=== PATIENT | male | born 1935 | race Caucasian/White ===

== ENCOUNTER 2017-10-08 15:38 | Emergency (ER) | payer MEDICARE, SELFPAY ==
[2017-10-08 15:40] VITALS: BP 154/99; PULSE 109; RESP 18; TEMP 38.8; O2SAT 97; BMI 28.3
--- NOTE | 2017-10-08 16:43 | RAD_ITS ---
STUDY: X-RAY CHEST REASON FOR EXAM: Male, 82 years old. Bronchitis. Cough. TECHNIQUE: Frontal and lateral views of the chest. COMPARISON: None. FINDINGS: The lungs are hyperexpanded. There are linear opacities at both bases compatible with atelectasis. There are no focal consolidations. There is no demonstrated pleural abnormality. There is borderline cardiomegaly. Normal mediastinum and lisa. There are prominent central pulmonary arteries. Normal visualized aortic arch and descending thoracic aorta. There is a dextroscoliosis of the thoracic spine. Normal visualized ribs, clavicles, and shoulders. There is no demonstrated abnormality of the visualized soft tissue structures of the upper abdomen. RAD/Chest PA and Lateral IMPRESSION: Borderline cardiomegaly with hyperexpansion and atelectasis. No acute pathology. Electronically Signed: Ruben Ortiz MD at 16:57 EST , Service support ,
[2017-10-08 17:53] VITALS: BP 114/68; PULSE 103; RESP 20; O2SAT 96
[2017-10-08 17:53] LABS: Absolute Lymphocyte Count 0.86 X10^3/ul (0.83-4.51); Absolute Neutrophil Count 7.6 X10^3/uL (2.0-7.7); Basophil# 0.01 X10^3/uL; Basophil% 0.1 % (0-1); Hematocrit 43.4 % (40-54); Hemoglobin 14.7 g/dl (13.0-16.5); Lymphocyte # 0.86 X10^3/ul (4.0); Lymphocyte % 9.3 % (19-41); Mean Corp Hgb Conc 33.9 g/gl (32-36); Mean Corpuscular Hgb 30.6 pg (27.0-32.0); Mean Corpuscular Volume 90.2 fL (80-94); Mean Platelet Vol. 10.5 fl (6.2-12.0); Monocyte# 0.84 X10^3/uL; Monocyte% 9.1 % (0-10); Neutrophil # 7.55 X10^3/uL (2.7-7.7); Neutrophil % 81.4 % (47-70); Platelet Count 141 K/mm3 (150-450); RBC Distribution Width SD 42.8 fl (35.1-43.9); Red Blood Count 4.81 M/mm3 (4.6-6.2); White Blood Count 9.3 K/mm3 (4.4-11.0)
[2017-10-08 17:54] LABS: POSITIVE COUNT NO; POSITIVE DIFFERENTIAL NO; POSITIVE MORPHOLOGY NO
[2017-10-08] MEDS: 0.9% Normal Saline 1,000 ML 999 ML IV (17:58)
[2017-10-08] MEDS: Acetaminophen 500 MG Tablet 1000 MG PO (17:58)
[2017-10-08 18:14] LABS: Anion Gap 8 (5-15); BUN 22 mg/dL (7-18); BUN/Creat Ratio 16.5 RATIO (10-20); Calcium,Total 8.8 mg/dL (8.5-10.1); Chloride 97 mmol/L (98-107); Creatinine, Serum 1.33 mg/dL (0.70-1.30); EST Glomerular Filtration Rate 55 mL/min (>60); Est Glom Filt Rate - Afr Amer 66 mL/min (>60); Estimated Creatinine Clearance 44.98 ml/min; Glucose 117 mg/dL (74-106); Potassium 3.3 mmol/L (3.5-5.1); Sodium Level 134 mmol/L (136-145)
[2017-10-08 18:15] LABS: Lactic Acid 1.6 mmol/L (0.4-2.0)
--- NOTE | 2017-10-08 19:26 | ED.DCSUM_ITS ---
- ER Visit Summary Date of Service: 10/08/17 Chief Complaint: Cough History of Present Illness: The patient is a 82 M who his primary care physician is in [place]. He reports that he is a cough began 5 days ago. Is productive yellow sputum without blood. He has had a fever to 102?, chills, and sweats. He has a sore throat is 5 out of 10 severity. He denies any chest pain or shortness of breath. She has been nausea and vomited 3 times. No blood in his emesis. He denies any abdominal pain or diarrhea. Physical Examination: Vitals: 101.9, 154/99, 109, 18, 97% room air is not hypoxic. General: Well-nourished and well-developed. Head: Normocephalic atraumatic. Neck: Supple, no lymphadenopathy. No JVD. Nontender. Cardiovascular: Regular rate and rhythm. No murmurs. Respiratory: No respiratory distress. Clear to auscultation bilaterally. Abdominal: Soft, nontender, nondistended, normal bowel sounds. No guarding, rebound, or peritoneal signs. Back: Nontender. Extremities: Nontender, no edema. Skin: Normal color, no rash. Neurologic: Alert and oriented ?3. Cranial nerves II through XII are intact. Normal strength and sensation. Psych: Normal affect. Test Results: CBC is marked for platelets 141, segmented neutrophils 81, lymphocytes of 9. Chem-7 is more for sodium 134, potassium 3.3, chloride 97, BUN 22, creatinine 1.33, glucose 117. Lactic acid is 1.6. Influenza is negative. Chest x-ray shows chronic changes, borderline cardiomegaly, and no infiltrate. Emergency Department Course and Treatment: She was treated with Tylenol p.o. and Zithromax p.o. He is resting comfortably and would like to go home. Treatment Plan: He will be discharged on Zithromax. Instructed to follow-up with his primary care physician in 3-5 days for another exam. Return to the emergency department for any worsening symptoms. Disposition: To home in improved and stable condition. Impression: 1. URI. This note was generated with [employer] software. It may contain incorrect words, spelling, and punctuation that were not noted in review of the chart prior to signing ED Disposition - Plan for ED Patient: Disposition: Home or Assisted Living Chief Complaint: Fever Instructions: ED Upper Resp Infec Abx Tx Prescriptions: Azithromycin [Zithromax] 250 mg PO DAILY #6 tablet Referrals: Doctor,Your [STAFF PHYSICIAN] - 3-5 Days
[2017-10-08 19:36] VITALS: BP 125/64; PULSE 94; RESP 18; O2SAT 94
[2017-10-08] MEDS: Azithromycin 250 MG Tablet 500 MG PO (19:36)
== END 2017-10-08 19:42 | disposition home or self-care (01) ==
PROVIDERS: Emergency Provider Emergency Medicine
DX: J06.9 Acute upper respiratory infection, unspecified (principal)
CPT/HCPCS: 71046; 80048; 83605; 85025; 87040; 87804; 96360; 99285; J7030; A4216

== ENCOUNTER 2019-03-01 23:59 | Emergency (ER) | payer MEDICARE, SELFPAY ==
[2019-03-01 23:59] VITALS: BP 115/70; PULSE 70; RESP 15; TEMP 36.6; O2SAT 97; BMI 26.5
--- NOTE | 2019-03-02 00:14 | RAD_ITS ---
STUDY: X-RAY CHEST REASON FOR EXAM: Male, 84 years old. Cough TECHNIQUE: Single AP portable view of the chest. COMPARISON: None. FINDINGS: The lungs are underexpanded. There is no demonstrated pleural abnormality. Normal size heart. Normal mediastinum and lisa. Normal visualized pulmonary arteries. Normal visualized aortic arch and descending thoracic aorta. There are diffuse degenerative changes of the visualized thoracic spine. There is degenerative osteoarthritis of the bilateral shoulders. There is no demonstrated abnormality of the visualized soft tissue structures of the upper abdomen. RAD/Chest PA and Lateral IMPRESSION: Degenerative changes, as described above. No demonstrated acute cardiopulmonary process. Electronically Signed: Hue Enriquez, at 0:51 EDT Tel , Service support ,
--- NOTE | 2019-03-02 00:15 | ED.VIS.GEN ---
History of Present Illness Chief Complaint: Complaint Informant: Patient Onset: Today Narrative: Increased urinary urgency throughout the day, he states he did fully urinate upon awakening. Had a fever today reported to 101 around 4 PM. Tylenol was given. History of BPH, saw urologist this past Sunday in [place]. Is not on Flomax. Denies abdominal distention. Increasing cough today normally chronic dry cough. No dyspnea. No chest pains. No vomiting or diarrhea. Normal bowel movements. Prior similar symptoms: No Past Medical History - Allergies and Home Meds Allergies/Adverse Reactions: Allergies No Known Allergies Allergy (Verified 03/02/19 00:03) Primary Care Physician: Care Physician,No Primary [NON-STAFF] - Smoking Status: Never smoker Review of Systems All systems negative except as indicated General: Reports: Fever. Denies: Chills, Sweats Eyes: Denies: Visual changes - bilaterally, Diplopia ENT: Denies: Rhinorrhea, Sore throat Cardiovascular: Denies: Chest pain, Palpitations Respiratory: Reports: Cough. Denies: Dyspnea, Dyspnea on exertion Gastrointestinal: Denies: Abdominal pain, Nausea, Vomiting, Diarrhea, Melena, Hematochezia Genitourinary: Denies: Dysuria, Hematuria, Frequency Musculoskeletal: Denies: Back pain, Extremity Pain Skin: Denies: Rash, Wounds Neurological: Denies: Headache, Weakness, Numbness Physical Exam Vital Signs/Narrative: Vital Signs Temp Pulse Resp BP Pulse Ox 03/01/19 23:59 97.8 F 70 15 115/70 97 Inital Vital Signs reviewed: Yes General: Well nourished, Well developed, No Acute Distress Head: Normocephalic, Atraumatic Eyes: Perrl, EOMI ENT: Moist mucous membranes, No rhinorrhea Neck: Supple, Nontender Cardiovascular: Regular rate, Regular rhythm, No murmurs Respiratory: No distress, CTA bilaterally, Chest nontender Abdomen: Soft, Nontender, Nondistended, Normal bowel sounds Back: Nontender, Normal Inspection. Negative for: CVA tenderness Extremities: Nontender, No edema Skin: Normal color, No rash Neurological: Alert, Oriented x3, Cranial nerves II-XII grossly intact, Normal Strength, Normal Sensation Psychological: Normal affect, Normal Mood Diagnostic/Tx/Re-eval Abnormal Lab Results 07/28/19 07/28/19 07/28/19 00:25 00:25 01:10 WBC 14.8 H RBC 4.74 Hgb 14.7 Hct 43.0 MCV 90.7 MCH 31.0 MCHC 34.2 RDW Std Deviation 40.8 RDW Coeff of Cecille 12.4 Plt Count 148 L MPV 10.4 Immature Gran % (Auto) 0.700 Neut % (Auto) 83.6 H Lymph % (Auto) 7.3 L [place] % (Auto) 8.1 Eos % (Auto) 0.1 Baso % (Auto) 0.2 Absolute Neuts (auto) 12.4 H Absolute Lymphs (auto) 1.08 Absolute Nucleated RBC 0.00 Nucleated RBC % 0 Sodium 138 Potassium 3.7 Chloride 103 Carbon Dioxide 28.0 Anion Gap 7 BUN 22 H Creatinine 1.44 H Estim Creat Clear Calc 40.13 Est GFR (MDRD) Af Amer 60 Est GFR (MDRD) Non-Af 50 L BUN/Creatinine Ratio 15.3 Glucose 125 H Calcium 8.9 Urine Color Straw Urine Clarity Sl. Cloudy Urine pH 6.0 Ur Specific [place] 1.010 Urine Protein Negative Urine Glucose (UA) Normal Urine Ketones Negative Urine Occult Blood 25 H Urine Nitrite Positive H Urine Bilirubin Negative Urine Urobilinogen Normal Ur Leukocyte Esterase 500 H Urine RBC 0 SEEN Urine WBC >100 SEEN Ur Squamous Epith Cells 0 SEEN Urine Bacteria 2+ Urine Mucus 0 SEEN - Medical Decision Making Patient vitals stable, nontoxic. Afebrile in the ED. Reported unclear if he is able to urinate therefore check labs. Creatinine 1.4, previous labs noted his creatinine 1.3. Likely chronic stage. White count 14 urine positive for infection urine culture sent. He is nontoxic, given Rocephin IV in the ED. Discussed outpatient treatment with antibiotics. Cipro started. Signs and symptoms discussed return otherwise follow-up with his PCP. All questions were answered. ED Disposition - Plan for ED Patient: Disposition: Home or Assisted Living Diagnosis: Urinary tract infection, Chronic kidney disease Instructions: Bladder Infection, Male (Adult), Chronic Kidney Disease Prescriptions: Ciprofloxacin [Cipro] 500 mg PO BID #20 tablet Referrals: Care Physician,No Primary [NON-STAFF] - Additional Instructions: Take antibiotic as prescribed. Follow-up with your doctor next 5 to 7 days for reevaluation.
[2019-03-02 00:45] LABS: Absolute Lymphocyte Count 1.08 X10^3/uL (0.83-4.51); Absolute Neutrophil Count 12.4 X10^3/uL (2.0-7.7); Basophil# 0.03 X10^3/uL; Basophil% 0.2 % (0-1); Eosinophil# 0.01 X10^3/uL; Eosinophils% 0.1 % (0-5); Hemoglobin 14.7 g/dL (13.0-16.5); Lymphocyte # 1.08 X10^3/ul (4.0); Lymphocyte % 7.3 % (19-41); Mean Corp Hgb Conc 34.2 g/dL (32-36); Mean Corpuscular Volume 90.7 fL (80-94); Mean Platelet Vol. 10.4 fl (6.2-12.0); Monocyte% 8.1 % (0-10); NRBC Flagged by Analyzer 0 % (0-5); Neutrophil # 12.39 X10^3/uL (2.7-7.7); Neutrophil % 83.6 % (47-70); Platelet Count 148 K/mm3 (150-450); RBC Distribution Width CV 12.4 % (11.6-14.6); RBC Distribution Width SD 40.8 fl (35.1-43.9); Red Blood Count 4.74 M/mm3 (4.6-6.2); White Blood Count 14.8 K/mm3 (4.4-11.0)
[2019-03-02 00:55] LABS: Anion Gap 7 (5-15); BUN 22 mg/dL (7-18); BUN/Creat Ratio 15.3 RATIO (10-20); Calcium,Total 8.9 mg/dL (8.5-10.1); Chloride 103 mmol/L (98-107); Creatinine, Serum 1.44 mg/dL (0.70-1.30); EST Glomerular Filtration Rate 50 mL/min (>60); Est Glom Filt Rate - Afr Amer 60 mL/min (>60); Estimated Creatinine Clearance 40.13 ml/min; Glucose 125 mg/dL (74-106); Potassium 3.7 mmol/L (3.5-5.1); Sodium Level 138 mmol/L (136-145)
[2019-03-02 01:04] VITALS: BP 121/62; PULSE 81; RESP 16; O2SAT 97
[2019-03-02 01:21] LABS: Mucous, Urine 0 SEEN /hpf (<or=2+); Red Blood Cells-Urine 0 SEEN /hpf (0-5); Squamous Epithelial Cells - UA 0 SEEN /hpf (0-5)
[2019-03-02 01:24] LABS: Color, Urine Straw (Yellow); Glucose, Dipstick Normal (Normal); Ketone-Dipstick Negative (Negative); Leukocyte Esterase-Dipstick 500 /ul (Negative); Nitrite-Dipstick Positive (Negative); Occult Blood-Urine 25 /ul (Negative); Protein-Dipstick Negative (Negative); Urine Bilirubin Dipstick Negative (Negative); Urine Clarity Sl. Cloudy (Clear); Urine Urobilinogen Normal (Normal)
[2019-03-02 01:36] LABS: Bacteria 2+ /hpf (None Seen); White Blood Cells >100 SEEN /hpf (0-5)
[2019-03-02] MEDS: Ceftriaxone 1 GM/50 ML BAG IV (02:30)
[2019-03-02 03:12] VITALS: BP 120/67; PULSE 78; RESP 16
== END 2019-03-02 03:20 | disposition home or self-care (01) ==
PROVIDERS: Emergency Provider Emergency Medicine
DX: N39.0 Urinary tract infection, site not specified (principal); N18.9 Chronic kidney disease, unspecified; R05 Cough; N40.0 Benign prostatic hyperplasia without lower urinary tract symptoms
CPT/HCPCS: 71046; 80048; 81001; 85025; 87086; 87088; 87186; 96365; 99283; J7030

== ENCOUNTER 2021-03-13 03:07 | Emergency (ER) | payer MEDICARE, SELFPAY ==
[2021-03-13 03:08] VITALS: BP 123/69; PULSE 100; RESP 16; TEMP 37.2; O2SAT 95; BMI 28.3
--- NOTE | 2021-03-13 03:30 | RAD_ITS ---
STUDY: X-RAY CHEST REASON FOR EXAM: Male, 86 years old. cough TECHNIQUE: Single AP portable view of the chest. COMPARISON: None. FINDINGS: The lungs are clear and expanded. There is no demonstrated pleural abnormality. Normal size heart. Normal mediastinum and lisa. Normal visualized pulmonary arteries. Normal visualized aortic arch and descending thoracic aorta. Normal visualized thoracic spine. There is degenerative osteoarthritis of the bilateral shoulders. There is no demonstrated abnormality of the visualized soft tissue structures of the upper abdomen. RAD/Chest 1 View (Portable) IMPRESSION: Degenerative changes, as described above. No demonstrated acute cardiopulmonary process. Electronically Signed: Hue Enriquez MD at 4:55 EDT Tel , Service support ,
[2021-03-13 04:00] LABS: Absolute Lymphocyte Count 0.94 X10^3/uL (0.83-4.51); Absolute Neutrophil Count 12.2 X10^3/uL (2.0-7.7); Basophil# 0.02 X10^3/uL; Basophil% 0.1 % (0-1); Hematocrit 46.2 % (40-54); Hemoglobin 15.3 g/dL (13.0-16.5); Lymphocyte # 0.94 X10^3/ul (0.83-4.51); Lymphocyte % 6.7 % (19-41); Mean Corp Hgb Conc 33.1 g/dL (32-36); Mean Corpuscular Hgb 30.2 pg (27.0-32.0); Mean Corpuscular Volume 91.3 fL (80-94); Mean Platelet Vol. 10.6 fl (6.2-12.0); Monocyte# 0.75 X10^3/uL; Monocyte% 5.3 % (0-10); NRBC Flagged by Analyzer 0 % (0-5); Neutrophil # 12.23 X10^3/uL (2.7-7.7); Neutrophil % 87.3 % (47-70); Platelet Count 163 K/mm3 (150-450); RBC Distribution Width CV 12.3 % (11.6-14.6); Red Blood Count 5.06 M/mm3 (4.6-6.2)
[2021-03-13 04:21] LABS: Anion Gap 7 (5-15); BUN 23 mg/dL (7-18); BUN/Creat Ratio 17.7 RATIO (10-20); Calcium,Total 9.1 mg/dL (8.5-10.1); Chloride 101 mmol/L (98-107); EST Glomerular Filtration Rate 56 mL/min (>60); Est Glom Filt Rate - Afr Amer 68 mL/min (>60); Estimated Creatinine Clearance 41.54 ml/min; Glucose 117 mg/dL (74-106); Potassium 3.9 mmol/L (3.5-5.1); Sodium Level 139 mmol/L (136-145)
[2021-03-13 04:27] LABS: Bacteria 0 SEEN /hpf (None Seen); Mucous, Urine 0 SEEN /hpf (<or=2+); Red Blood Cells-Urine 0 SEEN /hpf (0-5); Squamous Epithelial Cells - UA 0 SEEN /hpf (0-5); White Blood Cells 0 SEEN /hpf (0-5)
--- NOTE | 2021-03-13 04:56 | EX.ED.DYSGE1 ---
HPI History of Present Illness Chief Complaint: Fever Informant: patient and spouse/S.O. Narrative Narrative: Patient had a fever this evening. He states he took Tylenol and it kept going up. It went as high as 100.4. He had some mild chills. He had some mild nausea. He vomited once. He states since then his fever went down and he feels good. He has a chronic cough that has not changed. He has chronic nasal drainage but is not different. He was treated with Cipro recently after seeing an urgent care center. He is no longer on this and it stopped about 3 days ago. They think this was for possible prostatitis. However, he has no trouble urinating. He has no pain with bowel movements. He has no pain in the abdomen or pelvic area. There is no rashes. No known exposure to Covid. [facility] Medical History GERD (gastroesophageal reflux disease) High cholesterol Hypertension Myocardial infarct Home Medications atorvastatin 80 mg PO QHS 10/08/17 [History Last Taken Unknown] lisinopril 10 mg PO DAILY 10/08/17 [History Last Taken Unknown] aspirin 81 mg PO DAILY@0800 03/02/19 [History Last Taken Unknown] cholecalciferol (vitamin D3) 2,000 unit PO DAILY 03/02/19 [History Last Taken Unknown] ezetimibe 10 mg PO DAILY 03/02/19 [History Last Taken Unknown] hydrochlorothiazide 50 mg PO DAILY 03/02/19 [History Last Taken Unknown] metoprolol succinate 25 mg PO DAILY 03/02/19 [History Last Taken Unknown] multivitamin with minerals 1 ea PO DAILY 03/02/19 [History Last Taken Unknown] omeprazole magnesium 20 mg PO QWEEK 03/02/19 [History Last Taken Unknown] potassium chloride 8 meq PO DAILY 03/02/19 [History Last Taken Unknown] finasteride 5 mg PO DAILY 03/13/21 [History Last Taken Unknown] Allergy/AdvReac Type Severity Reaction Status Date / Time No Known Allergies Allergy Verified 03/13/21 03:10 Surgical History History of coronary artery stent placement Social History Smoking Status: Never smoker ROS ROS ED Constitutional Constitutional ED: Reports chills and fever(s); Denies sweats Eyes Eyes: Denies change in vision ENT ENT ED: Denies ear pain, rhinorrhea or sore throat Cardiovascular Cardiovascular: Denies chest pain or palpitations Respiratory/Chest Respiratory/Chest: Denies cough or dyspnea Gastrointestinal Gastrointestinal: Reports vomiting and other Details: Patient vomited once but he actually is not nauseated at all. ; Denies abdominal pain, constipation, diarrhea, melena or nausea Genitourinary Genitourinary ED: Denies dysuria or hematuria Musculoskeletal Musculoskeletal: Denies arthralgias, back pain or myalgias Integumentary Denies abscess or rash Neurologic Neurologic: Denies headache(s), paresthesias or weakness Endocrine Endocrinology: Denies polydipsia or polyuria Allergic/Immunologic Allergic/Immunologic ED: Denies mouth swelling or urticaria EXAM Physical Exam Const Vital Signs: 03/13/21 03:08 03/13/21 05:08 Temperature 99 F 98.1 F Temperature Source Oral Oral Pulse Rate 100 87 Respiratory Rate 16 22 H Blood Pressure 123/69 H 118/57 L Blood Pressure Mean 87 77 Pulse Ox 95 96 Oxygen Delivery Method Room Air Room Air Positive well nourished and well developed General Appearance ED: well developed HEENT Negative for trauma Neck supple Chest Wall inspection of chest normal Resp normal respiratory effort and clear to auscultation bilaterally Cardio regular rate, regular rhythm and no murmurs GI normal to inspection, nondistended, normoactive bowel sounds, non-tender and non-distended Palpation: soft Back/Spine no CVA tenderness Extremity normal to inspection General Extremety ED: Negative for edema or tenderness General Extremity: Negative for edema Neuro oriented x3 Sensorium / Orientation: alert Psych mental status grossly normal Skin no rashes or lesions noted and no wounds MDM MDM MDM Narrative Medical decision making narrative: Patient does have a slight elevation of his white count at 14.0. This is a nonspecific finding but certainly can go along with infection. Electrolytes are showing no marked abnormalities. Urinalysis came back negative so chest x-ray shows no acute process. Patient's been checked 2 more times. He is still asymptomatic. We have rechecked his temperature and its not elevated. He has no symptoms of prostatitis such as urinary changes or pain or pressure with a bowel movement. He is already been treated with Cipro. At this point we have pending urine and blood cultures. I think it is okay to get him home pending these. If he develops specific symptoms other than a low-grade fever they certainly should return. Especially if he develops urinary symptoms, abdominal or pelvic pain, trouble breathing or other findings. The highest temperature that we have reported was 100.4. Lab Data Labs: Laboratory Results - last 24 hr 03/13/21 03/13/21 03/13/21 03:20 03:20 04:15 WBC 14.0 H RBC 5.06 Hgb 15.3 Hct 46.2 MCV 91.3 MCH 30.2 MCHC 33.1 RDW Std Deviation 41.0 RDW Coeff of Cecille 12.3 Plt Count 163 MPV 10.6 Immature Gran % (Auto) 0.600 Neut % (Auto) 87.3 H Lymph % (Auto) 6.7 L [place] % (Auto) 5.3 Eos % (Auto) 0.0 Baso % (Auto) 0.1 Absolute Neuts (auto) 12.2 H Absolute Lymphs (auto) 0.94 Nucleated RBC % 0 Sodium 139 Potassium 3.9 Chloride 101 Carbon Dioxide 31.0 Anion Gap 7 BUN 23 H Creatinine 1.30 Estim Creat Clear Calc 41.54 Est GFR (MDRD) Af Amer 68 Est GFR (MDRD) Non-Af 56 L BUN/Creatinine Ratio 17.7 Glucose 117 H Calcium 9.1 Urine Color Yellow Urine Clarity Clear Urine pH 8.0 Ur Specific [place] 1.010 Urine Protein Negative Urine Glucose (UA) Normal Urine Ketones 5 H Urine Occult Blood Negative Urine Nitrite Negative Urine Bilirubin Negative Urine Urobilinogen Normal Ur Leukocyte Esterase Negative Urine RBC 0 SEEN Urine WBC 0 SEEN Ur Squamous Epith Cells 0 SEEN Urine Bacteria 0 SEEN Urine Mucus 0 SEEN Radiography Diagnostic Testing: Radiology Impression Chest X-Ray 03/13/21 03:30 IMPRESSION: Degenerative changes, as described above. No demonstrated acute cardiopulmonary process. Electronically Signed: Hue Enriquez MD at 4:55 EDT Tel , Service support , Discharge Plan Triage Chief Complaint: Fever ED Provider: Carlos Rivera Dx/Rx/DC Orders Clinical Impression: History of fever, Leukocytosis Instructions: ED FUO Adult Prescriptions: No Action atorvastatin 80 MG tablet 80 mg PO QHS RF: 0 lisinopril 10 MG tablet 10 mg PO DAILY RF: 0 potassium chloride 8 MEQ capsule, extended release 8 meq PO DAILY RF: 0 aspirin 81 MG tablet,chewable 81 mg PO DAILY@0800 RF: 0 hydrochlorothiazide 25 MG tablet 50 mg PO DAILY RF: 0 metoprolol succinate 25 MG tablet extended release 24 hr 25 mg PO DAILY RF: 0 multivitamin with minerals 1 EACH tablet 1 ea PO DAILY RF: 0 ezetimibe 10 MG tablet 10 mg PO DAILY RF: 0 omeprazole magnesium 20 MG tablet,delayed release (DR/EC) 20 mg PO QWEEK RF: 0 cholecalciferol (vitamin D3) 2,000 UNIT capsule 2,000 unit PO DAILY RF: 0 finasteride 5 mg Tablet 5 mg PO DAILY RF: 0 Referrals: HUGO PEREZ [Other] - 1-2 Days if not improving Disposition Disposition: Home, Self Care
[2021-03-13 05:04] LABS: Color, Urine Yellow (Yellow); Glucose, Dipstick Normal (Normal); Ketone-Dipstick 5 mg/dl (Negative); Leukocyte Esterase-Dipstick Negative /ul (Negative); Nitrite-Dipstick Negative (Negative); Occult Blood-Urine Negative /ul (Negative); Protein-Dipstick Negative (Negative); Urine Bilirubin Dipstick Negative (Negative); Urine Clarity Clear (Clear); Urine Urobilinogen Normal (Normal)
[2021-03-13 05:08] VITALS: BP 118/57; PULSE 87; RESP 22; TEMP 36.7; O2SAT 96
[2021-03-13 06:25] VITALS: BP 113/66; PULSE 83; RESP 22; O2SAT 97
== END 2021-03-13 06:27 | disposition home or self-care (01) ==
PROVIDERS: Emergency Provider Emergency Medicine
DX: D72.829 Elevated white blood cell count, unspecified (principal); K21.9 Gastro-esophageal reflux disease without esophagitis; E78.00 Pure hypercholesterolemia, unspecified; I10 Essential (primary) hypertension; Z79.899 Other long term (current) drug therapy
CPT/HCPCS: 71045; 80048; 81001; 85025; 87040; 87086; 87088; 87426; 96360; 99284; J7040; A4216

== ENCOUNTER 2023-10-13 23:33 | Emergency (ER) | payer MEDICARE, SELFPAY ==
[2023-10-13 23:34] VITALS: BP 126/70; PULSE 88; RESP 20; TEMP 36.6; O2SAT 93; BMI 28.3
--- NOTE | 2023-10-13 23:51 | EDS_ITS ---
HPI History of Present Illness Chief Complaint: Fever [facility] Medical History GERD (gastroesophageal reflux disease) High cholesterol Hypertension Myocardial infarct Home Medications atorvastatin 80 mg tablet 80 mg PO QHS 10/08/17 [History Last Taken Unknown] lisinopril 10 mg tablet 10 mg PO DAILY 10/08/17 [History Last Taken Unknown] aspirin 81 mg chewable tablet 81 mg PO DAILY@0800 03/02/19 [History Last Taken Unknown] cholecalciferol (vitamin D3) 50 mcg (2,000 unit) capsule 2,000 unit PO DAILY 03/02/19 [History Last Taken Unknown] ezetimibe 10 mg tablet 10 mg PO DAILY 03/02/19 [History Last Taken Unknown] hydrochlorothiazide 25 mg tablet 50 mg PO DAILY 03/02/19 [History Last Taken Unknown] metoprolol succinate 25 mg tablet,extended release 24 hr 25 mg PO DAILY 03/02/19 [History Last Taken Unknown] multivitamin with minerals 1 ea PO DAILY 03/02/19 [History Last Taken Unknown] omeprazole magnesium 20 mg tablet,delayed release 20 mg PO QWEEK 03/02/19 [History Last Taken Unknown] potassium chloride 8 mEq capsule,extended release 8 meq PO DAILY 03/02/19 [History Last Taken Unknown] finasteride 5 mg tablet 5 mg PO DAILY 03/13/21 [History Last Taken Unknown] Allergy/AdvReac Type Severity Reaction Status Date / Time No Known Allergies Allergy Verified 10/13/23 23:36 Surgical History History of coronary artery stent placement Social History Smoking Status: Never smoker EXAM Physical Exam Const Vital Signs: 10/13/23 23:34 10/13/23 23:36 10/14/23 01:35 Temperature 97.9 F 98 F Temperature Source Oral Oral Pulse Rate 88 74 Respiratory Rate 20 H 18 Respiratory Effort Normal Respiratory Pattern Normal Blood Pressure 126/70 H 112/57 L Blood Pressure Mean 88 75 Pulse Ox 93 98 Oxygen Delivery Method Room Air Room Air MDM MDM MDM Narrative Medical decision making narrative: HISTORY OF PRESENT ILLNESS: 88-year-old male here with intermittent fever for the last 3 days. Notes body aches. Notes he took Tylenol prior to arrival. He further states he noted a cough today. He denies any chest pain, shortness of breath. Denies abdominal pain, vomiting. Denies any diarrhea. Denies any urinary complaints. Denies any rashes. Denies any sick contacts. States he is fully vaccinated. REVIEW OF SYSTEMS: Pertinent positives: Fever Pertinent negatives: As per HPI PHYSICAL EXAM: Nursing triage notes reviewed, Vital signs reviewed Constitutional: please see [facility] HENT: MMM Eyes: Pupils equal round and reactive to light, Extraocular muscles intact Neck: No stridor, no JVD, full neck ROM Lungs: Clear to auscultation, No wheezing or rales. No increased work of breathing, no conversational dyspnea, no accessory muscle use, no nasal flaring. No respiratory distress noted Heart: Regular rate and rhythm, No murmurs, No rubs and No gallops, 2+ distal pulses (radial, femoral, posterior tibial) in all extremities Abdomen: Soft, there is no tenderness, no right upper quadrant tenderness, rigidity, rebound or guarding, no obvious peritoneal signs, no palpable pulsatile abdominal masses, no auscultated abdominal bruit : No CVAT Extremities: No edema, noted attached tick to the right inner arm. There is surrounding erythema around tick bite. Neuro: No focal neurological deficits, cranial nerves II through XII intact, 5/5 strength in all extremities. Intact sensation to light touch in all extremities, 2+ reflexes bilateral patella tendons. Normal gait. No ataxia. Skin: Tick noted to right inner arm, surrounding erythema noted, no jaundice MEDICAL DECISION MAKING: Chief Complaint: Fever External records reviewed: Last ED visit in 2020 for fever. This time he was found to have a leukocytosis and was discharged Factors affecting care: BPH, hyperlipidemia, type 2 diabetes, hypertension, GERD [facility] Narrative: Patient was initially hemodynamically stable, afebrile and nontoxic-appearing. Exam without focus of infection. Lungs were clear. No rashes. HEENT exam unremarkable I considered the following differential diagnosis: UTI, pneumonia, viral illness, tickborne illness I obtained a broad lab and imaging workup to further elucidate the etiology of the patient's complaints. I treat the patient 1 L normal saline, Toradol. ALL IMAGES (IF OBTAINED) HAVE BEEN PERSONALLY REVIEWED AND INTERPRETED BY MYSELF. CBC without leukocytosis, severe anemia, no thrombocytopenia. BMP with mild hypokalemia, no other electrolyte abnormalities, no evidence of metabolic acidosis or endorgan hypoperfusion with a normal anion gap, noted CKD LFTs with mild hyperbilirubinemia otherwise no other significant liver function abnormalities Lactate is wnl indicating no end-organ hypoperfusion and/or hypoxia. Urinalysis shows no evidence of urinary inflammation suggestive of UTI The etiology of patient's complaints likely secondary to tick bite. Give doxycycline (1 dose 200 mg) for prophylaxis. The patient and/or family, caregivers express understanding. The patient and/or family, caregivers agrees with the plan. Shared decision making: I will have a discussion with the patient and or visitors regarding risk/benefits of further testing or admission. They will be made aware of of the risk/benefits inherent in this decision they will be given the opportunity to voice understanding. Total critical care time today provided was at least 0 minutes. This excludes separately billable procedures. Critical care time (if documented) is secondary to the patient having high probability of clinically significant/life threatening deterioration in the patient's condition which required my urgent intervention. Impression: 1. Fever 2. Tick bite 3. Hyperbilirubinemia Dispo: discharge This note was generated with [employer] dictation software. It may contain incorrect words, spelling, and punctuation that were not noted in review of the chart prior to signing. Lab Data Labs: Laboratory Results - last 24 hr 10/14/23 10/14/23 10/14/23 00:28 00:33 01:30 WBC 4.3 L RBC 4.57 L Hgb 13.6 Hct 41.2 MCV 90.2 MCH 29.8 MCHC 33.0 RDW Std Deviation 41.5 RDW Coeff of Cecille 12.5 Plt Count 55 L MPV 11.9 Immature Gran % (Auto) 0.500 Neut % (Auto) 83.9 H Lymph % (Auto) 8.9 L [place] % (Auto) 6.5 Eos % (Auto) 0.0 Baso % (Auto) 0.2 Absolute Neuts (auto) 3.6 Absolute Lymphs (auto) 0.38 L Nucleated RBC % 0 Differential Comment SCANNED Sodium 136 Potassium 3.4 L Chloride 104 Carbon Dioxide 25.0 Anion Gap 7 BUN 33 H Creatinine 1.46 H Estim Creat Clear Calc 38.91 Est GFR (MDRD) Af Amer 59 L Est GFR (MDRD) Non-Af 49 L BUN/Creatinine Ratio 22.6 H Glucose 146 H Lactic Acid 1.1 Calcium 8.2 L Total Bilirubin 1.60 H AST 62 H ALT 35 Alkaline Phosphatase 53 Total Protein 6.2 L Albumin 2.9 L Globulin 3.3 Albumin/Globulin Ratio 0.9 Urine Color Yellow Urine Clarity Sl. Cloudy Urine pH 6.0 Ur Specific [place] 1.020 Urine Protein 100 H Urine Glucose (UA) Normal Urine Ketones 50 H Urine Occult Blood 250 H Urine Nitrite Negative Urine Bilirubin Negative Urine Urobilinogen 1 H Ur Leukocyte Esterase Negative Urine RBC 0 SEEN Urine WBC 5-10 SEEN Ur Squamous Epith Cells 10-25 SEEN Ur Transition Epith Cell 0 SEEN Ur Renal Epithelial Cell 0 SEEN Urine Bacteria 4+ Urine Mucus 0 SEEN Radiography Diagnostic Testing: Clinical Impression(s) from Imaging Studies Chest X-Ray 10/14/23 00:07 IMPRESSION: No evidence of acute cardiopulmonary disease. Electronically Signed: Boy Muhammad DO at 1:06 EST Reading Location ID and State: [facility] / [place] Tel , Service support , Discharge Plan Triage Chief Complaint: Fever ED Provider: Ken Quigley Dx/Rx/DC Orders Prescriptions: No Action atorvastatin 80 MG tablet 80 mg PO QHS lisinopril 10 MG tablet 10 mg PO DAILY Patient Comments: potassium chloride 8 MEQ capsule, extended release 8 meq PO DAILY aspirin 81 MG tablet,chewable 81 mg PO DAILY@0800 hydrochlorothiazide 25 MG tablet 50 mg PO DAILY metoprolol succinate 25 MG tablet extended release 24 hr 25 mg PO DAILY multivitamin with minerals 1 EACH tablet 1 ea PO DAILY ezetimibe 10 MG tablet 10 mg PO DAILY omeprazole magnesium 20 MG tablet,delayed release (DR/EC) 20 mg PO QWEEK Rx Instructions: take on sunday & cholecalciferol (vitamin D3) 2,000 UNIT capsule 2,000 unit PO DAILY finasteride 5 mg Tablet 5 mg PO DAILY Primary Care Provider: Julio César Kemp,Out of Referrals: Julio César Kemp,Out of [Primary Care Provider] -
--- OUTSIDE RECORDS SUMMARY | 2023-10-13 23:57 | XMS RPT_ITS | CCD ---
Author Name Unknown Address [address] [place] [address] Organization [facility] Care Team Providers Care Bookkeeping Assistant Name Role Phone Perry Amaya Unavailable Unavailable Perry Amaya Unavailable Unavailable No Doctor Assigned, Nodr Unavailable Unavail able Perry Amaya Unavailable Unavailable Perry Amaya Unavailable Unavailable No Doctor Assigned, Nodr Unavailable Unavail able Hugo Cunningham Primary Care Provider KOLE KELLER Admitting Unavailable HUGO CUNNINGHAM Referring Unava ilable HUGO CUNNINGHAM Primary Care Unava ilable Hugo Cunningham Primary Care Provider Cinthya Barbour Unavailable Ana ONOFRE, Hugo De Guzman Primary Care Provi tobias Cinthya Barbour MD Unavailable [phone] Hugo Cunningham MD Primary Care Provi tobias Cinthya Barbour MD Unavailable Hugo Cunningham MD Primary Care Provi tobias BOY NEWMAN Referring Unavail able BOY NEWMAN Attending Unavail able HUGO CUNNINGHAM Primary Care Unava ilable Hugo Cunningham Primary Care Provider Ana ONOFRE, Hugo De Guzman Primary Care Provi tobias Cinthya Barbour MD Unavailable Hugo Cunningham Primary Care Provider JUSTIN CUNNINGHAMINE LESLEY Primary Care Unava ilable Giannetto, Hugo A Primary Care Provider Ana ONOFRE, Hugo De Guzman Primary Care Provi tobias Cinthya Barbour MD Unavailable Ana, Hugo A Primary Care Provider GIANNMAXO, [facility] Primary Care Unava ilable GIANNETTO, HUGO LESLEY Primary Care Unava ilable HARBRECHT, BOY GALVAN Attending Unavail able MILDRED, CINTHYA SOMERS Attending Unavailable [facility] Care Unava ilable GIANNETTO, HUGO LESLEY Referring Unava ilable HARBRECHT, BOY GALVAN Attending Unavail able [facility], [facility] Primary Care Unava ilable GIANNETTO, HUGO Referring Unavailable GIANNETTO, HUGO Attending Unavailable GIANNETTO, HUGO Referring Unavailable GIANNETTO, HUGO Attending Unavailable Ana ONOFRE, [facility] Primary Care Provider Ana ONOFRE, Hugo Ochoa Primary Care Provider JONAS BINGHAM, FLORES Arroyo Attending Unavailabl e GIANNETTO, HUGO A Primary Care Unavailabl e GIANNETTO, [facility] A Primary Care Unavailabl e GIANNETTO, [facility] A Primary Care Unavailabl e JONAS II, FLORES Arroyo Attending Unavailabl e GIANNMAXO, HUGO A Primary Care Unavailabl e ARPANRUTH KLEIN Referring Unavailable GIANNETTO, HUGO A Primary Care Unavailabl e ARPANRUTH NOLAN Attending Unavailable GIANNETTO, HUGO A Primary Care Unavailabl e GIANNETTO, HUGO A Primary Care Unavailabl e GIANNETTO, [facility] A Primary Care Unavailabl e JONAS BINGHAM, FLORES Arroyo Attending Unavailabl e GIANNETTO, HUGO A Primary Care Unavailabl e GIANNETTO, HUGO A Primary Care Unavailabl e GIANNETTO, HUGO A Referring Unavailabl e GIANNETTO, [facility] A Primary Care Unavailabl e JONAS BINGHAM, FLORES Arroyo Attending Unavailabl e GIANNETTO, HUGO A Primary Care Unavailabl e STAINBROOK JR JR, COLE Attending Unavaila ble HUGO CUNNINGHAM A Referring Unavailabl e STAINBROOK JR JR, COLE Attending Unavaila ble ANA HUGO A Primary Care Unavailabl e SELF, SELF Referring Unavailable STAINBROOK JR JR, COLE Attending Unavaila ble GINANCY HUGO A Primary Care Unavailabl e STAINBROOK JR JR, COLE Referring Unavaila ble STAINBROOK JR JR, COLE Attending Unavaila ble ANA HUGO A Primary Care Unavailabl e STAINBROOK JR JR, COLE Referring Unavaila ble STAINBROOK JR JR, COLE Attending Unavaila ble ANA HUGO A Primary Care Unavailabl e STAINBROOK JR JR, COLE Referring Unavaila ble STAINBROOK JR JR, COLE Attending Unavaila ble GINANCY HUGO A Primary Care Unavailabl e STAINBROOK JR JR, COLE Referring Unavaila ble STAINBROOK JR JR, COLE Attending Unavaila ble ANA HUGO A Primary Care Unavailabl e STAINBROOK JR JR, COLE Referring Unavaila ble GIRENEEETTRupali, HUGO A Primary Care Unavailabl e STAINBROOK JR JR, COLE Referring Unavaila ble STAINBROOK JR JR, COLE Attending Unavaila ble ANA HUGO A Primary Care Unavailabl e STAINBROOK JR JR, COLE Referring Unavaila ble STAINBROOK JR JR, COLE Attending Unavaila ble GINANCY HUGO A Primary Care Unavailabl e SELF, SELF Referring Unavailable STAINBROOK JR JR, COLE Attending Unavaila ble STAINBROOK JR JR, COLE Referring Unavaila ble ANA HUGO A Primary Care Unavailabl e STAINBROOK JR JR, COLE Attending Unavaila ble STAINBROOK JR JR, COLE Attending Unavaila ble ANA HUGO A Primary Care Unavailabl e GIANNMELONIE, HUGO A Referring Unavailabl e Allergies Allergy Classification Reported Allergen(s) Allergy Type Date of Onset Reaction(s) Facility (1 source) No Known Medication Allergies; Translations: [No Known Medication Allergies] Propensity to adverse reactions to drug (disorder) [facility] Repository (10 sources) celecoxib; Translations: [CELECOXIB] Drug Allergy 1 [facility] (1 source) ALLERGIES NOT ON FILE; Translations: [ALLERGIES NOT ON FILE] Propensity to adverse reactions (disorder) [facility] Repository Medications Current Medications Medication Drug Class(es) Dates Sig (Normalized) Sig (Original) aspirin 81 mg delayed release oral tablet (20 sources) Platelet Aggregation Inhibitor, Nonsteroidal Anti-inflammatory Drug take 1 tablet by mouth once daily Aspirin [address] tablet Take 1 tablet by mouth daily. Active Completed/Discontinued Medications Medication Drug Class(es) Dates Sig (Normalized) Sig (Original) finasteride 5 mg oral tablet (20 sources) 5-alpha Reductase Inhibitor Start: 10-30-2019 End: 02-02-2023 finasteride (PROSCAR) 5 mg tablet Take 5 mg by mouth. 0 02/16/2021 Active Problems Active Problems Problem Classification Problem Date Documented Date Episodic/Chronic Abdominal pain (2 sources) Lower abdominal pain, unspecified; Translations: [Lower abdominal pain, unspecified] Onset: 05-25-2023 Episodic Cataract (15 sources) Combined form of senile cataract; Translations: [Combined forms of age-related cataract, unspecified eye] Onset: 01-25-2016 01-25-2016 Chronic Coronary atherosclerosis and other heart disease (19 sources) Coronary arteriosclerosis in knik artery; Translations: [Atherosclerotic heart disease of knik coronary artery without angina pectoris] Onset: 12-09-2019 12-09-2019 Chronic Diabetes mellitus without complication (13 sources) Type 2 diabetes mellitus without complication; Translations: [Type 2 diabetes mellitus without complications] Onset: 12-10-2014 04-03-2017 Chronic Diabetes mellitus without complication (19 sources) Prediabetes; Translations: [Prediabetes] Onset: 01-25-2016 01-25-2016 Episodic Disorders of lipid metabolism (20 sources) Mixed hyperlipidemia; Translations: [Mixed hyperlipidemia] Onset: 12-09-2019 12-09-2019 Chronic Essential hypertension (18 sources) Essential hypertension; Translations: [Essential (primary) hypertension] Onset: 12-09-2019 12-09-2019 Chronic Glaucoma (16 sources) Suspected bilateral glaucoma; Translations: [Preglaucoma, unspecified, bilateral] Onset: 01-25-2016 01-25-2016 Chronic Hyperplasia of prostate (15 sources) Benign prostatic hyperplasia; Translations: [Benign prostatic hyperplasia without lower urinary tract symptoms] Onset: 01-30-2020 01-30-2020 Chronic Immunizations and screening for infectious disease (6 sources) Vaccination needed; Translations: [Encounter for immunization] Onset: 07-31-2023 Episodic Inflammatory conditions of male genital organs (9 sources) Balanitis; Translations: [Balanitis] Onset: 04-04-2021 Chronic Malaise and fatigue (19 sources) Fatigue; Translations: [Other fatigue] Onset: 04-19-2021 04-19-2021 Episodic Nutritional deficiencies (13 sources) Vitamin D deficiency; Translations: [Vitamin D deficiency, unspecified] Onset: 07-31-2023 07-31-2023 Chronic Osteoarthritis (20 sources) Osteoarthritis of left knee joint; Translations: [Unilateral primary osteoarthritis, left knee] Onset: 07-31-2023 Chronic Osteoporosis (3 sources) Senile osteoporosis; Translations: [Age-related osteoporosis without current pathological fracture] Onset: 08-30-2023 08-22-2023 Chronic Other aftercare (6 sources) 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; Translations: [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] Onset: 11-07-2022 Episodic Other aftercare (12 sources) Drug therapy finding; Translations: [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] Onset: 07-31-2023 07-31-2023 Episodic Other aftercare (13 sources) Long-term current use of aspirin; Translations: [terminal superintendent (current) use of aspirin] Onset: 07-31-2023 07-31-2023 Episodic Other aftercare (1 source) terminal superintendent (current) use of aspirin; Translations: [terminal superintendent (current) use of aspirin] Onset: 07-31-2023 Episodic Other bone disease and musculoskeletal deformities (10 sources) Disorder of skeletal system; Translations: [Disorder of bone, unspecified] Onset: 07-31-2023 07-31-2023 Episodic Other bone disease and musculoskeletal deformities (8 sources) Osteopenia; Translations: [Other specified disorders of bone density and structure, unspecified site] Onset: 08-22-2023 08-22-2023 Episodic Other bone disease and musculoskeletal deformities (2 sources) Other specified disorders of bone density and structure, left thigh; Translations: [Other specified disorders of bone density and structure, left thigh] Onset: 10-08-2023 Episodic Other bone disease and musculoskeletal deformities (2 sources) Other specified disorders of bone density and structure, unspecified site; Translations: [Other specified disorders of bone density and structure, unspecified site] Onset: 08-22-2023 Episodic Other bone disease and musculoskeletal deformities (2 sources) Disorder of bone, unspecified; Translations: [Disorder of bone, unspecified] Onset: 07-31-2023 Episodic Other bone disease and musculoskeletal deformities (2 sources) Disorder of cartilage, unspecified; Translations: [Disorder of cartilage, unspecified] Onset: 07-31-2023 Episodic Other connective tissue disease (10 sources) Pain of bilateral hands; Translations: [Pain in right hand] Onset: 07-31-2023 07-31-2023 Episodic Other connective tissue disease (10 sources) Biceps tendinitis; Translations: [Bicipital tendinitis, right shoulder] Onset: 07-31-2023 07-31-2023 Episodic Other connective tissue disease (12 sources) H/O: osteoarthritis; Translations: [Personal history of other diseases of the musculoskeletal system and connective tissue] Onset: 07-31-2023 07-31-2023 Episodic Other connective tissue disease (4 sources) Bilateral impingement syndrome of shoulders; Translations: [Impingement syndrome of right shoulder] Onset: 08-22-2023 08-22-2023 Episodic Other connective tissue disease (4 sources) Calcific tendinitis of right shoulder; Translations: [Calcific tendinitis of right shoulder] Onset: 08-22-2023 08-22-2023 Episodic Other connective tissue disease (2 sources) Impingement syndrome of right shoulder; Translations: [Impingement syndrome of right shoulder] Onset: 08-22-2023 Episodic Other connective tissue disease (2 sources) Impingement syndrome of left shoulder; Translations: [Impingement syndrome of left shoulder] Onset: 08-22-2023 Episodic Other connective tissue disease (2 sources) Calcific tendinitis of right shoulder; Translations: [Calcific tendinitis of right shoulder] Onset: 08-22-2023 Episodic Other connective tissue disease (2 sources) Personal history of other diseases of the musculoskeletal system and connective tissue; Translations: [Personal history of other diseases of the musculoskeletal system and connective tissue] Onset: 07-31-2023 Episodic Other connective tissue disease (2 sources) Pain in right hand; Translations: [Pain in right hand] Onset: 07-31-2023 Episodic Other connective tissue disease (2 sources) Pain in left hand; Translations: [Pain in left hand] Onset: 07-31-2023 Episodic Other connective tissue disease (2 sources) Bicipital tendinitis, right shoulder; Translations: [Bicipital tendinitis, right shoulder] Onset: 07-31-2023 Episodic Other connective tissue disease (2 sources) Bicipital tendinitis, left shoulder; Translations: [Bicipital tendinitis, left shoulder] Onset: 07-31-2023 Episodic Other diseases of kidney and ureters (2 sources) Other specified disorders of kidney and ureter; Translations: [Other specified disorders of kidney and ureter] Onset: 05-31-2023 Chronic Other eye disorders (3 sources) H/O: R cataract extraction; Translations: [Cataract extraction status, right eye] Episodic Other eye disorders (3 sources) H/O: L cataract extraction; Translations: [Cataract extraction status, left eye] Episodic Other eye disorders (1 source) Dermatochalasis of right upper eyelid; Translations: [Dermatochalasis] 04-05-2023 Episodic Other lower respiratory disease (3 sources) Hypercapnia; Translations: [Other abnormalities of breathing] Onset: 08-22-2023 08-22-2023 Episodic Other lower respiratory disease (2 sources) Other abnormalities of breathing; Translations: [Other abnormalities of breathing] Onset: 08-22-2023 Episodic Other nervous system disorders (2 sources) Other chronic pain; Translations: [Other chronic pain] Onset: 07-31-2023 Chronic Other non-traumatic joint disorders (14 sources) Pain in left knee; Translations: [Pain in joint, lower leg] Onset: 07-31-2023 Episodic Other non-traumatic joint disorders (11 sources) Pain in wrist; Translations: [Pain in right wrist] Onset: 07-31-2023 07-31-2023 Episodic Other non-traumatic joint disorders (10 sources) Bilateral chronic pain of upper limbs; Translations: [Pain in right shoulder] Onset: 07-31-2023 07-31-2023 Episodic Other non-traumatic joint disorders (2 sources) Pain in right wrist; Translations: [Pain in right wrist] Onset: 07-31-2023 Episodic Other non-traumatic joint disorders (2 sources) Pain in left wrist; Translations: [Pain in left wrist] Onset: 07-31-2023 Episodic Other non-traumatic joint disorders (2 sources) Pain in right shoulder; Translations: [Pain in right shoulder] Onset: 07-31-2023 Episodic Other non-traumatic joint disorders (2 sources) Pain in left shoulder; Translations: [Pain in left shoulder] Onset: 07-31-2023 Episodic Other non-traumatic joint disorders (2 sources) Pain in right knee; Translations: [Pain in right knee] Onset: 07-31-2023 Episodic Other screening for suspected conditions (not mental disorders or infectious disease) (20 sources) Raised prostate specific antigen; Translations: [Elevated prostate specific antigen [PSA]] Onset: 02-24-2019 02-24-2019 Episodic Pancreatic disorders (not diabetes) (6 sources) Cyst of pancreas; Translations: [Other specified diseases of pancreas] Onset: 06-14-2023 Episodic Residual codes; unclassified (2 sources) Other specified postprocedural states; Translations: [Other specified postprocedural states] Onset: 07-31-2023 Episodic Rheumatoid arthritis and related disease (3 sources) Ankylosing spondylitis; Translations: [Ankylosing spondylitis of unspecified sites in spine] Onset: 07-31-2023 07-31-2023 Chronic Spondylosis; intervertebral disc disorders; other back problems (20 sources) Degeneration of lumbar intervertebral disc; Translations: [Other intervertebral disc degeneration, lumbar region] Onset: 07-31-2023 07-31-2023 Chronic Spondylosis; intervertebral disc disorders; other back problems (20 sources) Neck pain; Translations: [Cervicalgia] Onset: 07-31-2023 07-31-2023 Episodic Past or Other Problems Problem Classification Problem Date Documented Date Episodic/Chronic Blindness and vision defects (20 sources) Regular astigmatism; Translations: [Regular astigmatism, unspecified eye] Onset: 12-10-2014 12-10-2014 Episodic Fracture of upper limb (13 sources) Closed fracture finger middle phalanx; Translations: [Closed fracture of middle or proximal phalanx of finger of left hand] Onset: 06-30-2013 06-30-2013 Episodic Genitourinary symptoms and ill-defined conditions (10 sources) Stefano hematuria; Translations: [Gross hematuria] Onset: 04-04-2021 Episodic Other and unspecified benign neoplasm (14 sources) Benign tumor of eyelid; Translations: [Other benign neoplasm of skin of unspecified eyelid, including canthus] Onset: 04-03-2017 04-03-2017 Episodic Other connective tissue disease (13 sources) Right achilles tendonitis; Translations: [Achilles tendinitis, right leg] Onset: 11-08-2016 11-08-2016 Episodic Other connective tissue disease (10 sources) H/O: rheumatoid arthritis; Translations: [Personal history of other diseases of the musculoskeletal system and connective tissue] Onset: 07-31-2023 Resolved: 08-22-2023 07-31-2023 Episodic Results Test Name Value Interpretation Reference Range Facil ity Vital Signs Date Time Vital Sign Value Performing Clinician Facility 10-08-2023 15:16-0500 Body height 175.3 cm Cole Hamilton Jr., DO Work Phone: [facility] 10-08-2023 15:16-0500 Body mass index (BMI) [Ratio] 28.39 kg/m2 Cole Hamilton Jr., DO Work Phone: [facility] 10-08-2023 15:16-0500 Body temperature 97.81 [degF] Cole Hamilton Jr., DO Work Phone: [facility] 10-08-2023 15:16-0500 Body weight 87.2 kg Cole Hamilton Jr., DO Work Phone: [facility] 10-08-2023 15:16-0500 Diastolic blood pressure 58 mm[Hg] Cole Hamilton Jr., DO Work Phone: [facility] 10-08-2023 15:16-0500 Heart rate 72 /min Cole Hamilton Jr., DO Work Phone: [facility] 10-08-2023 15:16-0500 SaO2% (BldA) [Mass fraction] 97 % Cole Hamilton Jr., DO Work Phone: [facility] 10-08-2023 15:16-0500 Systolic blood pressure 118 mm[Hg] Cole Hamilton Jr., DO Work Phone: [facility] 08-22-2023 14:48-0500 Body height 175.3 cm Cole Archanamaria a Bryant, DO Work Phone: [facility] 08-22-2023 14:48-0500 Body mass index (BMI) [Ratio] 28.39 kg/m2 Cole Magañamaria a Chin, DO Work Phone: [facility] 08-22-2023 14:48-0500 Body temperature 98.71 [degF] Cole Hamilton Jr., DO Work Phone: [facility] 08-22-2023 14:48-0500 Body weight 87.2 kg Cole Archanamaria a Bryant, DO Work Phone: [facility] 08-22-2023 14:48-0500 Diastolic blood pressure 64 mm[Hg] Cole Hamilton Jr., DO Work Phone: [facility] 08-22-2023 14:48-0500 SaO2% (BldA) [Mass fraction] 96 % Cole Hamilton Jr., DO Work Phone: [facility] 08-22-2023 14:48-0500 Systolic blood pressure 132 mm[Hg] Cole Hamilton Jr., DO Work Phone: [facility] 08-17-2023 14:15-0500 Body height 175.3 cm Ruth Antony MD Work Phone: [facility] 08-17-2023 14:15-0500 Body temperature 97.2 [degF] Ruth Antony MD Work Phone: [facility] 08-17-2023 14:15-0500 Body weight 88 kg Ruth Antony MD Work Phone: [facility] 08-17-2023 14:15-0500 Diastolic blood pressure 74 mm[Hg] Ruth Antony MD Work Phone: [facility] 08-17-2023 14:15-0500 Heart rate 68 /min Ruth Antony MD Work Phone: [facility] 08-17-2023 14:15-0500 SaO2% (BldA) [Mass fraction] 98 % Ruth Antony MD Work Phone: [facility] 08-17-2023 14:15-0500 Systolic blood pressure 130 mm[Hg] Ruth Antony MD Work Phone: [facility] 07-31-2023 07:28-0500 Body height 175.3 cm Cole Hamilton Jr., DO Work Phone: [facility] 07-31-2023 07:28-0500 Body mass index (BMI) [Ratio] 28.38 kg/m2 Cole Hamilton Jr., DO Work Phone: [facility] 07-31-2023 07:28-0500 Body temperature 98.71 [degF] Cole Hamilton Jr., DO Work Phone: [facility] 07-31-2023 07:28-0500 Body weight 87.18 kg Cole Hamilton Jr., DO Work Phone: [facility] 07-31-2023 07:28-0500 Diastolic blood pressure 68 mm[Hg] Cole Hamilton Jr., DO Work Phone: [facility] 07-31-2023 07:28-0500 Heart rate 65 /min Cole Hamilton Jr., DO Work Phone: [facility] 07-31-2023 07:28-0500 SaO2% (BldA) [Mass fraction] 99 % Cole Hamilton Jr., DO Work Phone: [facility] 07-31-2023 07:28-0500 Systolic blood pressure 120 mm[Hg] Cole Hamilton Jr., DO Work Phone: [facility] 04-13-2023 14:32-0400 Body temperature 98.71 [degF] Boy Newman MD Work Phone: [facility] 04-13-2023 14:32-0400 Diastolic blood pressure 66 mm[Hg] Boy Newman MD Work Phone: [facility] 04-13-2023 14:32-0400 Heart rate 62 /min Boy Newman MD Work Phone: [facility] 04-13-2023 14:32-0400 Respiratory rate 16 /min Boy Newman MD Work Phone: [facility] 04-13-2023 14:32-0400 SaO2% (BldA) [Mass fraction] 98 % Boy Newman MD Work Phone: [facility] 04-13-2023 14:32-0400 Systolic blood pressure 113 mm[Hg] Boy Newman MD Work Phone: [facility] 11-07-2022 12:42-0400 Diastolic blood pressure 80 mm[Hg] Cinthya Barbour MD Work Phone: [facility] 11-07-2022 12:42-0400 Heart rate 75 /min Cinthya Barbour MD Work Phone: [facility] 11-07-2022 12:42-0400 Systolic blood pressure 145 mm[Hg] Cinthya Barbour MD Work Phone: [facility] 11-07-2022 12:39-0400 Body height 175.3 cm Cinthya Barbour MD Work Phone: [facility] 11-07-2022 12:39-0400 Body mass index (BMI) [Ratio] 28.97 kg/m2 Cinthya Barbour MD Work Phone: [facility] 11-07-2022 12:39-0400 Body weight 89 kg Cinthya Barbour MD Work Phone: [facility] 10-06-2022 14:38-0500 Body height 175.3 cm Boy Newman MD Work Phone: [facility] 10-06-2022 14:38-0500 Body mass index (BMI) [Ratio] 28.06 kg/m2 Boy Newman MD Work Phone: [facility] 10-06-2022 14:38-0500 Body temperature 98.4 [degF] Boy Newman MD Work Phone: [facility] 10-06-2022 14:38-0500 Body weight 86.18 kg Boy Newman MD Work Phone: [facility] 10-06-2022 14:38-0500 Diastolic blood pressure 72 mm[Hg] Boy Newman MD Work Phone: [facility] 10-06-2022 14:38-0500 Heart rate 73 /min Boy Newman MD Work Phone: [facility] 10-06-2022 14:38-0500 Respiratory rate 18 /min Boy Newman MD Work Phone: [facility] 10-06-2022 14:38-0500 SaO2% (BldA) [Mass fraction] 97 % Boy Newman MD Work Phone: [facility] 10-06-2022 14:38-0500 Systolic blood pressure 130 mm[Hg] Boy Newman MD Work Phone: [facility] 01-31-2022 13:38-0400 Diastolic blood pressure 78 mm[Hg] Cinthya Barbour MD Work Phone: [facility] 01-31-2022 13:38-0400 Heart rate 65 /min Cinthya Barbour MD Work Phone: [facility] 01-31-2022 13:38-0400 Systolic blood pressure 129 mm[Hg] Cinthya Barbour MD Work Phone: [facility] 01-31-2022 13:32-0400 Body height 175.3 cm Cinthya Barbour MD Work Phone: [facility] 01-31-2022 13:32-0400 Body mass index (BMI) [Ratio] 27.02 kg/m2 Cinthya Barbour MD Work Phone: [facility] 01-31-2022 13:32-0400 Body weight 83.01 kg Cinthya Barbour MD Work Phone: [facility] 04-29-2021 10:57-0400 Body temperature 98.2 [degF] Boy Newman MD Work Phone: [facility] 04-29-2021 10:57-0400 Diastolic blood pressure 74 mm[Hg] Boy Newman MD Work Phone: [facility] 04-29-2021 10:57-0400 Heart rate 63 /min Boy Newman MD Work Phone: [facility] 04-29-2021 10:57-0400 Systolic blood pressure 134 mm[Hg] Boy Newman MD Work Phone: [facility] 04-19-2021 15:00-0400 Diastolic blood pressure 79 mm[Hg] Yash Becka DO Work Phone: [facility] 04-19-2021 15:00-0400 Heart rate 70 /min Yash Becka DO Work Phone: [facility] 04-19-2021 15:00-0400 Systolic blood pressure 152 mm[Hg] Yash Becka DO Work Phone: [facility] 04-19-2021 14:57-0400 Body height 175.3 cm Yash Becka DO Work Phone: [facility] 04-19-2021 14:57-0400 Body mass index (BMI) [Ratio] 28.06 kg/m2 Yash Becka DO Work Phone: [facility] 04-19-2021 14:57-0400 Body weight 86.18 kg Yash Becka DO Work Phone: [facility] 04-04-2021 13:31-0400 Body height 175.3 cm Boy Newman MD Work [facility] [facility] 04-04-2021 13:31-0400 Body mass index (BMI) [Ratio] 28.35 kg/m2 Boy Newman MD Work Phone: [facility] 04-04-2021 13:31-0400 Body weight 87.09 kg Boy Newman MD Work Phone: [facility] 04-04-2021 13:31-0400 Diastolic blood pressure 72 mm[Hg] Boy Newman MD Work Phone: [facility] 04-04-2021 13:31-0400 Heart rate 74 /min Boy Newman MD Work Phone: [facility] 04-04-2021 13:31-0400 Systolic blood pressure 147 mm[Hg] Boy Newman MD Work Phone: [facility] 01-17-2021 11:38-0400 Diastolic blood pressure 77 mm[Hg] Cinthya Barbour MD Work Phone: [facility] 01-17-2021 11:38-0400 Heart rate 52 /min Cinthya Barbour MD Work Phone: [facility] 01-17-2021 11:38-0400 Systolic blood pressure 152 mm[Hg] Cinthya Barbour MD Work Phone: [facility] 01-17-2021 11:37-0400 Body height 175.3 cm Cinthya Barbour MD Work Phone: [facility] 01-17-2021 11:37-0400 Body mass index (BMI) [Ratio] 28.35 kg/m2 Cinthya Barbour MD Work Phone: [facility] 01-17-2021 11:37-0400 Body weight 87.09 kg Cinthya Barbour MD Work Phone: [facility] 02-24-2019 14:41-0400 BMI (Body Mass Index) 26.54 kg/m2 Boy Newman [facility] 02-24-2019 14:41-0400 Body weight 83.92 kg Boy Newman [facility] 02-24-2019 14:41-0400 BP Diastolic 59 mm[Hg] Boy Newman [facility] 02-24-2019 14:41-0400 BP Systolic 108 mm[Hg] Boy [facility] 02-24-2019 14:41-0400 Height 177.8 cm [facility] 02-24-2019 14:41-0400 Pulse (Heart Rate) 71 /min [facility] Encounters Encounter Date Encounter Type Care Provider Facility Start: 10-08-2023 ambulatory [facility] Start: 10-08-2023 End: 10-08-2023 Office outpatient visit 10 minutes Cole Hamilton DO Work Phone: [facility] Procedures Date Procedure Procedure Detail Performing Clinician Start: 07-31-2023 History of decompression of median nerve History of bilateral carpal tunnel release Cole Hamilton DO Work Phone: Start: 07-31-2023 End: 07-31-2023 Radex shoulder complete minimum 2 views Cole Hamilton DO Work Phone: Start: 04-13-2023 Follow-up visit Follow-up BOY COLE NEWMAN Start: 04-05-2023 End: 04-05-2023 Visual field xm uni/bi w/interp extended exam Flores Story OD Work Phone: Start: 02-08-2023 PFIZER-BIONTECH COVID-19 BIVALENT VACCINE, AGE 12+ YR Price Anglin MD Work Phone: Start: 11-07-2022 Ecg routine ecg w/least 12 lds w/i&r Cinthya Barbour MD Work Phone: Start: 08-23-2022 Microalbumin [Mass/volume] in Urine by Test strip Boy Newman MD Work Phone: Start: 06-06-2022 P[employer]ER-BIONTECH COVID-19 BIVALENT BOOSTER VACCINE, AGE 12+ YR Price Anglin MD Work Phone: Start: 05-27-2022 INFLUENZA SEASONAL QUADRIVALENT HIGH DOSE AGE 65+ Dejon Larkin MD Work Phone: Start: 01-31-2022 Ecg routine ecg w/least 12 lds w/i&r Cinthya Barbour MD Work Phone: Start: 01-05-2022 [employer] COVID-19 VACCINE, AGE 12+ YR ([facility]ON TOP) Peterson Gómez MD Work Phone: Start: 10-24-2021 Arthrocentesis aspir&/inj major jt/bursa w/o us Junior Cadet MD Work Phone: Start: 10-24-2021 Radiologic exam knee complete 4/more views Junior Cadet MD Work Phone: Start: 04-19-2021 Ecg routine ecg w/least 12 lds w/i&r Yash Jovel DO Work Phone: Start: 01-17-2021 Ecg routine ecg w/least 12 lds w/i&r Cinthya Barbour MD Work Phone: Start: 11-19-2020 Microalbumin [Mass/volume] in Urine by Test strip Boy Newman MD Work Phone: History of decompres natalie of median nerve History of bilateral carpal tunnel release Cole Hamilton DO Work Phone: History of decompres natalie of median nerve History of bilateral carpal tunnel release Cole Hamilton DO Work Phone: Plan of Treatment Date Care Activity Detail Author Start: 11-30-2031 Tetanus vaccination [facility] Start: 01-28-2025 OCT OPTIC NERVE CIRR US OU (BOTH EYES) OCT OPTIC NERVE CIRRUS OU (BOTH EYES) OPHT Imaging Routine Glaucoma suspect of both eyes Expected: 01/28/2025 [facility] Work Phone: Immunizations Immunization Date Immunization Notes Care Provider Giovanny pete 06-09-2023 influenza (HD-IIV4) vaccine, age 65+ yr, high dose, quadrivalent, PF (FLUZONE HIGH-DOSE) Ruth Antony MD Work Phone: [facility] 05-30-2023 COVID-19 vaccine, ag e 12+ yr, season (PFIZER-BIONTECH) Ruth Antony MD Work Phone: [facility] 02-08-2023 COVID-19 vaccine, ag e 12+ yr, bivalent (PFIZER-BIONTECH) Flores Story II, OD Work Phone: [facility] Work Phone: 06-06-2022 COVID-19 booster vaccine, age 12+ yr, bivalent (PFIZER-BIONTECH) Tn Nurse Work Phone: [facility] Work Phone: 05-27-2022 influenza, high-dose , quadrivalent vaccine (FLUZONE HIGH DOSE QUADRIVALENT) Immunization [place] Work Phone: [facility] 01-05-2022 COVID-19 vaccine, ag e 12+ yr (PFIZER-BIONTECH - [facility]) Tn Nurse Work Phone: [facility] Work Phone: 02-28-2011 pneumococcal polysaccharide vaccine, 23 valent Tn Nurse Work Phone: [facility] 05-06-2006 pneumococcal conjuga te vaccine, 7 valent Junior Cadet MD Work Phone: [facility] Payers Date Payer Category Payer Medicare AETNA MEDICARE A ETNA MEDICARE PPO [id number] 2021-Present [phone] [address] [place] [address] O [id number] 2018 Medicare AETNA MANAGED ME DICARE AETNA MEDICARE PLAN (PPO) [id number] 2018-Present [id number] 2018 Medicare [id number] 2018 Medicare [id number] 2018 Medicare [id number] 2018 Medicare [id number] 2017 Private Health Insurance 1935 Unknown [id number] [id number] 02 1936 Unknown [id number] 2.16.840.1.947527.3.579.2.9 02 1936 Unknown [id number] 2.16.840.1.406761.3.579.2.9 00 1936 Unknown [id number] 2.16.840.1.821360.3.579.2.9 03 1936 Unknown [id number] 2..840.1.376284.3.579.2.9 03 1936 Unknown [id number] 2..840.1.194483.3.579.2.9 03 1936 Unknown [id number] 2.16.840.1.106137.3.579.2.9 03 1936 Unknown [id number] 2.16.840.1.367440.3.579.2.1 260 1936 Unknown [id number] 2.16.840.1.856432.3.579.2.1 260 1936 Unknown [id number] 2.16.840.1.618194.3.579.2.1 260 1936 Unknown [id number] 2.16.840.1.247732.3.579.2.1 260 1936 Unknown [id number] 2.16.840.1.373320.3.579.2.9 83 1936 Unknown [id number] 2.16.840.1.702441.3.579.2.9 83 1936 Unknown [id number] 2.16.840.1.388342.3.579.2.9 83 1936 Unknown [id number] 2.16.840.1.449436.3.579.2.9 83 1936 Unknown [id number] 2.16.840.1.577371.3.579.2.9 83 1936 Unknown [id number] 2.16.840.1.359186.3.579.2.9 83 1936 Unknown [id number] 2.16.840.1.251287.3.579.2.9 83 1936 Unknown [id number] 2.16.840.1.230229.3.579.2.9 83 1936 Unknown [id number] 2.16.840.1.314823.3.579.2.9 83 1936 Unknown [id number] 2.16.840.1.114791.3.579.2.9 83 1936 Unknown [id number] 2.16.840.1.292660.3.579.2.9 83 Social History Date Type Detail Facility Start: 02-24-2019 End: 07-31-2023 Tobacco smoking status KSIS Never smoker [facility] Start: 1935 Sex Assigned At Not on file [facility] Start: 02-24-2019 End: 04-13-2023 Alcohol intake Ex-drinker (finding) [facility] Start: 08-02-2020 End: 07-31-2023 Tobacco use and exposure Never used [facility] Start: 10-14-2021 End: 10-06-2022 Exposure to SARS-CoV-2 (event) Not sure [facility] Start: 10-24-2021 End: 08-19-2023 Alcohol intake Current non-drinker of alcohol (finding) [facility] Start: 1935 Sex Assigned At Male [facility] Start: 02-24-2019 End: 08-22-2023 Cigarette pack-years [facility] Start: 10-06-2022 End: 08-22-2023 Tobacco use panel [facility] Start: 12-04-2019 Gender identity Identifies as male gender (finding) [facility] Start: 12-04-2019 Sexual orientation Heterosexual (jesus alberto nata) [facility] National Score (1-10 0), lower number is lower risk 76 [facility] Medical Equipment Procedure Code Equipment Code Equipment Origin al Text Equipment Identifier Dates USE LANCET TO CH DIONY GLUCOSE ONCE DAILY DIRECTED [id number] Start: 12-24-2019 USE STRIP TO YA CK GLUCOSE ONCE DAILY DIRECTED [id number] Start: 12-24-2019 Clinical Notes 01-17-2021 to 10-08-2023 Cole Hamilton Jr., DO - 10/08/2023 3:30 PM ESTTelephone Encounter - Gena MalhotraGEOFF - 10/04/2023 10:10 AM Sal Hamilton Jr., DO - 08/22/2023 3:00 PM ESTPatient Instructions Note Date & Type Note Facility 10-08-2023 History of Present illness Narrative Subjective History of Present Illness: Presence of Pain: denies pain/discomfort. Total time spent in this encounter was 18 minutes. All questions answered for the patient and . BPH is doing all right. Joint pain is is some always yes but nothing he can not work through at this point. Patient is here for Follow-up after DEXA. Patient states is doing pretty good since last visit. Objective Review of Systems Constitutional: Negative. HENT: Negative. Eyes: Negative. Respiratory: Negative. Cardiovascular: Negative. Gastrointestinal: Negative. Endocrine: Negative. Genitourinary: BPH Musculoskeletal: Positive for arthralgias. Skin: Negative. Allergic/Immunologic: Negative. Neurological: Negative. Hematological: Negative. Psychiatric/Behavioral: Negative. Vitals: Blood pressure 118/58, pulse 72, temperature 97.8 F (36.6 C), temperature source Temporal, height 1.753 m (5' 9 ), weight 87.2 kg (192 lb 3.9 oz), SpO2 97%. Physical Exam Vitals and nursing note reviewed. Constitutional: Appearance: Normal appearance. HENT: Head: Normocephalic and atraumatic. Right Ear: External ear normal. Left Ear: External ear normal. Nose: Nose normal. Mouth/Throat: Mouth: Mucous membranes are dry. Pharynx: Oropharynx is clear. Eyes: Extraocular Movements: Extraocular movements intact. Conjunctiva/sclera: Conjunctivae normal. Pupils: Pupils are equal, round, and reactive to light. Comments: glasses Cardiovascular: Rate and Rhythm: Normal rate and regular rhythm. Pulses: Radial pulses are 2+ on the right side and 2+ on the left side. Heart sounds: Normal heart sounds. Pulmonary: Effort: Pulmonary effort is normal. Breath sounds: Normal breath sounds. Abdominal: General: Bowel sounds are normal. Palpations: Abdomen is soft. Musculoskeletal: Right shoulder: Decreased range of motion. Left shoulder: Decreased range of motion. Right upper arm: Normal. Left upper arm: Normal. Right elbow: Normal. Left elbow: Normal. Right forearm: Normal. Left forearm: Normal. Right wrist: Decreased range of motion. Left wrist: Decreased range of motion. Right hand: Deformity present. Decreased range of motion. Decreased strength. Left hand: Deformity present. Decreased range of motion. Decreased strength. Cervical back: Neck supple. Right upper leg: Normal. Left upper leg: Normal. Right knee: Decreased range of motion. Left knee: Decreased range of motion. Right lower le+ Edema present. Left lower le+ Edema present. Right ankle: Decreased range of motion. Left ankle: Decreased range of motion. Comments: Increased kyphosis Skin: General: Skin is warm and dry. Neurological: Mental Status: He is alert and oriented to person, place, and time. Cranial Nerves: Cranial nerves 2-12 are intact. Sensory: Sensation is intact. Motor: Weakness present. Gait: Gait abnormal. 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 Behavior: Behavior normal. Thought Content: Thought content normal. Judgment: Judgment normal. Neurological Exam Mental Status Alert. Oriented to person, place, and time. Cranial Nerves CN II: Vision test: glasses. CN III, IV, : Extraocular movements intact bilaterally. Pupils equal round and reactive to light bilaterally. Sensory Normal sensation. Gait Abnormal gait. 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 Assessment and Plan; No evidence of active CTD/CVD/inflammatory arthritis/RA Patient can Follow-up with me on a PRN basis I return patient to your care. Encounter Diagnoses Name Primary? 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 A complete H&P&ROS was obtained and is either in this note or in the EHR. Please do not hesitate to contact me with any questions or concerns re: this patient. Past History: Past medical, surgical, family, and social histories have been reviewed and updated with the patient today and are located elsewhere in the medical record. Patient can Follow-up with me on a PRN basis Negative Hep A&B&C serology, Lyme, MIKAEL, CCP, RF, ANCA, HLA-B27, Celiac, SPEP/SIF Testosterone was elevated at 839 due to finesteride Uric acid was normal at 6.0 Vit D under care of PCP Patient is taking Diovan Patient is taking Tylenol PRN. Patient declines stronger pain medication. Rx given for PT: patient has been as is doing HEP and declines another trip. Rx given for OT: Patient has been and is doing HEP and declines another trip ESR was normal at 12. Glucose was elevated at 116 and patient is going to Follow-up with PCP CRP was negative at < 5.0 X-rays of knees show OA DEXA 08/30/2023: young adult T-score L-spine + 1.7. Total L hip is minus 1.1. L femoral neck minus 1.4. Patient declines referral to Ortho as he has seen one and does not feel that he needs knee replacement Repeat DEXA on or about 08/31/2025 I return patient to your care Patient declines referral to hand surgeon (times 2) Methotrexate did not help Arava stopped as caused side effect. BUN was elevated at 27. CO2 was elevated at 31 KUSUM level was normal at 72 Patient declines referral to chronic pain management Patient declines referral to ortho for shoulders No evidence of active CTD/CVD/inflammatory arthritis/RA documented in this encounter [facility] 10-04-[address] CT scan Images from June 11, 2023 are in EPIC for your review. Gena Malhotra LPN October 04, 2023 10:25 AM documented in this encounter [facility] 08-22-2023 History of Present illness Narrative Subjective History of Present Illness: Presence of Pain: complains of pain/discomfort Select Pain Scale: DVPRS (Defense and Veterans Pain Rating Scale) (Adult-Cognitively Intact) DVPRS: Rest: 5- moderate pain Select Pain Scale: DVPRS (Defense and Veterans Pain Rating Scale) (Adult-Cognitively Intact). Total time spent in this encounter was 40 minutes. Energy level is good. BPH is doing all right. Weakness is no. Joint pain is fingers mostly. Back pain is nothing. No not really. Neck pain is no. Patient is here for 2 week Follow-up. Patient states feels about the same since last visit. States his fingers do not move like he wants them too. Objective Review of Systems Constitutional: Negative. HENT: Negative. Eyes: Negative. Respiratory: Negative. Cardiovascular: Negative. Gastrointestinal: Negative. Endocrine: Negative. Genitourinary: BPH Musculoskeletal: Positive for arthralgias. Skin: Negative. Allergic/Immunologic: Negative. Neurological: Negative. Hematological: Negative. Psychiatric/Behavioral: Negative. Vitals: Blood pressure 132/64, temperature 98.7 F (37.1 C), temperature source Temporal, height 1.753 m (5' 9 ), weight 87.2 kg (192 lb 3.9 oz), SpO2 96 %. Physical Exam Vitals and nursing note reviewed. Constitutional: Appearance: Normal appearance. HENT: Head: Normocephalic and atraumatic. Right Ear: External ear normal. Left Ear: External ear normal. Nose: Nose normal. Mouth/Throat: Mouth: Mucous membranes are dry. Pharynx: Oropharynx is clear. Eyes: Extraocular Movements: Extraocular movements intact. Conjunctiva/sclera: Conjunctivae normal. Pupils: Pupils are equal, round, and reactive to light. Comments: glasses Cardiovascular: Rate and Rhythm: Normal rate and regular rhythm. Pulses: Radial pulses are 2+ on the right side and 2+ on the left side. Heart sounds: Normal heart sounds. Pulmonary: Effort: Pulmonary effort is normal. Breath sounds: Normal breath sounds. Abdominal: General: Bowel sounds are normal. Palpations: Abdomen is soft. Musculoskeletal: Right shoulder: Tenderness present. Decreased range of motion. Left shoulder: Tenderness present. Decreased range of motion. Right upper arm: Tenderness present. Left upper arm: Tenderness present. Right elbow: Normal. Left elbow: Normal. Right forearm: Normal. Left forearm: Normal. Right wrist: Tenderness and bony tenderness present. Decreased range of motion. Left wrist: Tenderness and bony tenderness present. Decreased range of motion. Right hand: Deformity, tenderness and bony tenderness present. Decreased range of motion. Decreased strength. Left hand: Deformity, tenderness and bony tenderness present. Decreased range of motion. Decreased strength. Cervical back: Neck supple. Right upper leg: Normal. Left upper leg: Normal. Right knee: Decreased range of motion. Tenderness present. Left knee: Decreased range of motion. Tenderness present. Right lower le+ Edema present. Left lower le+ Edema present. Right ankle: Decreased range of motion. Left ankle: Decreased range of motion. Comments: Increased kyphosis Skin: General: Skin is warm and dry. Neurological: Mental Status: He is alert and oriented to person, place, and time. Cranial Nerves: Cranial nerves 2-12 are intact. Sensory: Sensation is intact. Motor: Weakness present. Gait: Gait abnormal. 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 Behavior: Behavior normal. Thought Content: Thought content normal. Judgment: Judgment normal. Neurological Exam Mental Status Alert. Oriented to person, place, and time. Cranial Nerves CN II: Vision test: glasses. CN III, IV, : Extraocular movements intact bilaterally. Pupils equal round and reactive to light bilaterally. Sensory Normal sensation. Gait Abnormal gait. 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 Assessment and Plan; No evidence of active CTD/CVD/inflammatory arthritis/RA Encounter Diagnoses Name Primary? 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 Osteoarthritis of carpometacarpal (CMC) joint of both thumbs Osteoarthritis of both glenohumeral joints Osteoarthritis of AC (acromioclavicular) joints, bilateral Lumbar degenerative disc disease Impingement syndrome of both shoulders DDD (degenerative disc disease), cervical Chronic pain of both wrists Calcific tendonitis of right shoulder On statin therapy 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 A complete H&P&ROS was obtained and is either in this note or in the EHR. Please do not hesitate to contact me with any questions or concerns re: this patient. Past History: Past medical, surgical, family, and social histories have been reviewed and updated with the patient today and are located elsewhere in the medical record. Thank you for allowing me to participate in the care of your patient. With your permission I would like to F/U with your patient. Negative Hep A&B&C serology, Lyme, MIKAEL, CCP, RF, ANCA, HLA-B27, Celiac, SPEP/SIF Testosterone is elevated at 839 due to finesteride Uric acid is normal at 6.0 Vit D under care of PCP Patient is taking Diovan Patient is taking Tylenol PRN. Patient declines stronger pain medication. Rx given for PT: patient has been as is doing HEP and declines another trip. Rx given for OT: Patient has been and is doing HEP and declines another trip ESR was normal at 6 and still is at 12. Glucose is elevated at 116 and patient is going to Follow-up with PCP CRP was negative at < 4.0 and still is at < 5.0 X-rays of knees show OA If knee and shoulder and wrist and hand problems continue rec: ortho eval Patient declines referral to Ortho as he has seen one and does not feel that he needs knee replacement If patient continues to have trouble with back pain would rec: eval by spinal surgery and/or chronic pain management If neck pain continues rec: eval by spinal surgery and/or chronic pain management Patient declines referral to hand surgeon (times 2) Methotrexate did not help Arava stopped as caused side effect. BUN is elevated at 27. CO2 is elevated at 31 KUSUM level is normal at 72 Patient declines referral to chronic pain management Patient declines referral to ortho for shoulders DEXA Follow-up with me 2 weeks after DEXA No evidence of active CTD/CVD/inflammatory arthritis/RA documented in this encounter [facility] 08-19-2023 Note HNO ID: [id number] Author: RUTH ANTONY MD Service: ? Author Type: Physician Type: Progress Notes Filed: 08/19/2023 13:11 Note Text: HISTORY AND PHYSICAL Jaye Maya 1935 REFERRING PHYSICIAN: No ref. provider found CHIEF COMPLAINT: Consult (Lesion on kidney, pancreas) HPI: The patient is a 88 year old male with an incidental finding of pancreatic cyst. The patient had a workup for abdominal pain that began 6 months previously. He noted symptoms after eating. Without more specific symptoms a CT scan of the abdomen pelvis with CT angiogram to assess for possible intestinal angina was obtained with plans to refer to GI. CT scan was obtained on May 25, 2023 which demonstrated: 1. No CTA findings of abdominal aortic aneurysm or significant stenosis identified. 2. Colonic diverticulosis without overt CT findings of acute diverticulitis associated. 3. A 0.8 x 1.0 cm complex nodular lesion at the posterior interpolar right kidney and an additional mild the complex 1.1 cm lesion anteriorly at the interpolar left kidney, indeterminate. While these could represent benign complex cystic lesions, further characterization with renal mass protocol MRI is recommended, as an enhancing lesion cannot be excluded. 4. Prostate enlargement. MRI was recommended. Abdominal MRI was obtained on June 11, 2023. This demonstrated: 1. A 0.9 x 1.0 cm benign proteinaceous/hemorrhagic cyst at the posterior interpolar right kidney and an additional 1.3 x 1.0 cm benign cystic lesion at the anterior interpolar left kidney, which correspond with the questioned indeterminate lesions on the 05/25/2023 CTA examination. No suspicious renal mass identified. 2. Several cystic lesions within the pancreas including a 9 mm cystic lesion at the pancreatic body. This is associated with mild pancreatic duct dilatation measuring up to 6 mm diameter. Although likely of benign etiology, consider a follow-up examination in 2 years to confirm stability. I do not have images for this MRI and would like clarification of whether this cystic lesion has solid or pure cystic components and whether this seems to be a main duct or sidebranch IPMN. Incidental MRIThe patient is being seen by me today at the request of Dr. Hugo Cunningham MD, MD for my opinion and advice regarding an incidental MRI finding within the pancreas. PAST MEDICAL HISTORY Diagnosis Date Arthritis Back disorder Benign neoplasm of colon Coronary artery disease diabetes pre diabetic Diverticulosis Enlarged prostate Heart disease Myopia Rheumatoid arthritis (HCC) Unspecified essential hypertension Essential hypertension PAST SURGICAL HISTORY Procedure Laterality Date COLONOSCOPY FLX DX W/COLLJ SPEC WHEN PFRMD 03/10/2011 Colonoscopy COLONOSCOPY FLX DX W/COLLJ SPEC WHEN PFRMD 07/05/2021 ESOPHAGOGASTRODUODENOSCOPY TRANSORAL DIAGNOSTIC 07/05/2021 HERNIA REPAIR HX x2 PAST SURGICAL HISTORY OF 12/2008 Heart stent PAST SURGICAL HISTORY OF skin graft left 4th finger PAST SURGICAL HISTORY OF left thumb PAST SURGICAL HISTORY OF Bilateral cataract surgery done by Dr Cha @ [facility] 12/28/22 OD 01/11/23 TONSILLECTOMY HX TONSILLECTOMY PRIMARY/SECONDARY Tonsillectomy alone Current Outpatient Medications Medication Sig valsartan (DIOVAN) 160 mg tablet Take 160 mg by mouth once daily. omeprazole (PRILOSEC) 20 mg capsule Take 2 capsules by mouth once daily. (Patient taking differently: Take 40 mg by mouth once daily. Takes 1 tablet twice a week) finasteride (PROSCAR) 5 mg tablet Take 5 mg by mouth. ezetimibe (ZETIA) 10 mg tablet Take 10 mg by mouth once daily. atorvastatin (LIPITOR) 80 mg tablet Take 80 mg by mouth once daily. hydroCHLOROthiazide (HYDRODIURIL, ESIDRIX) 50 mg tablet Take 50 mg by mouth once daily. Cholecalciferol, Vitamin D3, 50 mcg (2,000 unit) cap Take by mouth. metoprolol succinate ER (TOPROL XL) 50 mg 24 hr tablet Take 25 mg by mouth once daily. Potassium Chloride (SLOW-K) 8 mEq tablet Take 8 mEq by mouth once daily. ASPIRIN (ASPIR-81 ORAL) Take 1 tablet by mouth once daily. MULTI-VITAMIN ORAL Take 1 tablet by mouth once daily. leflunomide (ARAVA) 10 mg tablet Take 10 mg by mouth every other day. [id number] 1-0.5-0.075 % drps Use 1 Drop in eyes twice daily. Right eye (Patient not taking: Reported on 04/05/2023) simvastatin 40 mg ORAL tablet Take 40 mg by mouth daily at bedtime. (Patient not taking: Reported on 08/17/2023) No current facility-administered medications for this visit. ALLERGIES: Patient has no known allergies. PERSONAL HISTORY: Social History Tobacco Use Smoking status: Never Smokeless tobacco: Never Vaping Use Vaping Use: Never used Substance Use Topics Alcohol use: No Drug use: No FAMILY HISTORY: FAMILY HISTORY Problem Relation Age of Onset Hypertension Mother Hypertension Father other (bladder cancer) Sis (more content not included)... [facility] 08-19-2023 History of Present illness Narrative HISTORY AND PHYSICAL Jaye Maya 1935 REFERRING PHYSICIAN: No ref. provider found CHIEF COMPLAINT: Consult (Lesion on kidney, pancreas) HPI: The patient is a 88 year old male with an incidental finding of pancreatic cyst. The patient had a workup for abdominal pain that began 6 months previously. He noted symptoms after eating. Without more specific symptoms a CT scan of the abdomen pelvis with CT angiogram to assess for possible intestinal angina was obtained with plans to refer to GI. CT scan was obtained on May 25, 2023 which demonstrated: 1. No CTA findings of abdominal aortic aneurysm or significant stenosis identified. 2. Colonic diverticulosis without overt CT findings of acute diverticulitis associated. 3. A 0.8 x 1.0 cm complex nodular lesion at the posterior interpolar right kidney and an additional mild the complex 1.1 cm lesion anteriorly at the interpolar left kidney, indeterminate. While these could represent benign complex cystic lesions, further characterization with renal mass protocol MRI is recommended, as an enhancing lesion cannot be excluded. 4. Prostate enlargement. MRI was recommended. Abdominal MRI was obtained on June 11, 2023. This demonstrated: 1. A 0.9 x 1.0 cm benign proteinaceous/hemorrhagic cyst at the posterior interpolar right kidney and an additional 1.3 x 1.0 cm benign cystic lesion at the anterior interpolar left kidney, which correspond with the questioned indeterminate lesions on the 05/25/2023 CTA examination. No suspicious renal mass identified. 2. Several cystic lesions within the pancreas including a 9 mm cystic lesion at the pancreatic body. This is associated with mild pancreatic duct dilatation measuring up to 6 mm diameter. Although likely of benign etiology, consider a follow-up examination in 2 years to confirm stability. I do not have images for this MRI and would like clarification of whether this cystic lesion has solid or pure cystic components and whether this seems to be a main duct or sidebranch IPMN. Incidental MRIThe patient is being seen by me today at the request of Dr. Hugo Cunningham MD, MD for my opinion and advice regarding an incidental MRI finding within the pancreas. PAST MEDICAL HISTORY Diagnosis Date Arthritis Back disorder Benign neoplasm of colon Coronary artery disease diabetes pre diabetic Diverticulosis Enlarged prostate Heart disease Myopia Rheumatoid arthritis (HCC) Unspecified essential hypertension Essential hypertension PAST SURGICAL HISTORY Procedure Laterality Date COLONOSCOPY FLX DX W/COLLJ SPEC WHEN PFRMD 03/10/2011 Colonoscopy COLONOSCOPY FLX DX W/COLLJ SPEC WHEN PFRMD 07/05/2021 ESOPHAGOGASTRODUODENOSCOPY TRANSORAL DIAGNOSTIC 07/05/2021 HERNIA REPAIR HX x2 PAST SURGICAL HISTORY OF 12/2008 Heart stent PAST SURGICAL HISTORY OF skin graft left 4th finger PAST SURGICAL HISTORY OF left thumb PAST SURGICAL HISTORY OF Bilateral cataract surgery done by Dr Cha @ [facility] 12/28/22 OD 01/11/23 TONSILLECTOMY HX TONSILLECTOMY PRIMARY/SECONDARY <AGE 13 Tonsillectomy alone Current Outpatient Medications Medication Sig valsartan (DIOVAN) 160 mg tablet Take 160 mg by mouth once daily. omeprazole (PRILOSEC) 20 mg capsule Take 2 capsules by mouth once daily. (Patient taking differently: Take 40 mg by mouth once daily. Takes 1 tablet twice a week) finasteride (PROSCAR) 5 mg tablet Take 5 mg by mouth. ezetimibe (ZETIA) 10 mg tablet Take 10 mg by mouth once daily. atorvastatin (LIPITOR) 80 mg tablet Take 80 mg by mouth once daily. hydroCHLOROthiazide (HYDRODIURIL, ESIDRIX) 50 mg tablet Take 50 mg by mouth once daily. Cholecalciferol, Vitamin D3, 50 mcg (2,000 unit) cap Take by mouth. metoprolol succinate ER (TOPROL XL) 50 mg 24 hr tablet Take 25 mg by mouth once daily. Potassium Chloride (SLOW-K) 8 mEq tablet Take 8 mEq by mouth once daily. ASPIRIN (ASPIR-81 ORAL) Take 1 tablet by mouth once daily. MULTI-VITAMIN ORAL Take 1 tablet by mouth once daily. leflunomide (ARAVA) 10 mg tablet Take 10 mg by mouth every other day. [id number] 1-0.5-0.075 % drps Use 1 Drop in eyes twice daily. Right eye (Patient not taking: Reported on 04/05/2023) simvastatin 40 mg ORAL tablet Take 40 mg by mouth daily at bedtime. (Patient not taking: Reported on 08/17/2023) No current facility-administered medications for this visit. ALLERGIES: Patient has no known allergies. PERSONAL HISTORY: Social History Tobacco Use Smoking status: Never Smokeless tobacco: Never Vaping Use Vaping Use: Never used Substance Use Topics Alcohol use: No Drug use: No FAMILY HISTORY: FAMILY HISTORY Problem Relation Age of Onset Hypertension Mother Hypertension Father other (bladder cancer) Sister Breast Cancer Sister Lymphoma Sister Crohn's Disease Brother Prostate Cancer Brother Prostate Cancer Brother REVIEW OF SYMPTOMS: The review of systems data was entered by the nurse and reviewed by me There are no exam notes on file for this visit. PHYSICAL EXAMINATION: General: The patient is 88 year old male, well nourished, well hydrated in no acute distress. The patient is oriented to time, place, and person. VITALS: Blood pressure 130/74, pulse 68, temperature 36.2 C (97.2 F), height 175.3 cm (5' 9 ), weight 88 kg (194 lb), SpO2 98%. HEENT: Normal cephalic, ataumatic, pupils are equally round, sclera are anicteric, mucous membranes are moist, oropharynx is clear. Neck has no masses, asymmetry or lymphadenopathy. Thyroid is unremarkable. Respiratory: Clear to auscultation and percussion. Normal respiratory excursion and pattern. Cardiac: Examination is regular rate and rhythm. Abdominal exam: Soft, nontender, with no palpable masses. No hepatosplenomegaly. No palpable hernias. Rectal exam: exam deferred Extremities: no clubbing, cyanosis or edema. No adenopathy. Other: LABORATORY VALUES: As Noted RADIOLOGIC STUDIES: As Noted Assessment IMPRESSION: Incidental pancreatic cystic mass finding PLAN: The interpreting radiologist impression was that this was a low risk lesion and recommended follow-up in 2 years. As this is an incidental finding, I have ordered a CA 19-9 to assure that this pancreatic tumor marker is not elevated. I plan to have my office have the actual MRI images transferred to the [facility] and have the MRI reread to better delineate the risk of this pancreatic cystic mass. If deemed to be higher risk, I would refer to GI for endoscopic ultrasound and possible aspiration. I discussed with the patient pancreatic cysts versus IPMN's and a variety of workups based on the anticipated risk of those findings Diagnoses: (K86.2) Pancreatic cyst (primary encounter diagnosis) A letter was sent to Dr. Hugo Cunningham MD, MD indicating the above finding for this patient. Return to Clinic: The patient is instructed to follow-up with me after imaging has been reviewed either in person or via virtual visit. Ruth Antony MD documented in this encounter [facility] 07-31-2023 History of Present illness Narrative Subjective History of Present Illness Presence of Pain: denies pain/discomfort. Total time spent in this encounter was 50 minutes. Patient is being evaluated for an unstable chronic illness that increase morbidity and mortality. Due to patient's coexisting health problems and co-morbidities treatment is and will be very difficult. Patient was referred her by Dr. Cunningham for RA. Patient states he has been going to [place] to see cook barbecue and is here to get established. Dx with RA 1972. Objective Review of Systems Constitutional: Positive for fatigue. HENT: Negative. Eyes: Negative. Respiratory: Negative. Cardiovascular: Negative. Gastrointestinal: Negative. Endocrine: Negative. Genitourinary: BPH Musculoskeletal: Positive for arthralgias, back pain, gait problem, neck pain and neck stiffness. Skin: Negative. Allergic/Immunologic: Negative. Neurological: Positive for weakness. Hematological: Negative. Psychiatric/Behavioral: Negative. Vitals: There were no vitals taken for this visit. Physical Exam Vitals and nursing note reviewed. Constitutional: Appearance: Normal appearance. HENT: Head: Normocephalic and atraumatic. Right Ear: External ear normal. Left Ear: External ear normal. Nose: Nose normal. Mouth/Throat: Mouth: Mucous membranes are dry. Pharynx: Oropharynx is clear. Eyes: Extraocular Movements: Extraocular movements intact. Conjunctiva/sclera: Conjunctivae normal. Pupils: Pupils are equal, round, and reactive to light. Comments: glasses Cardiovascular: Rate and Rhythm: Normal rate and regular rhythm. Pulses: Carotid pulses are 2+ on the right side and 2+ on the left side. Radial pulses are 2+ on the right side and 2+ on the left side. Heart sounds: Normal heart sounds. Comments: No subclavian or carotid bruits. Ddi not take of shoes for exam Pulmonary: Effort: Pulmonary effort is normal. Breath sounds: Normal breath sounds. Abdominal: General: Bowel sounds are normal. Palpations: Abdomen is soft. Musculoskeletal: Right shoulder: Tenderness present. Decreased range of motion. Left shoulder: Tenderness present. Decreased range of motion. Right upper arm: Tenderness present. Left upper arm: Tenderness present. Right elbow: Normal. Left elbow: Normal. Right forearm: Normal. Left forearm: Normal. Right wrist: Tenderness and bony tenderness present. Decreased range of motion. Left wrist: Tenderness and bony tenderness present. Decreased range of motion. Right hand: Deformity, tenderness and bony tenderness present. Decreased range of motion. Decreased strength. Left hand: Deformity, tenderness and bony tenderness present. Decreased range of motion. Decreased strength. Cervical back: Neck supple. Tenderness present. Decreased range of motion. Thoracic back: Decreased range of motion. Lumbar back: Tenderness present. Decreased range of motion. Right hip: Decreased range of motion. Left hip: Decreased range of motion. Right upper leg: Normal. Left upper leg: Normal. Right knee: Decreased range of motion. Tenderness present. Left knee: Decreased range of motion. Tenderness present. Right lower le+ Edema present. Left lower le+ Edema present. Right ankle: Decreased range of motion. Left ankle: Decreased range of motion. Comments: Increased kyphosis Skin: General: Skin is warm and dry. Neurological: Mental Status: He is alert and oriented to person, place, and time. Cranial Nerves: Cranial nerves 2-12 are intact. Sensory: Sensation is intact. Motor: Weakness present. Gait: Gait abnormal. 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 Behavior: Behavior normal. Thought Content: Thought content normal. Judgment: Judgment normal. Neurological Exam Mental Status Alert. Oriented to person, place, and time. Cranial Nerves CN II: Vision test: glasses. CN III, IV, : Extraocular movements intact bilaterally. Pupils equal round and reactive to light bilaterally. Sensory Normal sensation. Gait Abnormal gait. 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 Assessment and Plan Encounter Diagnoses Name Primary? 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 A complete H&P&ROS was obtained and is either in this note or in the EHR. Please do not hesitate to contact me with any questions or concerns re: this patient. Past History: Past medical, surgical, family, and social histories have been reviewed and updated with the patient today and are located elsewhere in the medical record. Thank you for allowing me to participate in the care of your patient. With your permission I would like to F/U with your patient. Differenetial Diagnosis includes but is not limited to Autoimmune Disease, Connective Tissue Disease, Collagen Vascular Disorder, Infection, and Neoplasm. Lab and x-ray and Follow-up with me in 2 weeks Patient was given educational material on RA. Different treatment options were discussed with the patient today. Patient should get the Shingrix vaccine if not already done Vit D under care of PCP Patient is taking Diovan Patient is taking Tylenol PRN. Patient given educational material on OA in the from of a pamphlet from the arthritis foundation. Patient told that PT and keeping ideal body wt would be the cornerstone of treatment Rx given for PT: patient has been as is doing HEP and declines another trip. Rx given for OT: Patient has been and is doing HEP and declines another trip ESR is normal at 6. Normal CMP, CBC, CRP is negative at < 4.0 X-rays of knees show OA If knee and shoulder and wrist and hand problems continue rec: ortho eval Patient declines referral to Ortho as he has seen one and does not feel that he knees replacement If patient continues to have trouble with back pain would rec: eval by spinal surgery and/or chronic pain management If neck pain continues rec: eval by spinal surgery and/or chronic pain management Patient declines referral to hand surgeon Methotrexate did not help Arava stopped as caused side effect. documented in this encounter [facility] 04-13-2023 Evaluation + Plan note Associated Problem(s): Benign prostatic hyperplasia Dx BPH/LUTS, 176 g, taking finasteride 5 mg daily and LUTS improved Hx elevated PSA, usually 5-9, neg pbx x2 (01/13/13, 06/12/01), chronic prostatitis, 176 g, family hx plastic roller (brother). We discussed PSA testing guidelines. Pt has stopped PSA for prostate cancer screening Plan follow up in 1 year. Continue finasteride [facility] 04-13-2023 Miscellaneous Notes Associated Problem(s): Benign prostatic hyperplasia Dx BPH/LUTS, 176 g, taking finasteride 5 mg daily and LUTS improved Hx elevated PSA, usually 5-9, neg pbx x2 (01/13/13, 06/12/01), chronic prostatitis, 176 g, family hx plastic roller (brother). We discussed PSA testing guidelines. Pt has stopped PSA for prostate cancer screening Plan follow up in 1 year. Continue finasteride documented in this encounter [facility] 04-13-2023 History of Present illness Narrative DATE: 04/13/2023 CHIEF COMPLAINT: Chief Complaint Patient presents with Follow-up No new or worsening symptoms HISTORY OF PRESENT ILLNESS: Jaye Maya is a 88 y.o. male with prior history of BPH and elevated PSA. Initially seen by and referred by Hugo Cunningham MD. Duration: 23 years Aggravating Factors: large volume BPH Alleviating Factors: Rx Associated Symptoms: denies Systemic:The patient denies any weight loss, malaise, fatigue, pain, or night sweats. Urinary: The patient reports normal FOS and urinary function. Patient denies urinary dysuria, frequency, urgency, nocturia, hematuria, or incontinence. Bowel: No constipation, diarrhea, or fecal incontinence Dx BPH/LUTS, 176 g, started finasteride 5 mg daily Oct 2019 and LUTS improved Dx phimosis, balanitis. Taking topical lotrisone. Erythema resolved but pt notes phimosis. We discussed observation, topical therapy and circumcision Dx elevated PSA, usually 5-9, neg pbx x2 (01/13/13, 06/12/01), chronic prostatitis, 176 g, family hx plastic roller (brother). We discussed PSA testing guidelines. We discussed goals of PSA testing for a man in his 80s HISTORY: PMH Past Medical History: Diagnosis Date Coronary artery disease Hyperlipemia Hypertension PSH Past Surgical History: Procedure Laterality Date CARDIAC CATHETERIZATION CARPAL TUNNEL RELEASE Bilateral CORONARY STENT PLACEMENT HERNIA REPAIR x2 SH Social History Socioeconomic History Marital status: Tobacco Use Smoking status: Never Smokeless tobacco: Never Vaping Use Vaping Use: Never used Substance and Sexual Activity Alcohol use: Not Currently Drug use: Never FH Family History Problem Relation Age of Onset Cancer Brother Prostate, 2 brothers Hypertension Sister Cancer Sister ALLERGIES AND MEDICATIONS Allergies: Celecoxib Current Outpatient Medications: aspirin 81 MG EC tablet, Take 1 (one) tablet (81 mg total) by mouth daily ., Disp: , Rfl: atorvastatin (LIPITOR) 80 MG tablet, atorvastatin 80 mg tablet, Disp: , Rfl: cholecalciferol, vitamin D3, 25 mcg (1,000 unit) capsule, Take 2 (two) capsules (2,000 Units total) by mouth daily ., Disp: , Rfl: ezetimibe (ZETIA) 10 mg tablet, ezetimibe 10 mg tablet 1 tab qd, Disp: , Rfl: hydroCHLOROthiazide (HYDRODIURIL) 50 MG tablet, Take 1 (one) tablet (50 mg total) by mouth daily ., Disp: , Rfl: metoprolol succinate (TOPROL-XL) 25 MG 24 hr tablet, Take 1 (one) tablet (25 mg total) by mouth daily ., Disp: , Rfl: montelukast (SINGULAIR) 10 mg tablet, every night at bedtime ., Disp: , Rfl: multivit-min/ferrous fumarate (MULTI VITAMIN ORAL), Take 1 tablet by mouth every night at bedtime ., Disp: , Rfl: omeprazole (PRILOSEC OTC) 20 MG tablet, Take 1 (one) tablet (20 mg total) by mouth ., Disp: , Rfl: omeprazole (PRILOSEC) 10 MG capsule, Take 2 (two) capsules (20 mg total) by mouth Taking twice weekly ., Disp: , Rfl: OneTouch Delica Plus Lancet 33 gauge Misc, USE LANCET TO CHECK GLUCOSE ONCE DAILY DIRECTED, Disp: , Rfl: OneTouch Ultra Blue Test Strip strips, USE STRIP TO CHECK GLUCOSE ONCE DAILY DIRECTED, Disp: , Rfl: potassium chloride (KLOR-CON) 8 MEQ CR tablet, , Disp: , Rfl: predniSONE (DELTASONE) 5 MG tablet, TAKE 3 TABLETS BY MOUTH ONCE DAILY FOR 7 DAYS, THEN 2 TABLETS ONCE DAILY FOR 7 DAYS, THEN 1 & 1/2 (ONE & ONE-HALF) TABLETS ONCE DAILY FOR 7 DAYS, THEN CONTINUE 1 TABLET ONCE DAILY, Disp: , Rfl: valsartan (DIOVAN) 160 MG tablet, , Disp: , Rfl: REVIEW OF SYSTEMS: CONSTITUTIONAL: No weight loss, malaise, or fatigue EYES: No changes in vision, no blurry vision EARS, NOSE, MOUTH, THROAT: No change in hearing, No difficulty swallowing. CARDIOVASCULAR: No chest pain or heart palpitations. RESPIRATORY: No difficulty breathing or wheezing. GI: No changes in bowel habit. No blood in his stool. : No dysuria, hematuria, or urinary tract infections. The rest as above in the HPI. MUSCULOSKELETAL: No joint pain or swelling. VASCULAR: No peripheral edema. No calf pain with exertion. NEURO: No changes in gait or sensation. SKIN: No rashes or lesions. PSYCHIATRIC: No depressive or suicidal thoughts PHYSICAL EXAM: CONSTITUTIONAL: VITAL SIGNS: Vitals: 04/13/23 1432 BP: 113/66 BP Location: Left arm Patient Position: Sitting Pulse: 62 Resp: 16 Temp: 98.7 F (37.1 C) TempSrc: Temporal SpO2: 98% GENERAL: Well appearing. No acute distress. EYES: PERRLA, EOMI EARS, NOSE, MOUTH, THROAT: mucous memebranes moist, trachea midline CARDIOVASCULAR: RRR, normal carotid pulse, no peripheral edema. ABDOMEN: Soft, nondistended, nontender. BACK: No CVA tenderness. : Deferred per patient MUSCULOSKELETAL: normal extremity ROM with no edema LYMPH: No cervical or supraclavicular lymphadenopathy NEURO: Normal gait, CN II-XII grossly intact PSYCHATRIC: A & O x3, mood and affect appropriate SKIN: No rashes, ulcers, or lesions visible DATA: IMAGING: LAB: 02/24/19 PSA 9.28 10/16/19 PSA 10.46 free 20% PSAD 0.088 01/28/18 PSA 8.58, free 24% 07/03/17 PSA 7.93, free 25% 01/02/17 PSA 11.58 Lab Results Component Value Date PSASCRN 3.89 (H) 04/07/2022 PSASCRN 4.83 (H) 08/11/2020 PSASCRN 5.49 (H) 08/11/2020 ASSESSMENT / PLAN: Problem List Items Addressed This Visit Genitourinary Benign prostatic hyperplasia Dx BPH/LUTS, 176 g, taking finasteride 5 mg daily and LUTS improved Hx elevated PSA, usually 5-9, neg pbx x2 (01/13/13, 06/12/01), chronic prostatitis, 176 g, family hx plastic roller (brother). We discussed PSA testing guidelines. Pt has stopped PSA for prostate cancer screening Plan follow up in 1 year. Continue finasteride We discussed the diagnosis of BPH Patient wants to pursue evaluation in 1 year We discussed treatment options including:Rx @MYSIG@ documented in this encounter [facility] 04-05-2023 Note HNO ID: [id number] Author: Flores Story II, OD Service: ? 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 Stable osorio and nerve fiber layers in areas scanned today. Repeat in one year. No treatment indicated at this time. Discussed need for continued close observation to minimize chance of future vision loss. Z98.42, Z96.1 Status post cataract extraction and insertion of intraocular lens of left eye Z98.41, Z96.1 Status post cataract extraction and insertion of intraocular lens of right eye Comment: Healing well both eyes. Monitor for change. Recheck in December 2023. H02.831, H02.834 Dermatochalasis of both upper eyelids Comment: Patient will tolerate for now. Monitor for progression and interference with vision. I have confirmed and edited as necessary the relevant ophthalmic history, ROS, and the neuro exam findings as obtained by others. I have seen and examined Jaye Maya. I have discussed the case and the management of this patient's care with the Resident/Fellow, if applicable. I also have reviewed and agree with the assessment and plan as stated above and agree with all of its relevant components. 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 Stable osorio and nerve fiber layers in areas scanned today. Repeat in one year. No treatment indicated at this time. Discussed need for continued close observation to minimize chance of future vision loss. Z98.42, Z96.1 Status post cataract extraction and insertion of intraocular lens of left eye Z98.41, Z96.1 Status post cataract extraction and insertion of intraocular lens of right eye Comment: Healing well both eyes. Monitor for change. Recheck in December 2023. H02.831, H02.834 Dermatochalasis of both upper eyelids Comment: Patient will tolerate for now. Monitor for progression and interference with vision. I have confirmed and edited as necessary the relevant ophthalmic history, ROS, and the neuro exam findings as obtained by others. I have seen and examined Jaye Maya. I have discussed the case and the management of this patient's care with the Resident/Fellow, if applicable. I also have reviewed and agree with the assessment and plan as stated above and agree with all of its relevant components. 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 Stable osorio and nerve fiber layers in areas scanned today. Repeat in one year. No treatment indicated at this time. Discussed need for continued close observation to minimize chance of future vision loss. Z98.42, Z96.1 Status post cataract extraction and insertion of intraocular lens of left eye Z98.41, Z96.1 Status post cataract extraction and insertion of intraocular lens of right eye Comment: Healing well both eyes. Monitor for change. Recheck in December 2023. H02.831, H02.834 Dermatochalasis of both upper eyelids Comment: Patient will tolerate for now. Monitor for progression and interference with vision. I have confirmed and edited as necessary the relevant ophthalmic history, ROS, and the neuro exam findings as obtained by others. I have seen and examined Jaye Maya. I have discussed the case and the management of this patient's care with the Resident/Fellow, if applicable. I also have reviewed and agree with the assessment and plan as stated above and agree with all of its relevant components. Flores Story II, OD documented in this encounter [facility] 02-08-2023 Note HNO ID: [id number] Author: Serene Ramírez LPN Service: ? Author Type: ? Type: Progress Notes Filed: 02/08/2023 2:02 PM Note Text: Patient presents for COVID vaccine. Denies any problems at this time. Tolerated injection well. Serene Ramírez LPN [facility] 02-08-2023 History of Present illness Narrative Patient presents for COVID vaccine. Denies any problems at this time. Tolerated injection well. Serene Ramírez LPN documented in this encounter [facility] 02-08-2023 Note HNO ID: [id number] Author: Flores Story II, OD Service: ? Author Type: DI[employer]ADER Type: Progress Notes Filed: 02/08/2023 11:28 AM Note Text: Assessment and Plan Z98.41, Z96.1 Status post cataract extraction and insertion of intraocular lens of right eye (primary encounter diagnosis) Z98.42, Z96.1 Status post cataract extraction and insertion of intraocular lens of left eye Comment: Healing well both eyes. Update glasses to maximize visual performance. Recheck in 2 months. Repeat OCT NFA and 24-2 Visual field at that time. Instruct patient to immediately report any change in condition outside of expected and discussed symptoms. I have confirmed and edited as necessary the relevant ophthalmic history, ROS, and the neuro exam findings as obtained by others. I have seen and examined Jaye Maya. I have discussed the case and the management of this patient's care with the Resident/Fellow, if applicable. I also have reviewed and agree with the assessment and plan as stated above and agree with all of its relevant components. Flores Story II, SELINA [facility] 02-08-2023 Instructions Flores Story II, OD - 02/08/2023 11:28 AM EDT Assessment and Plan Z98.41, Z96.1 Status post cataract extraction and insertion of intraocular lens of right eye (primary encounter diagnosis) Z98.42, Z96.1 Status post cataract extraction and insertion of intraocular lens of left eye Comment: Healing well both eyes. Update glasses to maximize visual performance. Recheck in 2 months. Repeat OCT NFA and 24-2 Visual field at that time. Instruct patient to immediately report any change in condition outside of expected and discussed symptoms. I have confirmed and edited as necessary the relevant ophthalmic history, ROS, and the neuro exam findings as obtained by others. I have seen and examined Jaye Maya. I have discussed the case and the management of this patient's care with the Resident/Fellow, if applicable. I also have reviewed and agree with the assessment and plan as stated above and agree with all of its relevant components. Flores Story II, OD documented in this encounter [facility] 02-08-2023 History of Present illness Narrative Assessment and Plan Z98.41, Z96.1 Status post cataract extraction and insertion of intraocular lens of right eye (primary encounter diagnosis) Z98.42, Z96.1 Status post cataract extraction and insertion of intraocular lens of left eye Comment: Healing well both eyes. Update glasses to maximize visual performance. Recheck in 2 months. Repeat OCT NFA and 24-2 Visual field at that time. Instruct patient to immediately report any change in condition outside of expected and discussed symptoms. I have confirmed and edited as necessary the relevant ophthalmic history, ROS, and the neuro exam findings as obtained by others. I have seen and examined Jaye Maya. I have discussed the case and the management of this patient's care with the Resident/Fellow, if applicable. I also have reviewed and agree with the assessment and plan as stated above and agree with all of its relevant components. Flores Story II, OD documented in this encounter [facility] 01-23-2023 Note HNO ID: [id number] Author: Flores Story II, OD Service: ? Author Type: [employer]ER Type: Progress Notes Filed: 01/23/2023 12:08 PM Note Text: Assessment and Plan Z98.41, Z96.1 Status post cataract extraction and insertion of intraocular lens of right eye (primary encounter diagnosis) Z98.42, Z96.1 Status post cataract extraction and insertion of intraocular lens of left eye Comment: Healing well. Posterior chamber intraocular lenses are well positioned and clear. Continue schedule of postoperative medications as directed. Recheck refraction at next visit before pseudophakic spectacles obtained. Recheck in 2-3 weeks. Instruct patient to immediately report any change in condition outside of expected and discussed symptoms. Glaucoma suspect. Due for OCT NFA and threshold Visual field in March,. I have confirmed and edited as necessary the relevant ophthalmic history, ROS, and the neuro exam findings as obtained by others. I have seen and examined Jaye Maya. I have discussed the case and the management of this patient's care with the Resident/Fellow, if applicable. I also have reviewed and agree with the assessment and plan as stated above and agree with all of its relevant components. Flores Story II, OD [facility] 01-23-2023 Instructions Flores Story II, OD - 01/23/2023 12:07 PM EDT Assessment and Plan Z98.41, Z96.1 Status post cataract extraction and insertion of intraocular lens of right eye (primary encounter diagnosis) Z98.42, Z96.1 Status post cataract extraction and insertion of intraocular lens of left eye Comment: Healing well. Posterior chamber intraocular lenses are well positioned and clear. Continue schedule of postoperative medications as directed. Recheck refraction at next visit before pseudophakic spectacles obtained. Recheck in 2-3 weeks. Instruct patient to immediately report any change in condition outside of expected and discussed symptoms. Glaucoma suspect. Due for OCT NFA and threshold Visual field in March,. I have confirmed and edited as necessary the relevant ophthalmic history, ROS, and the neuro exam findings as obtained by others. I have seen and examined Jaye Maya. I have discussed the case and the management of this patient's care with the Resident/Fellow, if applicable. I also have reviewed and agree with the assessment and plan as stated above and agree with all of its relevant components. Flores Story II, OD documented in this encounter [facility] 01-23-2023 History of Present illness Narrative Assessment and Plan Z98.41, Z96.1 Status post cataract extraction and insertion of intraocular lens of right eye (primary encounter diagnosis) Z98.42, Z96.1 Status post cataract extraction and insertion of intraocular lens of left eye Comment: Healing well. Posterior chamber intraocular lenses are well positioned and clear. Continue schedule of postoperative medications as directed. Recheck refraction at next visit before pseudophakic spectacles obtained. Recheck in 2-3 weeks. Instruct patient to immediately report any change in condition outside of expected and discussed symptoms. Glaucoma suspect. Due for OCT NFA and threshold Visual field in March,. I have confirmed and edited as necessary the relevant ophthalmic history, ROS, and the neuro exam findings as obtained by others. I have seen and examined Jaye Maya. I have discussed the case and the management of this patient's care with the Resident/Fellow, if applicable. I also have reviewed and agree with the assessment and plan as stated above and agree with all of its relevant components. Flores Story II, OD documented in this encounter [facility] 11-07-2022 Evaluation + Plan note Associated Problem(s): Mixed hyperlipidemia Last LDL was 69. Continue atorvastatin and Zetia. [facility] 11-07-2022 Evaluation + Plan note Associated Problem(s): Hypertension, essential Blood pressures well controlled at home. Continue medical therapy. [facility] 11-07-2022 Miscellaneous Notes Associated Problem(s): Mixed hyperlipidemia Last LDL was 69. Continue atorvastatin and Zetia. Associated Problem(s): Hypertension, essential Blood pressures well controlled at home. Continue medical therapy. 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 He denies symptoms of angina. He had a low risk stress test in 2020. I will continue medical therapy. 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 He denies symptoms of angina. He had a low risk stress test in 2020. I will continue medical therapy. [facility] 11-07-2022 Instructions Mahnaz Bell RN - 11/07/2022 12:47 PM EDT To reach Dr. Barbour's Nurse Thoracic Surgeon Autumn Childress directly, please call [phone]. Please note that this voicemail is NOT checked after 4 pm during the week. It is also not check on holidays or weekends. You can also send messages via My Chart. These are also only answered during normal business hours, M-F. The main office number is [phone] should you have problems during those times and need to speak with the radio station operator physician. This is also the number you can use to schedule appointments. The main fax number is [phone]. Office Address: [address] [place] [address] Scheduling Appts or testing: Please call , Option #1 to schedule or reschedule an appointment. Please call if you are unable to keep your appointment. No show appointments are tracked and unfortunately could result in your dismissal from our practice. Prescription Refill Directions: We will refill cardiac medications as long as you are a current patient. When requesting a refill, be sure to do this ahead of time to allow us time to process there refill so that you do not run out of medication. Please send a message through your MedLinkhart or call Jose's direct line to leave a detailed message for a refill. FOR REFILLS: Please leave your full name with spelling Date of Your call back number The medication name with spelling and with directions on how it is prescribed for you to take The pharmacy of your choice with the pharmacy address or phone number. You will not hear back from us regarding your refill request unless there is an issue. If your pharmacy does not notify you that a prescription is ready for you, please call the pharmacy in the next 1-2 days to see if they have the prescription ready for you. 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 He denies symptoms of angina. He had a low risk stress test in 2020. I will continue medical therapy. Hypertension, essential Blood pressures well controlled at home. Continue medical therapy. Mixed hyperlipidemia Last LDL was 69. Continue atorvastatin and Zetia. Follow-up: No follow-ups on file. Chief Complaint: Yearly follow-up. Subjective History of Present Illness: Jaye Maya is a 87 y.o. male with a history of CAD status post LIZBET of the diagonal artery in 2008, hypertension and dyslipidemia. Patient denies any symptoms of angina or CHF. He denies any palpitations, lightheadedness or syncope. Patient's blood pressures under very good control at home. In the 120s over 70 range. He does exercise without any problems. 08/2022-LDL 69 triglycerides 84 10/2022-potassium 4.9 creatinine 1.11 2008-cardiac cath-mild LAD, 90% mid diagonal 1, mild circumflex and RCA. LIZBET of the mid diagonal 1. 2008 echo EF 60%, no valvular abnormalities 04/25/2021-stress Cardiolite-EF 78%. No evidence of ischemia or infarction. Objective Imaging: I independently reviewed the EKG and agree with the interpretation(s) with the following comments. 11/07/2267-QAV-[id number] Rhythm ECG 12 Lead Final Result by Cinthya Barbour MD (11/07/2022 1245) Review of Systems: Review of systems performed by the medical accounting clerk, personally reviewed and viewable in the current patient encounter. Pertinent positive and negative findings detailed in HPI. HOME Medications: Current Outpatient Medications on File Prior to Visit Medication Sig aspirin 81 MG EC tablet Take 1 (one) tablet (81 mg total) by mouth daily . atorvastatin (LIPITOR) 80 MG tablet atorvastatin 80 mg tablet cholecalciferol, vitamin D3, 25 mcg (1,000 unit) capsule Take 2 (two) capsules (2,000 Units total) by mouth daily . clotrimazole-betamethasone (LOTRISONE) cream Apply topically 2 (two) times a day . ezetimibe (ZETIA) 10 mg tablet ezetimibe 10 mg tablet 1 tab qd finasteride (PROSCAR) 5 mg tablet Take 1 (one) tablet (5 mg total) by mouth daily . hydroCHLOROthiazide (HYDRODIURIL) 50 MG tablet Take 1 (one) tablet (50 mg total) by mouth daily . leflunomide (ARAVA) 10 MG tablet Take 2 (two) tablets (20 mg total) by mouth daily . metoprolol succinate (TOPROL-XL) 25 MG 24 hr tablet Take 1 (one) tablet (25 mg total) by mouth daily . montelukast (SINGULAIR) 10 mg tablet every night at bedtime . multivit-min/ferrous fumarate (MULTI VITAMIN ORAL) Take 1 tablet by mouth every night at bedtime . omeprazole (PRILOSEC OTC) 20 MG tablet Take 1 (one) tablet (20 mg total) by mouth . OneTouch Delica Plus Lancet 33 gauge Misc USE LANCET TO CHECK GLUCOSE ONCE DAILY DIRECTED OneTouch Ultra Blue Test Strip strips USE STRIP TO CHECK GLUCOSE ONCE DAILY DIRECTED potassium chloride (KLOR-CON) 8 MEQ CR tablet predniSONE (DELTASONE) 5 MG tablet TAKE 3 TABLETS BY MOUTH ONCE DAILY FOR 7 DAYS, THEN 2 TABLETS ONCE DAILY FOR 7 DAYS, THEN 1 & 1/2 (ONE & ONE-HALF) TABLETS ONCE DAILY FOR 7 DAYS, THEN CONTINUE 1 TABLET ONCE DAILY valsartan (DIOVAN) 160 MG tablet omeprazole (PRILOSEC) 10 MG capsule Take 2 (two) capsules (20 mg total) by mouth Taking twice weekly . [DISCONTINUED] lisinopriL (PRINIVIL,ZESTRIL) 10 MG tablet Take 1 (one) tablet (10 mg total) by mouth daily . No current facility-administered medications on file prior to visit. Vital Signs: BP (!) 145/80 (BP Location: Right arm, Patient Position: Sitting, BP Cuff Size: Adult) Pulse 75 Ht 5' 9 Wt 89 kg (196 lb 3.2 oz) BMI 28.97 kg/m Physical Exam Neck: Vascular: No carotid bruit. Cardiovascular: Rate and Rhythm: Normal rate and regular rhythm. Heart sounds: No murmur heard. Pulmonary: Effort: Pulmonary effort is normal. Breath sounds: No wheezing or rales. Musculoskeletal: Right lower leg: No edema. Left lower leg: No edema. Labs: I personally reviewed and interpreted the labs documented below. No results found for: CHOL, LDLCALC, LDLDIRECT, TRIG, HDL Creatinine clearance cannot be calculated (Patient's most recent lab result is older than the maximum 14 days allowed.) Underground Utility Locator: No documented in this encounter [facility] 11-01-2022 Note HNO ID: [id number] Author: Flores Story II, OD Service: ? 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 Medically necessary surgery recommended to improve functional vision. Patient requests referral to [facility]. Appointment made for consult. I have confirmed and edited as necessary the relevant ophthalmic history, ROS, and the neuro exam findings as obtained by others. I have seen and examined Jaye Maya. I have discussed the case and the management of this patient's care with the Resident/Fellow, if applicable. I also have reviewed and agree with the assessment and plan as stated above and agree with all of its relevant components. 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 Medically necessary surgery recommended to improve functional vision. Patient requests referral to [facility]. Appointment made for consult. I have confirmed and edited as necessary the relevant ophthalmic history, ROS, and the neuro exam findings as obtained by others. I have seen and examined Jaye Maya. I have discussed the case and the management of this patient's care with the Resident/Fellow, if applicable. I also have reviewed and agree with the assessment and plan as stated above and agree with all of its relevant components. 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 Medically necessary surgery recommended to improve functional vision. Patient requests referral to [facility] in [place]. Appointment made for consult. I have confirmed and edited as necessary the relevant ophthalmic history, ROS, and the neuro exam findings as obtained by others. I have seen and examined Jaye Maya. I have discussed the case and the management of this patient's care with the Resident/Fellow, if applicable. I also have reviewed and agree with the assessment and plan as stated above and agree with all of its relevant components. Flores Story II, OD documented in this encounter [facility] 10-06-2022 Evaluation + Plan note Associated Problem(s): Benign prostatic hyperplasia Dx BPH/LUTS, 176 g, started finasteride 5 mg daily Oct 2019 and LUTS improved, pt satisfied. Continue finasteride Dx phimosis, balanitis. Taking topical lotrisone. Erythema resolved but pt notes phimosis. We discussed observation, topical therapy and circumcision Dx elevated PSA, usually 5-9, neg pbx x2 (01/13/13, 06/12/01), chronic prostatitis, 176 g, family hx plastic roller (brother). We discussed PSA testing guidelines. We discussed goals of PSA testing for a man in his 80s Plan is to continue finasteride and follow up in 6 months [facility] 10-06-2022 Miscellaneous Notes Associated Problem(s): Benign prostatic hyperplasia Dx BPH/LUTS, 176 g, started finasteride 5 mg daily Oct 2019 and LUTS improved, pt satisfied. Continue finasteride Dx phimosis, balanitis. Taking topical lotrisone. Erythema resolved but pt notes phimosis. We discussed observation, topical therapy and circumcision Dx elevated PSA, usually 5-9, neg pbx x2 (01/13/13, 06/12/01), chronic prostatitis, 176 g, family hx plastic roller (brother). We discussed PSA testing guidelines. We discussed goals of PSA testing for a man in his 80s Plan is to continue finasteride and follow up in 6 months documented in this encounter [facility] 10-06-2022 History of Present illness Narrative DATE: 10/06/2022 CHIEF COMPLAINT: Chief Complaint Patient presents with 6 month check up Symptoms have improved, nocturia 1-2x HISTORY OF PRESENT ILLNESS: Jaye Maya is a 87 y.o. male with prior history of BPH and elevated PSA. Initially seen by and referred by Hugo Cunningham MD. Duration: 22 1/2 years Aggravating Factors: large volume BPH Alleviating Factors: Rx Associated Symptoms: improved Systemic:The patient denies any weight loss, malaise, fatigue, pain, or night sweats. Urinary: The patient reports normal FOS and urinary function. Patient denies urinary dysuria, frequency, urgency, nocturia, hematuria, or incontinence. Bowel: No constipation, diarrhea, or fecal incontinence Dx BPH/LUTS, 176 g, started finasteride 5 mg daily Oct 2019 and LUTS improved, pt satisfied. Continue finasteride Dx phimosis, balanitis. Taking topical lotrisone. Erythema resolved but pt notes phimosis. We discussed observation, topical therapy and circumcision Dx elevated PSA, usually 5-9, neg pbx x2 (01/13/13, 06/12/01), chronic prostatitis, 176 g, family hx plastic roller (brother). We discussed PSA testing guidelines. We discussed goals of PSA testing for a man in his 80s. HISTORY: PMH Past Medical History: Diagnosis Date Coronary artery disease Hyperlipemia Hypertension PSH Past Surgical History: Procedure Laterality Date CARDIAC CATHETERIZATION CARPAL TUNNEL RELEASE Bilateral CORONARY STENT PLACEMENT HERNIA REPAIR x2 SH Social History Socioeconomic History Marital status: Tobacco Use Smoking status: Never Smokeless tobacco: Never Vaping Use Vaping Use: Never used Substance and Sexual Activity Alcohol use: Not Currently Drug use: Never FH Family History Problem Relation Age of Onset Cancer Brother Prostate, 2 brothers Hypertension Sister Cancer Sister ALLERGIES AND MEDICATIONS Allergies: Celecoxib Current Outpatient Medications: aspirin 81 MG EC tablet, Take 1 (one) tablet (81 mg total) by mouth daily ., Disp: , Rfl: atorvastatin (LIPITOR) 80 MG tablet, atorvastatin 80 mg tablet, Disp: , Rfl: cholecalciferol, vitamin D3, 25 mcg (1,000 unit) capsule, Take 2 (two) capsules (2,000 Units total) by mouth daily ., Disp: , Rfl: clotrimazole-betamethasone (LOTRISONE) cream, Apply topically 2 (two) times a day ., Disp: 90 g, Rfl: 3 ezetimibe (ZETIA) 10 mg tablet, ezetimibe 10 mg tablet 1 tab qd, Disp: , Rfl: finasteride (PROSCAR) 5 mg tablet, Take 1 (one) tablet (5 mg total) by mouth daily ., Disp: 90 tablet, Rfl: 3 hydroCHLOROthiazide (HYDRODIURIL) 50 MG tablet, Take 1 (one) tablet (50 mg total) by mouth daily ., Disp: , Rfl: leflunomide (ARAVA) 10 MG tablet, Take 1 (one) tablet (10 mg total) by mouth daily ., Disp: , Rfl: lisinopriL (PRINIVIL,ZESTRIL) 10 MG tablet, Take 1 (one) tablet (10 mg total) by mouth daily ., Disp: , Rfl: metoprolol succinate (TOPROL-XL) 25 MG 24 hr tablet, Take 1 (one) tablet (25 mg total) by mouth daily ., Disp: , Rfl: montelukast (SINGULAIR) 10 mg tablet, every night at bedtime ., Disp: , Rfl: multivit-min/ferrous fumarate (MULTI VITAMIN ORAL), Take 1 tablet by mouth every night at bedtime ., Disp: , Rfl: omeprazole (PRILOSEC OTC) 20 MG tablet, Take 1 (one) tablet (20 mg total) by mouth ., Disp: , Rfl: omeprazole (PRILOSEC) 10 MG capsule, Take 2 (two) capsules (20 mg total) by mouth Taking twice weekly ., Disp: , Rfl: OneTouch Delica Plus Lancet 33 gauge Misc, USE LANCET TO CHECK GLUCOSE ONCE DAILY DIRECTED, Disp: , Rfl: OneTouch Ultra Blue Test Strip strips, USE STRIP TO CHECK GLUCOSE ONCE DAILY DIRECTED, Disp: , Rfl: potassium chloride (KLOR-CON) 8 MEQ CR tablet, , Disp: , Rfl: predniSONE (DELTASONE) 5 MG tablet, TAKE 3 TABLETS BY MOUTH ONCE DAILY FOR 7 DAYS, THEN 2 TABLETS ONCE DAILY FOR 7 DAYS, THEN 1 & 1/2 (ONE & ONE-HALF) TABLETS ONCE DAILY FOR 7 DAYS, THEN CONTINUE 1 TABLET ONCE DAILY, Disp: , Rfl: valsartan (DIOVAN) 160 MG tablet, , Disp: , Rfl: REVIEW OF SYSTEMS: CONSTITUTIONAL: No weight loss, malaise, or fatigue EYES: No changes in vision, no blurry vision EARS, NOSE, MOUTH, THROAT: No change in hearing, No difficulty swallowing. CARDIOVASCULAR: No chest pain or heart palpitations. RESPIRATORY: No difficulty breathing or wheezing. GI: No changes in bowel habit. No blood in his stool. : No dysuria, hematuria, or urinary tract infections. The rest as above in the HPI. MUSCULOSKELETAL: No joint pain or swelling. VASCULAR: No peripheral edema. No calf pain with exertion. NEURO: No changes in gait or sensation. SKIN: No rashes or lesions. PSYCHIATRIC: No depressive or suicidal thoughts PHYSICAL EXAM: CONSTITUTIONAL: VITAL SIGNS: Vitals: 10/06/22 1438 BP: 130/72 BP Location: Left arm Patient Position: Sitting BP Cuff Size: Adult Pulse: 73 Resp: 18 Temp: 98.4 F (36.9 C) TempSrc: Temporal SpO2: 97% Weight: 86.2 kg (190 lb) Height: 5' 9 GENERAL: Well appearing. No acute distress. EYES: PERRLA, EOMI EARS, NOSE, MOUTH, THROAT: mucous memebranes moist, trachea midline CARDIOVASCULAR: RRR, normal carotid pulse, no peripheral edema. ABDOMEN: Soft, nondistended, nontender. BACK: No CVA tenderness. : Deferred per patient MUSCULOSKELETAL: normal extremity ROM with no edema LYMPH: No cervical or supraclavicular lymphadenopathy NEURO: Normal gait, CN II-XII grossly intact PSYCHATRIC: A & O x3, mood and affect appropriate SKIN: No rashes, ulcers, or lesions visible DATA: IMAGIN05/05/21 CTU No urinary tract calculi. No solid soft tissue mass in the urinary tract. 12 mm right renal cysts along with other punctate hypodensities presumably tiny cysts. Marked prostatomegaly. Gland volume estimated at 176 mL LAB: 02/24/19 PSA 9.28 10/16/19 PSA 10.46 free 20% PSAD 0.088 01/28/18 PSA 8.58, free 24% 07/03/17 PSA 7.93, free 25% 01/02/17 PSA 11.58 Lab Results Component Value Date PSASCRN 3.89 (H) 04/07/2022 PSASCRN 4.83 (H) 08/11/2020 PSASCRN 5.49 (H) 08/11/2020 ASSESSMENT / PLAN: Problem List Items Addressed This Visit Genitourinary Benign prostatic hyperplasia Dx BPH/LUTS, 176 g, started finasteride 5 mg daily Oct 2019 and LUTS improved, pt satisfied. Continue finasteride Dx phimosis, balanitis. Taking topical lotrisone. Erythema resolved but pt notes phimosis. We discussed observation, topical therapy and circumcision Dx elevated PSA, usually 5-9, neg pbx x2 (01/13/13, 06/12/01), chronic prostatitis, 176 g, family hx plastic roller (brother). We discussed PSA testing guidelines. We discussed goals of PSA testing for a man in his 80s Plan is to continue finasteride and follow up in 6 months We discussed the different diagnoses Patient wants to pursue follow up in 6 months We discussed treatment options including:Rx @MYSIG@ documented in this encounter [facility] 06-06-2022 History of Present illness Narrative Patient presents for COVID booster. Denies any problems at this time. Tolerated injection well. 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 Patient defers surgical correction until a later time. Update glasses to maximize visual performance. R73.03 Prediabetes Comment: Examination shows no ocular diabetic complications today. Discussed need for optimal diabetes control to minimize chance of ocular complications. Advise patient to immediately report worsening in status or additional symptoms. Continue yearly dilated eye examinations. H40.003 Glaucoma suspect of both eyes Comment: Stable optic nerve appearance and Intraocular pressure's. Repeat OCT NFA and threshold Visual field's in one year. 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 Monitor. H52.223 Regular astigmatism of both eyes H52.12 Myopia of left eye H52.4 Presbyopia Comment: Myopic shift in glasses power due to cataract progression. Update glasses. I have confirmed and edited as necessary the relevant ophthalmic history, ROS, and the neuro exam findings as obtained by others. I have seen and examined Jaye Maya. I have discussed the case and the management of this patient's care with the Resident/Fellow, if applicable. I also have reviewed and agree with the assessment and plan as stated above and agree with all of its relevant components. 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 Patient defers surgical correction until a later time. Update glasses to maximize visual performance. R73.03 Prediabetes Comment: Examination shows no ocular diabetic complications today. Discussed need for optimal diabetes control to minimize chance of ocular complications. Advise patient to immediately report worsening in status or additional symptoms. Continue yearly dilated eye examinations. H40.003 Glaucoma suspect of both eyes Comment: Stable optic nerve appearance and Intraocular pressure's. Repeat OCT NFA and threshold Visual field's in one year. 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 Monitor. H52.223 Regular astigmatism of both eyes H52.12 Myopia of left eye H52.4 Presbyopia Comment: Myopic shift in glasses power due to cataract progression. Update glasses. I have confirmed and edited as necessary the relevant ophthalmic history, ROS, and the neuro exam findings as obtained by others. I have seen and examined Jaye Maya. I have discussed the case and the management of this patient's care with the Resident/Fellow, if applicable. I also have reviewed and agree with the assessment and plan as stated above and agree with all of its relevant components. 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 He denies symptoms of angina. I will continue medical therapy. Hypertension, essential Patient's blood pressure is well controlled on medical therapy. Continue current medical regimen. Mixed hyperlipidemia Last LDL was 60. Continue atorvastatin and Zetia. Follow-up: Return in about 1 year (around 01/31/2023). Chief Complaint: 1 year follow-up. Subjective History of Present Illness: Jaye Maya is a 87 y.o. male with a history of CAD status post LIZBET of the diagonal artery in 2008, hypertension and dyslipidemia. Patient denies any symptoms of angina or CHF. He denies any palpitations, lightheadedness or syncope. Patient's blood pressures under very good control at home. He does exercise without any problems. 11/2021-LDL-60 2008-cardiac cath-mild LAD, 90% mid diagonal 1, mild circumflex and RCA. LIZBET of the mid diagonal 1. 2009 echo EF 60%, no valvular abnormalities 04/25/2021-stress Cardiolite-EF 78%. No evidence of ischemia or infarction. Objective Imaging: I independently reviewed the EKG and agree with the interpretation(s) with the following comments. 01/31/20220033-DHY-Hgkml Bradycardia heart rate 58 -First degree A-V block ECG 12 Lead Final Result by Cinthya Barbour MD (01/31/2022 1344) Review of Systems: Review of systems performed by the medical accounting clerk, personally reviewed and viewable in the current patient encounter. Pertinent positive and negative findings detailed in HPI. HOME Medications: Current Outpatient Medications on File Prior to Visit Medication Sig aspirin 81 MG EC tablet Take 81 mg by mouth daily . atorvastatin (LIPITOR) 80 MG tablet atorvastatin 80 mg tablet cholecalciferol, vitamin D3, 25 mcg (1,000 unit) capsule Take 2,000 Units by mouth daily . ezetimibe (ZETIA) 10 mg tablet ezetimibe 10 mg tablet 1 tab qd finasteride (PROSCAR) 5 mg tablet Take 1 (one) tablet (5 mg total) by mouth daily . hydroCHLOROthiazide (HYDRODIURIL) 50 MG tablet Take 50 mg by mouth daily . metoprolol succinate (TOPROL-XL) 25 MG 24 hr tablet Take 25 mg by mouth daily . multivit-min/ferrous fumarate (MULTI VITAMIN ORAL) Take 1 tablet by mouth every night at bedtime . potassium chloride (KLOR-CON) 8 MEQ CR tablet valsartan (DIOVAN) 160 MG tablet clotrimazole-betamethasone (LOTRISONE) cream Apply topically 2 (two) times a day . (Patient not taking: Reported on 01/31/2022 .) lisinopriL (PRINIVIL,ZESTRIL) 10 MG tablet Take 1 tablet by mouth daily . montelukast (SINGULAIR) 10 mg tablet every night at bedtime . omeprazole (PRILOSEC OTC) 20 MG tablet Take 20 mg by mouth . omeprazole (PRILOSEC) 10 MG capsule Take 20 mg by mouth Taking twice weekly . OneTouch Delica Plus Lancet 33 gauge Misc USE LANCET TO CHECK GLUCOSE ONCE DAILY DIRECTED OneTouch Ultra Blue Test Strip strips USE STRIP TO CHECK GLUCOSE ONCE DAILY DIRECTED No current facility-administered medications on file prior to visit. Vital Signs: BP 129/78 (BP Location: Left arm, Patient Position: Sitting, BP Cuff Size: Adult) Pulse 65 Ht 5' 9 Wt 83 kg (183 lb) BMI 27.02 kg/m Physical Exam Neck: Vascular: No carotid bruit. Cardiovascular: Rate and Rhythm: Normal rate and regular rhythm. Heart sounds: No murmur heard. Pulmonary: Effort: Pulmonary effort is normal. Breath sounds: No wheezing or rales. Musculoskeletal: Right lower leg: No edema. Left lower leg: No edema. Labs: I personally reviewed and interpreted the labs documented below. No results found for: CHOL, LDLCALC, LDLDIRECT, TRIG, HDL Creatinine clearance cannot be calculated (Patient's most recent lab result is older than the maximum 14 days allowed.) Underground Utility Locator: No documented in this encounter [facility] 01-31-2022 Evaluation + Plan note Associated Problem(s): Mixed hyperlipidemia Last LDL was 60. Continue atorvastatin and Zetia. [facility] 01-31-2022 Evaluation + Plan note Associated Problem(s): Hypertension, essential Patient's blood pressure is well controlled on medical therapy. Continue current medical regimen. 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 He denies symptoms of angina. I will continue medical therapy. [facility] 01-31-2022 Miscellaneous Notes Associated Problem(s): Mixed hyperlipidemia Last LDL was 60. Continue atorvastatin and Zetia. Associated Problem(s): Hypertension, essential Patient's blood pressure is well controlled on medical therapy. Continue current medical regimen. 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 He denies symptoms of angina. I will continue medical therapy. documented in this encounter [facility] 01-05-2022 History of Present illness Narrative Patient presents for COVID booster. Denies any problems at this time. Tolerated injection well. Serene Ramírez LPN documented in this encounter [facility] 10-24-2021 History of Present illness Narrative Gel-One injection left knee LOT # [id number] EXP 03/21/2023 Keri Echeverria Ma Associated Order(s): Large Joint Arthro/Inj: L knee joint Junior Cadet MD Department of Orthopaedics Orthopaedics [address] [place] [id number] Dept: [phone] Dept October 24, 2021 CHIEF COMPLAINT: Follow Up of the Left Knee and 11 months post visit with Sola (Gel One injection given left knee) HPI AMB ROOMING INTAKE FLOWSHEET DATA Risk Screening Do you have concerns about personal safety or safety in the home?: No Patient states he has no pain today. He is able to exercise on his bike with no pain but when he gets on the treadmill to walk that is when is left knee is painful. Injection given by Sola helped but not as well as Euflexxa injections in the past. X-rays done today at [facility]. ASSESSMENT: M25.562, G89.29 Chronic pain of left knee (primary encounter diagnosis) M17.12 Primary osteoarthritis of left knee PLAN: Repeat gel One Mr. Jaye Maya was advised as to contrast therapies and/or to take analgesics/anti-inflammatories as needed and all contraindications were reviewed. OBJECTIVE: Mr. Jaye Maya is a pleasant 86 year old in no apparent distress. Gen:There were no vitals taken for this visit. Large Joint Arthro/Inj: L knee joint 10/24/2021 1:28 PM The procedure site was prepped in the usual sterile fashion. Site: L knee joint Outcome: Tolerated well, no immediate complications Post-injection instructions were reviewed with the patient and the patient voiced understanding of these instructions. Imaging: IMPRESSION: Osteoarthritis, left greater than right, as described. Senior Game Developer: LIYA Transcribe Date/Time: Oct 24 2021 1:13P Dictated by : BERNARD MATT MD This examination was interpreted and the report reviewed and electronically signed by: BERNARD MATT MD on Oct 24 2021 1:14PM EST Results-Findings * * *Final Report* * * DATE OF EXAM: Oct 24 2021 12:43PM WRX [id number] - XR KNEE 4V AP/PA BOTH+LAT/ADRIEL LT / PROCEDURE REASON: Left knee pain, unspecified chronicity * * * * Physician Interpretation * * * * CLINICAL INDICATION: Knee pain TECHNIQUE: AP/PA/merchant radiographs of both knees and lateral radiograph of the left knee COMPARISON: Radiograph dated March 03, 2019 FINDINGS: Left knee: No suprapatellar joint effusion. No acute fracture or dislocation. Moderate to severe medial compartmental joint space narrowing with subchondral sclerosis. Mild lateral compartmental joint space narrowing. Mild patellofemoral compartmental joint space narrowing. Small tricompartmental osteophyte production. Right knee: No acute fracture or dislocation. Moderate medial compartmental joint space narrowing. Mild patellofemoral compartmental joint space narrowing. Miniscule medial and patellofemoral compartmental osteophyte production. Supporting Subjective Information Below: Past Surgical History: PAST SURGICAL HISTORY Procedure Laterality Date COLONOSCOPY FLX DX W/COLLJ SPEC WHEN PFRMD 03/10/2011 Colonoscopy COLONOSCOPY FLX DX W/COLLJ SPEC WHEN PFRMD 07/05/2021 ESOPHAGOGASTRODUODENOSCOPY TRANSORAL DIAGNOSTIC 07/05/2021 HERNIA REPAIR HX x2 PAST SURGICAL HISTORY OF 12/2008 Heart stent PAST SURGICAL HISTORY OF skin graft left 4th finger PAST SURGICAL HISTORY OF left thumb TONSILLECTOMY HX TONSILLECTOMY PRIMARY/SECONDARY <AGE 13 Tonsillectomy alone Medications: Current Outpatient Medications Medication Sig valsartan (DIOVAN) 160 mg tablet Take 160 mg by mouth once daily. omeprazole (PRILOSEC) 20 mg capsule Take 2 capsules by mouth once daily. (Patient taking differently: Take 40 mg by mouth once daily. Takes 1 tablet twice a week ) finasteride (PROSCAR) 5 mg tablet Take 5 mg by mouth. ezetimibe (ZETIA) 10 mg tablet Take 10 mg by mouth once daily. atorvastatin (LIPITOR) 80 mg tablet Take 80 mg by mouth once daily. hydroCHLOROthiazide (HYDRODIURIL, ESIDRIX) 50 mg tablet Take 50 mg by mouth once daily. Cholecalciferol, Vitamin D3, (VITAMIN D-3) 2,000 unit cap Take by mouth. metoprolol succinate XL (TOPROL XL) 50 mg ORAL 24 hr tablet Take 25 mg by mouth once daily. simvastatin 40 mg ORAL tablet Take 40 mg by mouth daily at bedtime. Potassium Chloride (KLOR-CON 8) 8 mEq ORAL tablet Take 8 mEq by mouth once daily. ASPIRIN (ASPIR-81 ORAL) Take 1 tablet by mouth once daily. MULTI-VITAMIN ORAL Take 1 tablet by mouth once daily. sodium sulfate-potassium sulfate-magnesium sulfate (SUPREP BOWEL PREP KIT) 17.5-3.13-1.6 gram oral liquid Refer to instructions given by your provider. lisinopril (ZESTRIL, PRINIVIL) 10 mg tablet Take 10 mg by mouth once daily. No current facility-administered medications for this visit. Allergies: Patient has no known allergies. ROS: General (negative for fatigue, malaise, weight loss/gain) HEENT (negative for headache, earache, recent vision changes, sinus pain, sore throat) Respiratory (no recent shortness of breath, hemoptysis) CV (negative for chest tightness, palpitations) Musculoskeletal (see HPI) Psych (no depression, anxiety) Junior Cadet MD documented in this encounter [facility] 10-24-2021 History of Present illness Narrative Radiology Service Progress Note PATIENT NAME: Jaye Maya DATE OF SERVICE: October 24, 2021 TIME: 12:28 PM PATIENT IDENTITY VERIFICATION COMPLETED USING TWO (2) IDENTIFIERS: Name and Date of confirmed by patient verbally. FALL SCREENING: Has the patient had 2 falls in the last year or 1 fall with injury or currently using an Ambulatory Assistive Device (Walker, Cane, Wheelchair, Crutches, etc.)? No PATIENT GENDER DATA: Male PATIENT RELEVANT IMPLANT DATA REVIEWED: Not Applicable RADIOLOGY DEPARTMENT: General X-ray: Exam(s) Completed: Lower Extremity X-Ray(s): Knee, AP / Lat / Tunne / Merchant Left and Wt. Bearing PERIPHERAL IV DATA: Not applicable SIGNED BY: RT Isaac(R) October 24, 2021 12:28 PM documented in this encounter [facility] 04-29-2021 History of Present illness Narrative Examination chaperoned by Raiza Alonzo. Pt declined edging machine catcher for examination preparation. CYSTOSCOPY 04/29/2021 Sterile prep and drape Local lidocaine 2% gel Urethra normal Prostate normal, large volume BPH and large intravesical lobes Bladder normal, no cancer or stones Ureters normal Pt tolerated all well Results discussed and explained to pt Boy Newman DATE: 04/29/2021 CHIEF COMPLAINT: Chief Complaint Patient presents with Cystoscopy HISTORY OF PRESENT ILLNESS: Jaye Maya is a 86 y.o. male with prior history of elevated PSA and BPH and recent hematuria. Initially seen by and referred by Hugo Cunningham MD. Duration: 21 years Aggravating Factors: aspirin Alleviating Factors: Rx Associated Symptoms: denies Systemic:The patient denies any weight loss, malaise, fatigue, pain, or night sweats. Urinary: The patient reports normal FOS and urinary function. Patient denies urinary dysuria, frequency, urgency, nocturia, hematuria, or incontinence. Bowel: No constipation, diarrhea, or fecal incontinence Dx elevated PSA, usually 5-9, neg pbx x2 (01/13/13, 06/12/01), chronic prostatitis, 118.76 g, family hx plastic roller (brother). Plan PSA Dx gross hematuria 1 month ago. Treated for prostatitis though no infection seen in urine. Plan CTU and cysto Dx BPH/LUTS, 118.76 g, started finasteride 5 mg daily Oct 2019 and LUTS improved, pt satisfied. Continue finasteride Dx phimosis, balanitis. Plan topical lotrisone HISTORY: PMH Past Medical History: Diagnosis Date Coronary artery disease Hyperlipemia Hypertension PSH Past Surgical History: Procedure Laterality Date CARDIAC CATHETERIZATION CARPAL TUNNEL RELEASE Bilateral CORONARY STENT PLACEMENT HERNIA REPAIR x2 SH Social History Socioeconomic History Marital status: Spouse name: Not on file Number of children: Not on file Years of education: Not on file Highest education level: Not on file Occupational History Not on file Tobacco Use Smoking status: Never Smoker Smokeless tobacco: Never Used Vaping Use Vaping Use: Never used Substance and Sexual Activity Alcohol use: Not Currently Drug use: Never Sexual activity: Not on file Other Topics Concern Not on file Social History Narrative Not on file Social Determinants of Health Financial Resource Strain: Difficulty of Paying Living Expenses: Not on file Food Insecurity: Worried About Running Out of Food in the Last Year: Not on file Ran Out of Food in the Last Year: Not on file Transportation Needs: Lack of Transportation (Medical): Not on file Lack of Transportation (Non-Medical): Not on file Physical Activity: Days of Exercise per Week: Not on file Minutes of Exercise per Session: Not on file Stress: Feeling of Stress : Not on file Social Connections: Frequency of Communication with Friends and Family: Not on file Frequency of Social Gatherings with Friends and Family: Not on file Attends Restorationism Services: Not on file Active Member of Clubs or Organizations: Not on file Attends Club or Organization Meetings: Not on file Marital Status: Not on file Housing Stability: Unable to Pay for Housing in the Last Year: Not on file Number of Places Lived in the Last Year: Not on file Unstable Housing in the Last Year: Not on file Family History Problem Relation Age of Onset Cancer Brother Prostate, 2 brothers Hypertension Sister Cancer Sister ALLERGIES AND MEDICATIONS Allergies: Celecoxib Current Outpatient Medications: aspirin 81 MG EC tablet, Take 81 mg by mouth daily ., Disp: , Rfl: atorvastatin (LIPITOR) 80 MG tablet, atorvastatin 80 mg tablet, Disp: , Rfl: cholecalciferol, vitamin D3, (VITAMIN D3) 1,000 unit capsule, Take 2,000 Units by mouth daily ., Disp: , Rfl: clotrimazole-betamethasone (LOTRISONE) cream, Apply topically 2 (two) times a day ., Disp: 30 g, Rfl: 0 ezetimibe (ZETIA) 10 mg tablet, ezetimibe 10 mg tablet 1 tab qd, Disp: , Rfl: finasteride (PROSCAR) 5 mg tablet, Take 1 (one) tablet (5 mg total) by mouth daily ., Disp: 90 tablet, Rfl: 3 hydroCHLOROthiazide (HYDRODIURIL) 50 MG tablet, Take 50 mg by mouth daily ., Disp: , Rfl: lisinopriL (PRINIVIL,ZESTRIL) 10 MG tablet, Take 1 tablet by mouth daily ., Disp: , Rfl: metoprolol succinate (TOPROL-XL) 25 MG 24 hr tablet, Take 25 mg by mouth daily ., Disp: , Rfl: montelukast (SINGULAIR) 10 mg tablet, every night at bedtime ., Disp: , Rfl: multivit-min/ferrous fumarate (MULTI VITAMIN ORAL), Take 1 tablet by mouth every night at bedtime ., Disp: , Rfl: omeprazole (PRILOSEC OTC) 20 MG tablet, Take 20 mg by mouth ., Disp: , Rfl: omeprazole (PRILOSEC) 10 MG capsule, Take 20 mg by mouth Taking twice weekly ., Disp: , Rfl: OneTouch Delica Plus Lancet 33 gauge Misc, USE LANCET TO CHECK GLUCOSE ONCE DAILY DIRECTED, Disp: , Rfl: OneTouch Ultra Blue Test Strip strips, USE STRIP TO CHECK GLUCOSE ONCE DAILY DIRECTED, Disp: , Rfl: potassium chloride (KLOR-CON) 8 MEQ CR tablet, , Disp: , Rfl: REVIEW OF SYSTEMS: CONSTITUTIONAL: No weight loss, malaise, or fatigue EYES: No changes in vision, no blurry vision EARS, NOSE, MOUTH, THROAT: No change in hearing, No difficulty swallowing. CARDIOVASCULAR: No chest pain or heart palpitations. RESPIRATORY: No difficulty breathing or wheezing. GI: No changes in bowel habit. No blood in his stool. : No dysuria, hematuria, or urinary tract infections. The rest as above in the HPI. MUSCULOSKELETAL: No joint pain or swelling. VASCULAR: No peripheral edema. No calf pain with exertion. NEURO: No changes in gait or sensation. SKIN: No rashes or lesions. PSYCHIATRIC: No depressive or suicidal thoughts PHYSICAL EXAM: CONSTITUTIONAL: VITAL SIGNS: Vitals: 04/29/21 1057 BP: 134/74 BP Location: Left arm Patient Position: Sitting BP Cuff Size: Adult Pulse: 63 Temp: 98.2 F (36.8 C) GENERAL: Well appearing. No acute distress. EYES: PERRLA, EOMI EARS, NOSE, MOUTH, THROAT: mucous memebranes moist, trachea midline CARDIOVASCULAR: RRR, normal carotid pulse, no peripheral edema. ABDOMEN: Soft, nondistended, nontender. BACK: No CVA tenderness. : Deferred per patient MUSCULOSKELETAL: normal extremity ROM with no edema LYMPH: No cervical or supraclavicular lymphadenopathy NEURO: Normal gait, CN II-XII grossly intact PSYCHATRIC: A & O x3, mood and affect appropriate SKIN: No rashes, ulcers, or lesions visible DATA: IMAGING: LAB:10/16/19 PSA 10.46 PSAD 0.088 01/28/18 PSA 8.58, free 24% 07/03/17 PSA 7.93, free 25% 01/02/17 PSA 11.58 Lab Results Component Value Date PSASCRN 4.83 (H) 08/11/2020 PSASCRN 5.49 (H) 08/11/2020 PSASCRN 9.28 (H) 02/24/2019 ASSESSMENT / PLAN: Problem List Items Addressed This Visit Genitourinary Gross hematuria Dx gross hematuria 1 month ago. Treated for prostatitis though no infection seen in urine. Plan CTU. Cysto today was normal with large volume intravesical BPH Dx elevated PSA, usually 5-9, neg pbx x2 (01/13/13, 06/12/01), chronic prostatitis, 118.76 g, family hx plastic roller (brother). Plan PSA Dx BPH/LUTS, 118.76 g, started finasteride 5 mg daily Oct 2019 and LUTS improved, pt satisfied. Continue finasteride Dx phimosis, balanitis. Plan topical lotrisone We discussed the differential diagnosis Patient wants to pursue evaluation with: CTU We discussed treatment options @[facility] documented in this encounter [facility] 04-29-2021 Miscellaneous Notes Associated Problem(s): Gross hematuria Dx gross hematuria 1 month ago. Treated for prostatitis though no infection seen in urine. Plan CTU. Cysto today was normal with large volume intravesical BPH Dx elevated PSA, usually 5-9, neg pbx x2 (01/13/13, 06/12/01), chronic prostatitis, 118.76 g, family hx plastic roller (brother). Plan PSA Dx BPH/LUTS, 118.76 g, started finasteride 5 mg daily Oct 2019 and LUTS improved, pt satisfied. Continue finasteride Dx phimosis, balanitis. Plan topical lotrisone documented in this encounter [facility] 04-19-2021 History of Present illness Narrative General Cardiology Heart & Vascular [facility] 04/19/2021 Yash Jovel, DO [address] [address] Patient: Jaye Maya Date of : 1935 (86 y.o.) Referring Provider: Hugo Cunningham* PCP: Hugo Cunningham MD Assessment & Plan Fatigue Exertional symptoms status new. We will need to rule out anginal equivalent. We will schedule a stress Cardiolite for ischemia evaluation. Patient is to refrain from any heavy exertion until his cardiac status is better assessed. Hypertension, essential Appears stable at home. Continue current medical regimen. 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 Continue risk factor management. Follow-up: No follow-ups on file. Chief Complaint: Follow-up Subjective History of Present Illness: Jaye Maya is a 86 y.o. male was seen a few months ago by Dr. 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 He has since developed symptoms of increasing exertional fatigue. 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 No other constitutional symptoms. Objective Imaging: I independently reviewed the EKG and agree with the interpretation(s) with the following comments. ECG 12 Lead Final Result by Yash Jovel DO (04/19/2021 4572) Review of Systems: Review of systems performed by the medical accounting clerk, personally reviewed and viewable in the current patient encounter. Pertinent positive and negative findings detailed in HPI. Past Medical History: Diagnosis Date Coronary artery disease Hyperlipemia Hypertension Past Surgical History: Procedure Laterality Date CARDIAC CATHETERIZATION CARPAL TUNNEL RELEASE Bilateral CORONARY STENT PLACEMENT HERNIA REPAIR x2 Family History Problem Relation Age of Onset Cancer Brother Prostate, 2 brothers Hypertension Sister Cancer Sister Social History Tobacco Use Smoking Status Never Smoker Smokeless Tobacco Never Used Allergies: Patient has no known allergies. HOME Medications: Current Outpatient Medications on File Prior to Visit Medication Sig aspirin 81 MG EC tablet Take 81 mg by mouth daily . atorvastatin (LIPITOR) 80 MG tablet atorvastatin 80 mg tablet cholecalciferol, vitamin D3, (VITAMIN D3) 1,000 unit capsule Take 2,000 Units by mouth daily . clotrimazole-betamethasone (LOTRISONE) cream Apply topically 2 (two) times a day . ezetimibe (ZETIA) 10 mg tablet ezetimibe 10 mg tablet 1 tab qd finasteride (PROSCAR) 5 mg tablet Take 1 (one) tablet (5 mg total) by mouth daily . hydroCHLOROthiazide (HYDRODIURIL) 50 MG tablet Take 50 mg by mouth daily . lisinopriL (PRINIVIL,ZESTRIL) 10 MG tablet Take 1 tablet by mouth daily . metoprolol succinate (TOPROL-XL) 25 MG 24 hr tablet Take 25 mg by mouth daily . multivit-min/ferrous fumarate (MULTI VITAMIN ORAL) Take 1 tablet by mouth every night at bedtime . omeprazole (PRILOSEC) 10 MG capsule Take 20 mg by mouth Taking twice weekly . potassium chloride (KLOR-CON) 8 MEQ CR tablet OneTouch Delica Plus Lancet 33 gauge Mis USE LANCET TO CHECK GLUCOSE ONCE DAILY DIRECTED OneTouch Ultra Blue Test Strip strips USE STRIP TO CHECK GLUCOSE ONCE DAILY DIRECTED [DISCONTINUED] potassium chloride in 0.9% NaCl 10 mEq/100 mL 8 mEq . No current facility-administered medications on file prior to visit. Physical Exam: Vital Signs: BP (!) 152/79 (BP Location: Left arm, Patient Position: Sitting) Pulse 70 Ht 5' 9 Wt 86.2 kg (190 lb) BMI 28.06 kg/m Constitutional: Alert, well appearing, not in distress.? Eyes: Conjunctivae/corneas clear. Lungs: Clear to auscultation, no wheezes, rales or rhonchi. Cardiovascular: Normal rate and regular rhythm, S1 and S2 normal, no murmurs noted, no carotid bruit, no pedal edema, no JVD. Abdomen: Soft, nontender with normal active bowel sounds; no masses or organomegaly. Skin: Normal coloration and turgor; no rashes or lesions. Musculoskeletal: Normal Range of Motion (ROM) Psych: Oriented to time, person, and place; appropriate mood. No results found for: CHOL, LDLCALC, LDLDIRECT, TRIG, HDL Review of Systems Constitutional: Positive for malaise/fatigue. Negative for diaphoresis, weight gain and weight loss. HENT: Negative for hearing loss, nosebleeds and tinnitus. Eyes: Negative for blurred vision and visual disturbance. Cardiovascular: Negative for chest pain, claudication, cyanosis, dyspnea on exertion, irregular heartbeat, leg swelling, near-syncope, orthopnea, palpitations, paroxysmal nocturnal dyspnea and syncope. Respiratory: Negative for hemoptysis, shortness of breath and snoring. Endocrine: Negative for cold intolerance and heat intolerance. Hematologic/Lymphatic: Does not bruise/bleed easily. Skin: Negative for flushing, poor wound healing and rash. Musculoskeletal: Negative for back pain, muscle weakness and myalgias. Gastrointestinal: Negative for abdominal pain, change in bowel habit, melena, nausea and vomiting. Genitourinary: Negative for decreased libido and hematuria. Neurological: Negative for loss of balance and numbness. Psychiatric/Behavioral: Negative for memory loss. The patient is not nervous/anxious. documented in this encounter [facility] 04-19-2021 Miscellaneous Notes Associated Problem(s): 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 History of coronary artery disease status post PCI to the diagonal in 2008. Continue risk factor management. Associated Problem(s): Hypertension, essential Appears stable at home. Continue current medical regimen. Associated Problem(s): Fatigue Exertional symptoms status new. We will need to rule out anginal equivalent. We will schedule a stress Cardiolite for ischemia evaluation. Patient is to refrain from any heavy exertion until his cardiac status is better assessed. documented in this encounter [facility] 04-19-2021 Instructions Dayanara Mejia RN - 04/19/2021 3:11 PM EDT Medication changes: none Testing ordered: stress test (After you have had your test and Dr. Jovel reviews it, I will contact you with results. If you do not hear from me within 5 business days, please contact our office to make me aware.) To reach Dr. Jovel's nurse Jen directly, please call [phone]. You will typically hear back from me within the next 24 business hours. Please note that this voicemail is NOT checked after 4pm, on weekends, or on holidays. The main office number is [phone] should you have problems during those times and need to speak with the radio station operator physician. Office Address: [address] [place] [address] Scheduling: Please call , Option #1 to schedule or reschedule an appointment. Please call if you are unable to keep your appointment. No show appointments are tracked and unfortunately could result in your dismissal from our practice. Prescription Refill Directions: We will refill cardiac medications as long as you are a current patient. When requesting a refill, be sure to do this ahead of time so that you do not run out of medication. You should request your refill one week ahead of time for a local pharmacy and three weeks for a mail order pharmacy. Please send a message through your [employer] or call Jen's direct line to leave a detailed message for a refill. IMPORTANT INFORMATION FOR A QUICK REFILL RESPONSE TIME: Please leave your full name with spelling Date of Your call back number The medication name with spelling and with directions on how it is prescribed for you to take, The pharmacy of your choice with the pharmacy address or phone number. Remember to specify in your message that it is an urgent refill request if you are out of or if you are going to run out of medication in the next couple days. You will not hear back from me regarding your refill request unless there is an issue. If your pharmacy does not notify you that a prescription is ready for you, please call the pharmacy in the next 1-2 days to see if they have the prescription ready for you. Billing Questions: Call our Billing Department at [phone]. EXERCISE NUCLEAR STRESS TEST What is it? The Exercise Nuclear Stress Test is a diagnostic exam used to determine if the heart muscle is getting the blood supply it needs. Preparation / Instructions: 1. Do not eat or drink anything after midnight the night prior to your test except for water. 2. Do not smoke the morning of the test. 3. Insulin-dependent diabetics may take of your usual morning dose of insulin. 4. Unless otherwise directed by your physician, take all of your morning medications with the exception of your oral diabetic medications--please hold these the morning of the procedure. (Note* Xanthene derivates, such as Theophylline, Ajay-dur, or Ajay-24, and Persantine (dipyridamole) must be held for 3 days prior to your test) 5. Bring your morning medications and an accurate medication list. 6. Wear comfortable clothes and comfortable shoes. A sweater is suggested for the waiting room. 7. No caffeine, decaf, or caffeine products, such as chocolate, can be take for 24 hours prior to having your test. If you are taking rtej-qty-brknxvj medications, such as cold tablets or pain relievers, make sure that caffeine is not an ingredient. Your test will be cancelled if you have consumed any caffeine. 8. Bring a snack. You will be asked to eat after the stress portion of the test. 9. This test involves a lot of waiting. You may want to bring a book, paper, magazine, etc. What to expect We will obtain a brief history emphasizing current symptoms and pertinent family history. A small intravenous (IV) line is inserted into your arm and electrodes are attached to your chest. The first dose of imaging agent is injected through the IV. Resting images are obtained at least 60 minutes later with the nuclear imaging camera. A stress test is performed on a treadmill with an EKG monitored by a physician. A second dose of imaging agent is injected in the IV, followed by a second set of images under the nuclear camera 20 minutes after the infusion. This test takes about 4-6 hours. documented in this encounter [facility] 04-04-2021 Miscellaneous Notes Associated Problem(s): Elevated PSA Dx elevated PSA, usually 5-9, neg pbx x2 (01/13/13, 06/12/01), chronic prostatitis, 118.76 g, family hx plastic roller (brother). Plan PSA Associated Problem(s): Balanitis Dx phimosis, balanitis. Plan topical lotrisone Associated Problem(s): Gross hematuria Dx gross hematuria 1 month ago. Treated for prostatitis though no infection seen in urine. Plan CTU and cysto Associated Problem(s): Benign prostatic hyperplasia Dx BPH/LUTS, 118.76 g, started finasteride 5 mg daily Oct 2019 and LUTS improved, pt satisfied. Continue finasteride documented in this encounter [facility] 04-04-2021 History of Present illness Narrative DATE: 04/04/2021 CHIEF COMPLAINT: Chief Complaint Patient presents with Follow-up 6 month f/u HISTORY OF PRESENT ILLNESS: Jaye Maya is a 86 y.o. male with prior history of elevated PSA and BPH and recent hematuria Initially seen by and referred by me from [facility]. Duration: 21 years Aggravating Factors: none Alleviating Factors: Rx Associated Symptoms: denies Systemic:The patient denies any weight loss, malaise, fatigue, pain, or night sweats. Urinary: The patient reports normal FOS and urinary function. Patient denies urinary dysuria, frequency, urgency, nocturia, hematuria, or incontinence. Bowel: No constipation, diarrhea, or fecal incontinence Dx BPH/LUTS, 118.76 g, started finasteride 5 mg daily Oct 2019 and LUTS improved, pt satisfied Dx elevated PSA, usually 5-9, neg pbx x2 (01/13/13, 06/12/01), chronic prostatitis, 118.76 g, family hx plastic roller (brother). Dx gross hematuria 1 month ago. Treated for prostatitis though no infection seen in urine Dx phimosis, balanitis HISTORY: PMH Past Medical History: Diagnosis Date Coronary artery disease Hyperlipemia Hypertension PS Past Surgical History: Procedure Laterality Date CARDIAC CATHETERIZATION CARPAL TUNNEL RELEASE Bilateral CORONARY STENT PLACEMENT HERNIA REPAIR x2 SH Social History Socioeconomic History Marital status: Spouse name: Not on file Number of children: Not on file Years of education: Not on file Highest education level: Not on file Occupational History Not on file Tobacco Use Smoking status: Never Smoker Smokeless tobacco: Never Used Vaping Use Vaping Use: Never used Substance and Sexual Activity Alcohol use: Not Currently Drug use: Never Sexual activity: Not on file Other Topics Concern Not on file Social History Narrative Not on file Social Determinants of Health Financial Resource Strain: Difficulty of Paying Living Expenses: Not on file Food Insecurity: Worried About Running Out of Food in the Last Year: Not on file Ran Out of Food in the Last Year: Not on file Transportation Needs: Lack of Transportation (Medical): Not on file Lack of Transportation (Non-Medical): Not on file Physical Activity: Days of Exercise per Week: Not on file Minutes of Exercise per Session: Not on file Stress: Feeling of Stress : Not on file Social Connections: Frequency of Communication with Friends and Family: Not on file Frequency of Social Gatherings with Friends and Family: Not on file Attends Restorationism Services: Not on file Active Member of Clubs or Organizations: Not on file Attends Club or Organization Meetings: Not on file Marital Status: Not on file Housing Stability: Unable to Pay for Housing in the Last Year: Not on file Number of Places Lived in the Last Year: Not on file Unstable Housing in the Last Year: Not on file Family History Problem Relation Age of Onset Cancer Brother Prostate, 2 brothers Hypertension Sister Cancer Sister ALLERGIES AND MEDICATIONS Allergies: Patient has no known allergies. Current Outpatient Medications: aspirin 81 MG EC tablet, Take 81 mg by mouth daily ., Disp: , Rfl: atorvastatin (LIPITOR) 80 MG tablet, atorvastatin 80 mg tablet, Disp: , Rfl: cholecalciferol, vitamin D3, (VITAMIN D3) 1,000 unit capsule, Take 2,000 Units by mouth daily ., Disp: , Rfl: ezetimibe (ZETIA) 10 mg tablet, ezetimibe 10 mg tablet 1 tab qd, Disp: , Rfl: finasteride (PROSCAR) 5 mg tablet, Take 1 (one) tablet (5 mg total) by mouth daily ., Disp: 90 tablet, Rfl: 3 hydroCHLOROthiazide (HYDRODIURIL) 50 MG tablet, Take 50 mg by mouth daily ., Disp: , Rfl: lisinopriL (PRINIVIL,ZESTRIL) 10 MG tablet, Take 1 tablet by mouth daily ., Disp: , Rfl: metoprolol succinate (TOPROL-XL) 25 MG 24 hr tablet, Take 25 mg by mouth daily ., Disp: , Rfl: multivit-min/ferrous fumarate (MULTI VITAMIN ORAL), Take 1 tablet by mouth every night at bedtime ., Disp: , Rfl: omeprazole (PRILOSEC) 10 MG capsule, Take 20 mg by mouth Taking twice weekly ., Disp: , Rfl: OneTouch Delica Plus Lancet 33 gauge Misc, USE LANCET TO CHECK GLUCOSE ONCE DAILY DIRECTED, Disp: , Rfl: OneTouch Ultra Blue Test Strip strips, USE STRIP TO CHECK GLUCOSE ONCE DAILY DIRECTED, Disp: , Rfl: potassium chloride (KLOR-CON) 8 MEQ CR tablet, , Disp: , Rfl: potassium chloride in 0.9% NaCl 10 mEq/100 mL, 8 mEq ., Disp: , Rfl: clotrimazole-betamethasone (LOTRISONE) cream, Apply topically 2 (two) times a day ., Disp: 30 g, Rfl: 0 REVIEW OF SYSTEMS: CONSTITUTIONAL: No weight loss, malaise, or fatigue EYES: No changes in vision, no blurry vision EARS, NOSE, MOUTH, THROAT: No change in hearing, No difficulty swallowing. CARDIOVASCULAR: No chest pain or heart palpitations. RESPIRATORY: No difficulty breathing or wheezing. GI: No changes in bowel habit. No blood in his stool. : No dysuria, hematuria, or urinary tract infections. The rest as above in the HPI. MUSCULOSKELETAL: No joint pain or swelling. VASCULAR: No peripheral edema. No calf pain with exertion. NEURO: No changes in gait or sensation. SKIN: No rashes or lesions. PSYCHIATRIC: No depressive or suicidal thoughts PHYSICAL EXAM: CONSTITUTIONAL: VITAL SIGNS: Vitals: 04/04/21 1331 BP: 147/72 Pulse: 74 Weight: 87.1 kg (192 lb) Height: 5' 9 GENERAL: Well appearing. No acute distress. EYES: PERRLA, EOMI EARS, NOSE, MOUTH, THROAT: mucous memebranes moist, trachea midline CARDIOVASCULAR: RRR, normal carotid pulse, no peripheral edema. ABDOMEN: Soft, nondistended, nontender. BACK: No CVA tenderness. : phimosis, balanitis MUSCULOSKELETAL: normal extremity ROM with no edema LYMPH: No cervical or supraclavicular lymphadenopathy NEURO: Normal gait, CN II-XII grossly intact PSYCHATRIC: A & O x3, mood and affect appropriate SKIN: No rashes, ulcers, or lesions visible DATA: IMAGING: LAB:10/16/19 PSA 10.46 PSAD 0.088 01/28/18 PSA 8.58, free 24% 07/03/17 PSA 7.93, free 25% 01/02/17 PSA 11.58 Lab Results Component Value Date PSASCRN 4.83 (H) 08/11/2020 PSASCRN 5.49 (H) 08/11/2020 PSASCRN 9.28 (H) 02/24/2019 ASSESSMENT / PLAN: Problem List Items Addressed This Visit Genitourinary Benign prostatic hyperplasia Dx BPH/LUTS, 118.76 g, started finasteride 5 mg daily Oct 2019 and LUTS improved, pt satisfied. Continue finasteride Gross hematuria - Primary Dx gross hematuria 1 month ago. Treated for prostatitis though no infection seen in urine. Plan CTU and cysto Relevant Orders Cystoscopy CT Urogram Balanitis Dx phimosis, balanitis. Plan topical lotrisone Other Elevated PSA Dx elevated PSA, usually 5-9, neg pbx x2 (01/13/13, 06/12/01), chronic prostatitis, 118.76 g, family hx plastic roller (brother). Plan PSA Relevant Orders PSA Monitor We discussed the differential diagnosis for hematuria Patient wants to pursue evaluation with: CTU We discussed treatment options including:Rx for balanitis @[facility]@ documented in this encounter [facility] 01-17-2021 Miscellaneous Notes Associated Problem(s): Mixed hyperlipidemia Last LDL was 64 in April of last year. Continue atorvastatin and Zetia. Associated Problem(s): Hypertension, essential Blood pressures under very good control at home. Continue current medical regimen. 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 He denies symptoms of angina. I will continue medical therapy. documented in this encounter [facility] 01-17-2021 History of Present illness Narrative Review of Systems Constitutional: Negative for diaphoresis, malaise/fatigue, weight gain and weight loss. HENT: Negative for hearing loss, nosebleeds and tinnitus. Eyes: Negative for blurred vision and visual disturbance. Cardiovascular: Negative for chest pain, claudication, cyanosis, dyspnea on exertion, irregular heartbeat, leg swelling, near-syncope, orthopnea, palpitations, paroxysmal nocturnal dyspnea and syncope. Respiratory: Negative for hemoptysis, shortness of breath and snoring. Endocrine: Negative for cold intolerance and heat intolerance. Hematologic/Lymphatic: Does not bruise/bleed easily. Skin: Negative for flushing, poor wound healing and rash. Musculoskeletal: Negative for back pain, muscle weakness and myalgias. Gastrointestinal: Negative for abdominal pain, change in bowel habit, melena, nausea and vomiting. Genitourinary: Negative for decreased libido and hematuria. Neurological: Negative for loss of balance and numbness. Psychiatric/Behavioral: Negative for memory loss. The patient is not nervous/anxious. Interventional Cardiology Clinic Follow-up Heart & Vascular [facility] 01/17/2021 Cinthya Barbour MD [address] [address] Patient: Jaye Maya Date of : 1935 (85 y.o.) PCP: Hugo Cunningham MD Assessment & Plan 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 Patient with known CAD. He denies symptoms of angina. I will continue medical therapy. Hypertension, essential Blood pressures under very good control at home. Continue current medical regimen. Mixed hyperlipidemia Last LDL was 64 in April of last year. Continue atorvastatin and Zetia. Follow-up: Return in about 1 year (around 01/17/2022). Chief Complaint: 1 year follow-up. Subjective History of Present Illness: Jaye Maya is a 85 y.o. male with a history of CAD status post LIZBET of the diagonal artery in 2008, hypertension and dyslipidemia. Patient denies any symptoms of angina or CHF. He denies any palpitations, lightheadedness or syncope. Patient's blood pressures under very good control at home. He does exercise without any problems. 04/2020-LDL-64 2008-cardiac cath-mild LAD, 90% mid diagonal 1, mild circumflex and RCA. LIZBET of the mid diagonal 1. 2008 echo EF 60%, no valvular abnormalities 2011 stress nuclear study no ischemia EF 75%. Objective Imaging: I independently reviewed the EKG and agree with the interpretation(s) with the following comments. 01/17/[id number] Bradycardia -First degree A-V block Terri = 252 ECG 12 Lead Final Result by Cinthya Barbour MD (01/17/2021 1147) Review of Systems: Review of systems performed by the medical accounting clerk, personally reviewed and viewable in the current patient encounter. Pertinent positive and negative findings detailed in HPI. HOME Medications: Current Outpatient Medications on File Prior to Visit Medication Sig aspirin 81 MG EC tablet Take 81 mg by mouth daily . atorvastatin (LIPITOR) 80 MG tablet atorvastatin 80 mg tablet cholecalciferol, vitamin D3, (VITAMIN D3) 1,000 unit capsule Take 2,000 Units by mouth daily . ezetimibe (ZETIA) 10 mg tablet ezetimibe 10 mg tablet 1 tab qd finasteride (PROSCAR) 5 mg tablet Take 1 (one) tablet (5 mg total) by mouth daily . hydroCHLOROthiazide (HYDRODIURIL) 50 MG tablet Take 50 mg by mouth daily . lisinopriL (PRINIVIL,ZESTRIL) 10 MG tablet Take 1 tablet by mouth daily . metoprolol succinate (TOPROL-XL) 25 MG 24 hr tablet Take 25 mg by mouth daily . multivit-min/ferrous fumarate (MULTI VITAMIN ORAL) Take 1 tablet by mouth every night at bedtime . omeprazole (PRILOSEC) 10 MG capsule Take 20 mg by mouth Taking twice weekly . potassium chloride (KLOR-CON) 8 MEQ CR tablet OneTouch Delica Plus Lancet 33 gauge Misc USE LANCET TO CHECK GLUCOSE ONCE DAILY DIRECTED OneTouch Ultra Blue Test Strip strips USE STRIP TO CHECK GLUCOSE ONCE DAILY DIRECTED potassium chloride in 0.9% NaCl 10 mEq/100 mL 8 mEq . No current facility-administered medications on file prior to visit. Vital Signs: BP (!) 152/77 (BP Location: Right arm, Patient Position: Sitting) Pulse (!) 52 Ht 5' 9 Wt 87.1 kg (192 lb) BMI 28.35 kg/m Physical Exam Neck: Vascular: No carotid bruit. Cardiovascular: Rate and Rhythm: Normal rate. Heart sounds: No murmur heard. Pulmonary: Effort: Pulmonary effort is normal. Breath sounds: No wheezing or rales. Musculoskeletal: Right lower leg: No edema. Left lower leg: No edema. Labs: I personally reviewed and interpreted the labs documented below. No results found for: CHOL, LDLCALC, LDLDIRECT, TRIG, HDL Creatinine clearance cannot be calculated (No successful lab value found.) documented in this encounter [facility] Diagnosis 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- Primary Hypertension, essential Unspecified essential hypertension Mixed hyperlipidemia [facility] Diagnosis Gross hematuria- Primary Elevated PSA Elevated prostate specific antigen (PSA) Balanitis Balanoposthitis Benign prostatic hyperplasia, unspecified whether lower urinary tract symptoms present [facility] Diagnosis 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- Primary Hypertension, essential Unspecified essential hypertension [facility] Diagnosis Gross hematuria [facility] Diagnosis Chronic pain of left knee- Primary Pain in joint, lower leg Primary osteoarthritis of left knee Primary localized osteoarthrosis, lower leg [facility] Diagnosis Left knee pain, unspecified chronicity [facility] Diagnosis Need for vaccination- Primary Need for prophylactic vaccination and inoculation against unspecified single disease [facility] Diagnosis 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- Primary Hypertension, essential Unspecified essential hypertension Mixed hyperlipidemia [facility] Diagnosis Combined forms of age-related cataract of both eyes- Primary Other and combined forms of senile cataract Prediabetes Other abnormal glucose 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, 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 Regular astigmatism Myopia of left eye Myopia Presbyopia [facility] Diagnosis Benign prostatic hyperplasia with urinary obstruction [facility] Diagnosis Combined forms of age-related cataract of both eyes- Primary Other and combined forms of senile cataract documented in this encounter [facility] note* Diagnosis 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- Primary Hypertension, essential Unspecified essential hypertension Mixed hyperlipidemia documented in this encounter [facility] note* Diagnosis Status post cataract extraction and insertion of intraocular lens of right eye- Primary Status post cataract extraction and insertion of intraocular lens of left eye documented in this encounter [facility] note* Diagnosis Status post cataract extraction and insertion of intraocular lens of right eye- Primary Status post cataract extraction and insertion of intraocular lens of left eye 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, unspecified documented in this encounter [facility] note* Diagnosis Need for vaccination- Primary Need for prophylactic vaccination and inoculation against unspecified single disease documented in this encounter [facility] note* Diagnosis Glaucoma suspect of both eyes- Primary Preglaucoma, unspecified Status post cataract extraction and insertion of intraocular lens of left eye Status post cataract extraction and insertion of intraocular lens of right eye Dermatochalasis of both upper eyelids documented in this encounter [facility] note* Diagnosis Benign prostatic hyperplasia with lower urinary tract symptoms, symptom details unspecified documented in this encounter [facility] note* Diagnosis Cervicalgia- Primary Primary osteoarthritis of both knees Primary localized osteoarthrosis, lower leg Primary osteoarthritis of both hands Lumbar degenerative disc disease Degeneration of lumbar or lumbosacral intervertebral disc HNP (herniated nucleus pulposus), lumbar Displacement of lumbar intervertebral disc without myelopathy Disorder of bone and cartilage Disorder of bone and cartilage, unspecified Chronic pain of both wrists Chronic pain of both shoulders Pain in joint, shoulder region Bilateral hand pain Pain in limb Bilateral biceps tendonitis On statin therapy terminal superintendent (current) use of aspirin History of rheumatoid arthritis Personal history of arthritis History of osteoarthritis Personal history of arthritis Fatigue, unspecified type Vitamin D deficiency Unspecified vitamin D deficiency Dyslipidemia Other and unspecified hyperlipidemia Dorsalgia Pain in thoracic spine Chronic pain of both knees Encounter for screening for other viral diseases Ankylosing spondylitis, unspecified site of spine History of bilateral carpal tunnel release Cervicalgia Primary osteoarthritis of both knees Primary localized osteoarthrosis, lower leg Primary osteoarthritis of both hands Lumbar degenerative disc disease Degeneration of lumbar or lumbosacral intervertebral disc HNP (herniated nucleus pulposus), lumbar Displacement of lumbar intervertebral disc without myelopathy Disorder of bone and cartilage Disorder of bone and cartilage, unspecified Chronic pain of both wrists Chronic pain of both shoulders Pain in joint, shoulder region Bilateral hand pain Pain in limb Bilateral biceps tendonitis On statin therapy terminal superintendent (current) use of aspirin History of rheumatoid arthritis Personal history of arthritis History of osteoarthritis Personal history of arthritis Fatigue, unspecified type Vitamin D deficiency Unspecified vitamin D deficiency Dyslipidemia Other and unspecified hyperlipidemia Dorsalgia Pain in thoracic spine Chronic pain of both knees Cervicalgia Primary osteoarthritis of both knees Primary localized osteoarthrosis, lower leg Primary osteoarthritis of both hands Lumbar degenerative disc disease Degeneration of lumbar or lumbosacral intervertebral disc HNP (herniated nucleus pulposus), lumbar Displacement of lumbar intervertebral disc without myelopathy Disorder of bone and cartilage Disorder of bone and cartilage, unspecified Chronic pain of both wrists Chronic pain of both shoulders Pain in joint, shoulder region Bilateral hand pain Pain in limb Bilateral biceps tendonitis On statin therapy terminal superintendent (current) use of aspirin History of rheumatoid arthritis Personal history of arthritis History of osteoarthritis Personal history of arthritis Fatigue, unspecified type Vitamin D deficiency Unspecified vitamin D deficiency Dyslipidemia Other and unspecified hyperlipidemia Dorsalgia Pain in thoracic spine Chronic pain of both knees Cervicalgia Primary osteoarthritis of both knees Primary localized osteoarthrosis, lower leg Primary osteoarthritis of both hands Lumbar degenerative disc disease Degeneration of lumbar or lumbosacral intervertebral disc HNP (herniated nucleus pulposus), lumbar Displacement of lumbar intervertebral disc without myelopathy Disorder of bone and cartilage Disorder of bone and cartilage, unspecified Chronic pain of both wrists Chronic pain of both shoulders Pain in joint, shoulder region Bilateral hand pain Pain in limb Bilateral biceps tendonitis On statin therapy terminal superintendent (current) use of 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 History of rheumatoid arthritis Personal history of arthritis History of osteoarthritis Personal history of arthritis Fatigue, unspecified type Vitamin D deficiency Unspecified vitamin D deficiency Dyslipidemia Other and unspecified hyperlipidemia Dorsalgia Pain in thoracic spine Chronic pain of both knees Cervicalgia Primary osteoarthritis of both knees Primary localized osteoarthrosis, lower leg Primary osteoarthritis of both hands Lumbar degenerative disc disease Degeneration of lumbar or lumbosacral intervertebral disc HNP (herniated nucleus pulposus), lumbar Displacement of lumbar intervertebral disc without myelopathy Disorder of bone and cartilage Disorder of bone and cartilage, unspecified Chronic pain of both wrists Chronic pain of both shoulders Pain in joint, shoulder region Bilateral hand pain Pain in limb Bilateral biceps tendonitis On statin therapy penitentiary (current) use of aspirin History of rheumatoid arthritis Personal history of arthritis History of osteoarthritis Personal history of arthritis Fatigue, unspecified type Vitamin D deficiency Unspecified vitamin D deficiency Dyslipidemia Other and unspecified hyperlipidemia Dorsalgia Pain in thoracic spine Chronic pain of both knees Cervicalgia Primary osteoarthritis of both knees Primary localized osteoarthrosis, lower leg Primary osteoarthritis of both hands Lumbar degenerative disc disease Degeneration of lumbar or lumbosacral intervertebral disc HNP (herniated nucleus pulposus), lumbar Displacement of lumbar intervertebral disc without myelopathy Disorder of bone and cartilage Disorder of bone and cartilage, unspecified Chronic pain of both wrists Chronic pain of both shoulders Pain in joint, shoulder region Bilateral hand pain Pain in limb Bilateral biceps tendonitis On statin therapy penitentiary (current) use of aspirin History of rheumatoid arthritis Personal history of arthritis History of osteoarthritis Personal history of arthritis Fatigue, unspecified type Vitamin D deficiency Unspecified vitamin D deficiency Dyslipidemia Other and unspecified hyperlipidemia Dorsalgia Pain in thoracic spine Chronic pain of both knees Cervicalgia Primary osteoarthritis of both knees Primary localized osteoarthrosis, lower leg Primary osteoarthritis of both hands Lumbar degenerative disc disease Degeneration of lumbar or lumbosacral intervertebral disc HNP (herniated nucleus pulposus), lumbar Displacement of lumbar intervertebral disc without myelopathy Disorder of bone and cartilage Disorder of bone and cartilage, unspecified Chronic pain of both wrists Chronic pain of both shoulders Pain in joint, shoulder region Bilateral hand pain Pain in limb Bilateral biceps tendonitis On statin therapy penitentiary (current) use of aspirin History of rheumatoid arthritis Personal history of arthritis History of osteoarthritis Personal history of arthritis Fatigue, unspecified type Vitamin D deficiency Unspecified vitamin D deficiency Dyslipidemia Other and unspecified hyperlipidemia Dorsalgia Pain in thoracic spine Chronic pain of both knees [facility] Diagnosis Cervicalgia Primary osteoarthritis of both knees Primary localized osteoarthrosis, lower leg Primary osteoarthritis of both hands Lumbar degenerative disc disease Degeneration of lumbar or lumbosacral intervertebral disc HNP (herniated nucleus pulposus), lumbar Displacement of lumbar intervertebral disc without myelopathy Disorder of bone and cartilage Disorder of bone and cartilage, unspecified Chronic pain of both wrists Chronic pain of both shoulders Pain in joint, shoulder region Bilateral hand pain Pain in limb Bilateral biceps tendonitis On statin therapy 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 superintendent (current) use of 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 History of rheumatoid arthritis Personal history of arthritis History of osteoarthritis Personal history of arthritis Fatigue, unspecified type Vitamin D deficiency Unspecified vitamin D deficiency Dyslipidemia Other and unspecified hyperlipidemia Dorsalgia Pain in thoracic spine Chronic pain of both knees [facility] Diagnosis 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 [facility] Diagnosis Vitamin D deficiency- Primary Unspecified vitamin D deficiency Hyperglycemia Other abnormal glucose Hypercarbia Other dyspnea and respiratory abnormality Primary osteoarthritis of wrists, bilateral Primary osteoarthritis of both knees Primary localized osteoarthrosis, lower leg Primary osteoarthritis of both hands Osteopenia determined by x-ray 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 Osteoarthritis of carpometacarpal (CMC) joint of both thumbs Osteoarthritis of both glenohumeral joints Osteoarthritis of AC (acromioclavicular) joints, bilateral Lumbar degenerative disc disease Degeneration of lumbar or lumbosacral intervertebral disc Impingement syndrome of both shoulders Other affections of shoulder region, not elsewhere classified DDD (degenerative disc disease), cervical Degeneration of cervical intervertebral disc Chronic pain of both wrists Calcific tendonitis of right shoulder On statin therapy terminal superintendent (current) use of aspirin History of osteoarthritis Personal history of arthritis History of bilateral carpal tunnel release Elevated testosterone level in male Elevated BUN Other abnormal blood chemistry 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 [facility] Diagnosis Primary osteoarthritis of wrists, bilateral- Primary Primary osteoarthritis of both knees Primary localized osteoarthrosis, lower leg Primary osteoarthritis of both hands Osteopenia of left hip Osteopenia of left femoral neck Osteopenia determined by x-ray 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 Osteoarthritis of carpometacarpal (CMC) joint of both thumbs Osteoarthritis of both glenohumeral joints Osteoarthritis of AC (acromioclavicular) joints, bilateral Lumbar degenerative disc disease Degeneration of lumbar or lumbosacral intervertebral disc Impingement syndrome of both shoulders Other affections of shoulder region, not elsewhere classified HNP (herniated nucleus pulposus), lumbar Displacement of lumbar intervertebral disc without myelopathy DDD (degenerative disc disease), cervical Degeneration of cervical intervertebral disc Calcific tendonitis of right shoulder On statin therapy penitentiary (current) use of aspirin History of osteoarthritis Personal history of arthritis History of bilateral carpal tunnel release [facility] Diagnostic Procedure Only (Routine) - Closed Specialty Diagnoses / Procedures Referred By Naz t Referred To Contact XR IMAGING Diagnoses Left knee pain, unspecified chronicity Procedures XR KNEE GENERAL 4V AP BOTH/PA BOTH/LAT/MERC LEFT RADIOLOGIC EXAM KNEE COMPLETE 4/MORE VIEWS Junior Cdaet MD [address] [place] [address] Xr Imaging Referral ID Status Reason Start Date Expiration Date V isits Requested Visits Authorized [id number] Closed Auto-Generate d Referral 10/13/2021 11/12/2022 1 1 [facility] for visit Narrative* Diagnostic Procedure Only (Routine) - Closed Specialty Diagnoses / Procedures Referred By Contac t Referred To Contact XR IMAGING Diagnoses Left knee pain, unspecified chronicity Procedures XR KNEE GENERAL 4V AP BOTH/PA BOTH/LAT/MERC LEFT RADIOLOGIC EXAM KNEE COMPLETE 4/MORE VIEWS Junior Cadet MD [address] [place] [address] Xr Imaging Referral ID Status Reason Start Date Expiration Date V isits Requested Visits Authorized [id number] Closed Auto-Generate d Referral 10/13/2021 11/12/2022 1 1 [facility] Summary Purpose Family History No Family History Records FoundNo Family History Records FoundNo Family History Records FoundNo Family History Records FoundNo Family History Records FoundNo Family History Records FoundNo Family History Records FoundNo Family History Records FoundNo Family History Records FoundNo Family History Records FoundNo Family History Records Found Advance Directives No Advanced Directives Records FoundDocuments on File Type Date Recorded Patient Denial Management Representative Expl anation Advance Directives and Living Will Documents on File Type Date Recorded Patient Denial Management Representative Expl anation Advance Directives and Living Will Documents on File Type Date Recorded Patient Denial Management Representative Expl anation Advance Directives and Livin g Will 01/17/2021 10:06 AM Documents on File Type Date Recorded Patient Denial Management Representative Expl anation Advance Directives and Livin g Will 01/17/2021 10:06 AM Documents on File Type Date Recorded Patient Denial Management Representative Expl anation Advance Directive(s) 07/05/2021 6:45 AM Advance Directive(s) 06/20/2021 9:54 AM Documents on File Type Date Recorded Patient Denial Management Representative Expl anation Advance Directive(s) 07/05/2021 6:45 AM Advance Directive(s) 06/20/2021 9:54 AM History of Present Illness * Boy Newman MD - 02/24/2019 3:00 PM EDT DATE: 02/24/2019 CHIEF COMPLAINT: Chief Complaint Patient presents with Follow-up No concerns HISTORY OF PRESENT ILLNESS: Jaye Maya is a 84 y.o. male with prior history of elevated PSA. Initially seen by and referred by me from [facility], last seen 08/13/18. Duration: 20 years Aggravating Factors: none Alleviating Factors: none Associated Symptoms: none Systemic:The patient denies any weight loss, malaise, fatigue, pain, or night sweats. Urinary: The patient reports normal FOS and urinary function. Patient denies urinary dysuria, frequency, urgency, nocturia, hematuria, or incontinence. Bowel: No constipation, diarrhea, or fecal incontinence Dx elevated PSA, usually 5-9, neg pbx x2 (01/13/13, 06/12/01), chronic prostatitis, 118.76 g, family hx plastic roller (brother). HISTORY: PMH Past Medical History: Diagnosis Date Hyperlipemia Hypertension PSH Past Surgical History: Procedure Laterality Date heart stent 9 years ago SH Social History Socioeconomic History Marital status: Spouse name: Not on file Number of children: Not on file Years of education: Not on file Highest education level: Not on file Occupational History Not on file Social Needs Financial resource strain: Not on file Food insecurity: Worry: Not on file Inability: Not on file Transportation needs: Medical: Not on file Non-medical: Not on file Tobacco Use Smoking status: Never Smoker Smokeless tobacco: Never Used Substance and Sexual Activity Alcohol use: Not Currently Drug use: Never Sexual activity: Not on file Lifestyle Physical activity: Days per week: Not on file Minutes per session: Not on file Stress: Not on file Relationships Social connections: Talks on phone: Not on file Gets together: Not on file Attends scientology service: Not on file Active member of club or organization: Not on file Attends meetings of clubs or organizations: Not on file Relationship status: Not on file Other Topics Concern Not on file Social History Narrative Not on file FH Family History Problem Relation Age of Onset Cancer Brother Prostate, 2 brothers ALLERGIES AND MEDICATIONS Allergies: no known allergies. Current Outpatient Medications: aspirin 81 MG EC tablet, Take 81 mg by mouth daily ., Disp: , Rfl: atorvastatin (LIPITOR) 80 MG tablet, atorvastatin 80 mg tablet, Disp: , Rfl: cholecalciferol, vitamin D3, (VITAMIN D3) 1,000 unit capsule, Take 1,000 Units by mouth daily ., Disp: , Rfl: ezetimibe (ZETIA) 10 mg tablet, ezetimibe 10 mg tablet 1 tab qd, Disp: , Rfl: hydroCHLOROthiazide (HYDRODIURIL) 50 MG tablet, Take 50 mg by mouth daily ., Disp: , Rfl: lisinopril (PRINIVIL,ZESTRIL) 20 MG tablet, Take 20 mg by mouth daily ., Disp: , Rfl: metoprolol succinate 100 mg CSpX, Take 50 mg by mouth ., Disp: , Rfl: multivit-min/ferrous fumarate (MULTI VITAMIN ORAL), Take 1 tablet by mouth every night at bedtime ., Disp: , Rfl: omeprazole (PRILOSEC) 10 MG capsule, 20 mg ., Disp: , Rfl: potassium chloride in 0.9% NaCl 10 mEq/100 mL, 8 mEq ., Disp: , Rfl: simvastatin (ZOCOR) 10 MG tablet, Take 40 mg by mouth ., Disp: , Rfl: REVIEW OF SYSTEMS: CONSTITUTIONAL: No weight loss, malaise, or fatigue EYES: No changes in vision, no blurry vision EARS, NOSE, MOUTH, THROAT: No change in hearing, No difficulty swallowing. CARDIOVASCULAR: No chest pain or heart palpitations. RESPIRATORY: No difficulty breathing or wheezing. GI: No changes in bowel habit. No blood in his stool. : No dysuria, hematuria, or urinary tract infections. The rest as above in the HPI. MUSCULOSKELETAL: No joint pain or swelling. VASCULAR: No peripheral edema. No calf pain with exertion. NEURO: No changes in gait or sensation. SKIN: No rashes or lesions. PSYCHIATRIC: No depressive or suicidal thoughts PHYSICAL EXAM: CONSTITUTIONAL: VITAL SIGNS: Vitals: 02/24/19 1441 BP: (!) 108/59 Pulse: 71 Weight: 83.9 kg (185 lb) Height: 5' 10 GENERAL: Well appearing. No acute distress. EYES: PERRLA, EOMI EARS, NOSE, MOUTH, THROAT: mucous memebranes moist, trachea midline CARDIOVASCULAR: RRR, normal carotid pulse, no peripheral edema. ABDOMEN: Soft, nondistended, nontender. BACK: No CVA tenderness. : Deferred per patient MUSCULOSKELETAL: normal extremity ROM with no edema LYMPH: No cervical or supraclavicular lymphadenopathy NEURO: Normal gait, CN II-XII grossly intact PSYCHATRIC: A & O x3, mood and affect appropriate SKIN: No rashes, ulcers, or lesions visible DATA: IMAGING: LAB: 01/28/18 PSA 8.58, free 24% 07/03/17 PSA 7.93, free 25% 01/02/17 PSA 11.58 ASSESSMENT / PLAN: Problem List Items Addressed This Visit Other Elevated PSA - Primary Dx elevated PSA, usually 5-9, neg pbx x2 (01/13/13, 06/12/01), chronic prostatitis, 118.76 g, family hx plastic roller (brother). Minimal LUTS, pt declined offer of Rx. Plan F+T PSA today. Plan f/u 6 months with F+T PSA Relevant Orders PSA, Total and Free @[employer]@ documented in this encounter* Boy Newman MD - 10/30/2019 9:15 AM EDT Phone call 10/30/19 Dx BPH, 118 g Pt reports UTI in past 8 months Pt reports BPH/LUTS: slow stream, nocturia Pt prefers to try Rx at this time Discussed alpha blockers vs 5ARIs Plan to try finasteride 5 mg QD [facility] Plan f/u 3 months documented in this encounter Assessments Diagnosis Elevated PSA- Primary Elevated prostate specific antigen (PSA) Reason for Referral Status Reason Specialty Diagnoses / Procedures Referred By Contact Referred To Contact Authorized Cardiology 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 Procedures ECG 12 Lead Cinthya Barbour MD [address] [place] [address] Specialty Diagnoses / Procedures Referred By Naz otto Referred To Contact Radiology Diagnoses Gross hematuria Procedures CT Urogram Boy Newman MD [address] [place] [address] [address] [place] [address] Referral ID Status Reason Start Date Expiration Date V isits Requested Visits Authorized [id number] New Request 04/04/2021 04/04/2022 1 1 Specialty Diagnoses / Procedures Referred By Naz otto Referred To Contact Radiology 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 Procedures NM Myocardial Perfusion Multiple SPECT Yash Jovel DO [address] [place] [address] Referral ID Status Reason Start Date Expiration Date V isits Requested Visits Authorized [id number] New Request 04/19/2021 04/19/2022 4 4 Specialty Diagnoses / Procedures Referred By Contac t Referred To Contact Diagnoses Vitamin D deficiency Hyperglycemia Hypercarbia Primary osteoarthritis of wrists, 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 Osteopenia determined by x-ray 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 Osteoarthritis of carpometacarpal (CMC) joint of both thumbs Osteoarthritis of both glenohumeral joints Osteoarthritis of AC (acromioclavicular) joints, bilateral Lumbar degenerative disc disease Impingement syndrome of both shoulders DDD (degenerative disc disease), cervical Chronic pain of both wrists Calcific tendonitis of right shoulder On statin therapy [facility] (current) use of aspirin History of osteoarthritis History of bilateral carpal tunnel release Elevated testosterone level in male Elevated BUN Age-related osteoporosis without current pathological fracture Procedures BONE DENSITY AXIAL (HIP, PELVIS, SPINE) Alfonso Bryant, Cole Finley, DO [address] [place] [address] Referral ID Status Reason Start Date Expiration Date V isits Requested Visits Authorized [id number] New Request 08/22/2023 09/15/2024 1 1 Medications Administered Section Active Administered Medications - up to 3 most recent administrations Medication Order MAR Action Action Date Dose Rate Site tropicamide 1 % 1 Drop (MYDRIACYL) 1 Drop, BOTH EYES, DIRECTED, Starting on Sun04/04/22 at 1130, Until Sun04/04/22 at 2329, Administer for dilation Given 04/04/2022 11:30 AM EDT 1 Drop Active Administered Medications - up to 3 most recent administrations Medication Order MAR Action Action Date Dose Rate Site fluorescein-benoxinate 0.25-0.4 % 1 Drop (FLURESS) 1 Drop, BOTH EYES, DIRECTED, Starting on Sun11/01/22 at 1400, Until Sun11/02/22 at 0159, Administer for applanation tonometry. In the event of a Fluress shortage, administer Joseline-Fluor 1 drop into both eyes as directed for applanation tonometry Given 11/01/2022 2:00 PM EDT 1 Drop tropicamide 1 % 1 Drop (MYDRIACYL) 1 Drop, BOTH EYES, DIRECTED, Starting on Sun11/01/22 at 1400, Until Muriel 11/02/22 at 0159, Administer for dilation Given 11/01/2022 2:00 PM EDT 1 Drop Additional Source Comments (unrecognized sect ion and content) No Status Records FoundNo Status Records FoundNo Status Records FoundNo Status Records FoundNo Status Records FoundNo Status Records FoundNo Status Records FoundNo Status Records FoundNo Status Records FoundNo Status Records FoundNo Status Records Found INFORMATION SOURCE (unrecogn ized section and content) DATE CREATED AUTHOR AUTHOR'S ORGANIZ ATION 09/05/2019 [facility] DATE CREATED AUTHOR AUTHOR'S ORGANIZ ATION 03/04/2021 [facility] DATE CREATED AUTHOR AUTHOR'S ORGANIZ ATION 05/06/2021 [facility] DATE CREATED AUTHOR AUTHOR'S ORGANIZ ATION 04/10/2022 [facility] DATE CREATED AUTHOR AUTHOR'S ORGANIZ ATION 02/03/2023 [facility] DATE CREATED AUTHOR AUTHOR'S ORGANIZ ATION 04/15/2023 [facility] DATE CREATED AUTHOR AUTHOR'S ORGANIZ ATION 04/27/2023 [facility] DATE CREATED AUTHOR AUTHOR'S ORGANIZ ATION 07/11/2023 [facility] DATE CREATED AUTHOR AUTHOR'S ORGANIZ ATION 10/06/2023 [facility] DATE CREATED AUTHOR AUTHOR'S ORGANIZ ATION 10/09/2023 [facility] Reason for Visit (unrecogniz ed section and content) Reason Comments Annual Exam Status Reason Specialty Diagnoses / Procedures Referre d By Contact Referred To Contact Closed Cardiology 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 Procedures ECG 12 Lead Cinthya Barbour MD [address] [place] [address] Reason Onset Date Comments Medication Refill 02/15/2021 Reason Comments Follow-up 6 month f/u Reason Comments Follow-up Reason Comments Cystoscopy Reason Comments 11 months post visit with Sola Gel One injection given left knee Follow Up Reason Comments Imm/Inj Reason Onset Date Comments Medication Refill 02/02/2022 Reason Comments Glaucoma Suspect Evaluation Cataract Evaluation Benign Neoplasm, Lid Evaluation Right ey e Prediabetic Reason Comments 6 month check up Symptoms have improv ed, nocturia 1-2x Reason Comments Cataract Evaluation Reason Comments Post-op Cataract OU OS 12/28OD 01/11 Reason Comments Post-op Cataract Dr. [facility] [place] [facility] eye- 01/11/2023Left eye- 12/28/2022 Reason Comments Post-op Cataract OU OS 12/28/22OD Reason Comments Follow-up No new or worsening symptoms Reason Comments New Patient Patient was referred her by Dr. Cunningham for RA. Patient states he has been going to [place] to see cook barbecue and is here to get established. Reason Comments Consult Lesion on kidney, pa ncreas Reason Comments Follow-up Patient is here for 2 week Follow-up. Patient states feels about the same since last visit. States his fingers do not move like he wants them too. Reason Comments Follow-up Patient is here for Follow-up after DEXA. Patient states is doing pretty good since last visit. Assessment & Plan Note - Boy Newman MD - 02/24/2019 3:08 PM EDT Miscellaneous Notes (unrecog nized section and content) Associated Problem(s): Elevated PSA Dx elevated PSA, usually 5-9, neg pbx x2 (01/13/13, 06/12/01), chronic prostatitis, 118.76 g, family hx plastic roller (brother). Minimal LUTS, pt declined offer of Rx. Plan F+T PSA today. Plan f/u 6 months with F+T PSA documented in this encounter Care Teams (unrecognized sec tion and content) Bookkeeping Assistant Relationship Specialty Start Date End Date Hugo Cunningham MD [address] [place] [address] PCP - General 03/15/12 Cinthya Barbour MD [address] [place] [phone] Consulting Physician Cardiology 12/09/19 Bookkeeping Assistant Relationship Specialty Start Date End Date Hugo Cunningham MD [address] [facility] [address] [place] [address] PCP - General 03/15/12 Cinthya Barbour MD [address] [place] [phone] Consulting Physician Cardiology 12/09/19 Bookkeeping Assistant Relationship Specialty Start Date End Date Hugo Cunningham PCP - General 10/04/09 Bookkeeping Assistant Relationship Specialty Start Date End Date Hugo Cunningham PCP - General 10/04/09 Bookkeeping Assistant Relationship Specialty Start Date End Date Hugo Cunningham PCP - General 10/04/09 Bookkeeping Assistant Relationship Specialty Start Date End Date Hugo Cunningham MD [address] [facility] [address] [place] [address] PCP - General 03/15/12 Cinthya Barbour MD [address] [place] [phone] Consulting Physician Cardiology 12/09/19 Bookkeeping Assistant Relationship Specialty Start Date End Date Hugo Cunningham PCP - General 10/04/09 Bookkeeping Assistant Relationship Specialty Start Date End Date Hugo Cunningham PCP - General 10/04/09 Bookkeeping Assistant Relationship Specialty Start Date End Date Hugo Cunningham PCP - General 10/04/09 Bookkeeping Assistant Relationship Specialty Start Date End Date Hugo Cunningham MD [address] [facility] [address] [place] [address] PCP - General 03/15/12 Cinthya Barbour MD [address] [place] [phone] Consulting Physician Cardiology 12/09/19 Bookkeeping Assistant Relationship Specialty Start Date End Date Hugo Cunningham PCP - General 10/04/09 Bookkeeping Assistant Relationship Specialty Start Date End Date Hugo Cunningham MD [address] [facility] [address] [place] [address] PCP - General 03/15/12 Cinthya Barbour MD [address] [place] [phone] Consulting Physician Cardiology 12/09/19 Bookkeeping Assistant Relationship Specialty Start Date End Date Hugo Cunningham PCP - General 10/04/09 Bookkeeping Assistant Relationship Specialty Start Date End Date Hugo Cunningham PCP - General 10/04/09 Bookkeeping Assistant Relationship Specialty Start Date End Date Hugo Cunningham PCP - General 10/04/09 Bookkeeping Assistant Relationship Specialty Start Date End Date Hugo Cunningham MD [address] [place] [address] PCP - General 03/15/12 Cinthya Barbour MD [address] [place] [phone] Consulting Physician Cardiology 12/09/19 Bookkeeping Assistant Relationship Specialty Start Date End Date Hugo Cunningham MD [address] [place] [phone] PCP - General Internal Medicine 07/31/23 Bookkeeping Assistant Relationship Specialty Start Date End Date Hugo Cunningham MD [address] [place] [phone] PCP - General Internal Medicine 07/31/23 Bookkeeping Assistant Relationship Specialty Start Date End Date Hugo Cunningham MD PCP - General 10/04/09 Bookkeeping Assistant Relationship Specialty Start Date End Date Hugo Cunningham MD [address] [place] [phone] PCP - General Internal Medicine 07/31/23 Bookkeeping Assistant Relationship Specialty Start Date End Date Hugo Cunningham MD PCP - General 10/04/09 Bookkeeping Assistant Relationship Specialty Start Date End Date uHgo Cunningham MD [address] [place] [address] PCP - General Internal Medicine 07/31/23 Source Comments (unrecognize d section and content) In the event this informatio n is protected by the Federal Confidentiality of Alcohol and Drug Abuse Patient Records regulations: The Federal rules restrict any use of the information to criminally investigate or prosecute any alcohol or drug abuse patient.[facility] the event this information is protected by the Federal Confidentiality of Alcohol and Drug Abuse Patient Records regulations: The Federal rules restrict any use of the information to criminally investigate or prosecute any alcohol or drug abuse patient.[facility] the event this information is protected by the Federal Confidentiality of Alcohol and Drug Abuse Patient Records regulations: The Federal rules restrict any use of the information to criminally investigate or prosecute any alcohol or drug abuse patient.[facility] the event this information is protected by the Federal Confidentiality of Alcohol and Drug Abuse Patient Records regulations: The Federal rules restrict any use of the information to criminally investigate or prosecute any alcohol or drug abuse patient.[facility] the event this information is protected by the Federal Confidentiality of Alcohol and Drug Abuse Patient Records regulations: The Federal rules restrict any use of the information to criminally investigate or prosecute any alcohol or drug abuse patient.[facility] the event this information is protected by the Federal Confidentiality of Alcohol and Drug Abuse Patient Records regulations: The Federal rules restrict any use of the information to criminally investigate or prosecute any alcohol or drug abuse patient.[facility] the event this information is protected by the Federal Confidentiality of Alcohol and Drug Abuse Patient Records regulations: The Federal rules restrict any use of the information to criminally investigate or prosecute any alcohol or drug abuse patient.[facility] the event this information is protected by the Federal Confidentiality of Alcohol and Drug Abuse Patient Records regulations: The Federal rules restrict any use of the information to criminally investigate or prosecute any alcohol or drug abuse patient.[facility] the event this information is protected by the Federal Confidentiality of Alcohol and Drug Abuse Patient Records regulations: The Federal rules restrict any use of the information to criminally investigate or prosecute any alcohol or drug abuse patient.[facility] the event this information is protected by the Federal Confidentiality of Alcohol and Drug Abuse Patient Records regulations: The Federal rules restrict any use of the information to criminally investigate or prosecute any alcohol or drug abuse patient.[facility] the event this information is protected by the Federal Confidentiality of Alcohol and Drug Abuse Patient Records regulations: The Federal rules restrict any use of the information to criminally investigate or prosecute any alcohol or drug abuse patient.[facility] the event this information is protected by the Federal Confidentiality of Alcohol and Drug Abuse Patient Records regulations: The Federal rules restrict any use of the information to criminally investigate or prosecute any alcohol or drug abuse patient.[facility] the event this information is protected by the Federal Confidentiality of Alcohol and Drug Abuse Patient Records regulations: The Federal rules restrict any use of the information to criminally investigate or prosecute any alcohol or drug abuse patient.[facility] FOR RECORDS PERTAINING TO PATIENTS WHO ARE OR HAVE BEEN ENROLLED IN A CHEMICAL DEPENDENCY/SUBSTANCEABUSE PROGRAM, SOME INFORMATION MAY BE OMITTED. This clinical summary was aggregated from multiple sources. Caution should be exercised in using it in the provision of clinical care. This summary normalizes information from multiple sources, and as a consequence, information in this document may materially change the coding, format and clinical context of patient data. In addition, data may be omitted in some cases. CLINICAL DECISIONS SHOULD BE BASED ON THE PRIMARY CLINICAL RECORDS. [facility]. provides no warranty or guarantee of the accuracy or completeness of information in this document.
--- NOTE | 2023-10-14 00:07 | EKG12_ITS ---
Test Reason : DYSRHYTHMIA Blood Pressure : / mmHG Vent. Rate : 079 BPM Atrial Rate : 079 BPM P-R Int : 168 ms QRS Dur : 102 ms QT Int : 388 ms P-R-T Axes : -25 015 043 degrees QTc Int : 444 ms Normal sinus rhythm Normal ECG Confirmed by Perry Osborn ([id number]), art editor LAWRENCE SONI ([id number]) on 10/16/2023 8:16:00 AM Referred By: Confirmed By:Perry Osborn
--- NOTE | 2023-10-14 00:07 | RAD_ITS ---
INDICATION: fever EXAMINATION/TECHNIQUE: X-RAY - XR Chest 2 Views COMPARISON: 03/13/2021. FINDINGS: LINES/DEVICES: None. LUNGS: No consolidation or evidence of an effusion. No evidence of edema or a pneumothorax. Stable scarring in the left lung base. Hyperexpansion of the lungs and flattening the diaphragm which may represent COPD. MEDIASTINUM AND CARDIOVASCULAR STRUCTURES: Cardiac silhouette is normal in size and contour. Mediastinum is unremarkable. BONES AND SOFT TISSUES: No acute abnormality. RAD/Chest PA and Lateral IMPRESSION: No evidence of acute cardiopulmonary disease. Electronically Signed: Boy Muhammad DO at 1:06 EST ,
[2023-10-14 00:37] LABS: Absolute Lymphocyte Count 0.38 X10^3/uL (0.83-4.51); Absolute Neutrophil Count 3.6 X10^3/uL (2.0-7.7); Basophil# 0.01 X10^3/uL; Basophil% 0.2 % (0-1); Hematocrit 41.2 % (40-54); Hemoglobin 13.6 g/dL (13.0-16.5); Lymphocyte # 0.38 X10^3/ul (0.83-4.51); Lymphocyte % 8.9 % (19-41); Mean Corpuscular Hgb 29.8 pg (27.0-32.0); Mean Corpuscular Volume 90.2 fL (80-94); Mean Platelet Vol. 11.9 fl (6.2-12.0); Monocyte# 0.28 X10^3/uL; Monocyte% 6.5 % (0-10); NRBC Flagged by Analyzer 0 % (0-5); Neutrophil # 3.59 X10^3/uL (2.7-7.7); Neutrophil % 83.9 % (47-70); POSITIVE COUNT YES; POSITIVE DIFFERENTIAL YES; Platelet Count 55 K/mm3 (150-450); RBC Distribution Width CV 12.5 % (11.6-14.6); RBC Distribution Width SD 41.5 fl (35.1-43.9); Red Blood Count 4.57 M/mm3 (4.6-6.2); White Blood Count 4.3 K/mm3 (4.4-11.0)
[2023-10-14 00:47] LABS: Differential Indicated SCAN CRITERIA MET
[2023-10-14] MEDS: Ketorolac 15 MG/ML Vial IV (00:47)
[2023-10-14] MEDS: 0.9% Normal Saline (500mL Bag) 500 ML 1000 ML IV (00:47)
[2023-10-14 00:57] LABS: ALB/GLOB Ratio 0.9 RATIO (0.9-2.4); AST(SGOT) 62 U/L (15-37); Alanine Aminotransfer ALT/SGPT 35 U/L (16-61); Albumin, Serum 2.9 g/dL (3.2-5.0); Alkaline Phosphatase 53 U/L (45-117); Anion Gap 7 (5-15); BUN 33 mg/dL (7-18); BUN/Creat Ratio 22.6 RATIO (10-20); Calcium,Total 8.2 mg/dL (8.5-10.1); Chloride 104 mmol/L (98-107); Creatinine, Serum 1.46 mg/dL (0.70-1.30); EST Glomerular Filtration Rate 49 mL/min (>60); Est Glom Filt Rate - Afr Amer 59 mL/min (>60); Estimated Creatinine Clearance 38.91 ml/min; Globulin 3.3 g/dL (2.2-4.2); Glucose 146 mg/dL (74-106); Potassium 3.4 mmol/L (3.5-5.1); Protein, Total 6.2 g/dL (6.4-8.2); Sodium Level 136 mmol/L (136-145)
[2023-10-14 01:24] LABS: Differential Comment SCANNED
[2023-10-14 01:34] LABS: Mucous, Urine 0 SEEN /hpf (<or=2+); Red Blood Cells-Urine 0 SEEN /hpf (0-5)
[2023-10-14 01:35] VITALS: BP 112/57; PULSE 74; RESP 18; TEMP 36.6; O2SAT 98
[2023-10-14 01:35] LABS: Color, Urine Yellow (Yellow); Glucose, Dipstick Normal (Normal); Ketone-Dipstick 50 mg/dl (Negative); Leukocyte Esterase-Dipstick Negative /ul (Negative); Nitrite-Dipstick Negative (Negative); Occult Blood-Urine 250 /ul (Negative); Protein-Dipstick 100 mg/dl (Negative); Urine Bilirubin Dipstick Negative (Negative); Urine Clarity Sl. Cloudy (Clear); Urine Urobilinogen 1 mg/dl (Normal)
[2023-10-14 01:36] LABS: Lactic Acid 1.1 mmol/L (0.4-1.9)
[2023-10-14 01:44] LABS: White Blood Cells 5-10 SEEN /hpf (0-5)
[2023-10-14 01:45] LABS: Bacteria 4+ /hpf (None Seen); Renal Epithelial Cells 0 SEEN /hpf (0-5); Squamous Epithelial Cells - UA 10-25 SEEN /hpf (0-5); Transitional Epithelial - Ur 0 SEEN /hpf (0-5)
[2023-10-14] MEDS: Doxycycline 100 MG CAPSULE 200 MG PO (03:15)
[2023-10-14 03:20] VITALS: BP 116/67; PULSE 69; RESP 18; TEMP 36.6; O2SAT 100
== END 2023-10-14 03:20 | disposition home or self-care (01) ==
PROVIDERS: Emergency Provider Emergency Medicine; Visit Provider Emergency Medicine
DX: R50.9 Fever, unspecified (principal); E11.9 Type 2 diabetes mellitus without complications; E80.6 Other disorders of bilirubin metabolism; E87.6 Hypokalemia; I10 Essential (primary) hypertension; K21.9 Gastro-esophageal reflux disease without esophagitis; E78.00 Pure hypercholesterolemia, unspecified
CPT/HCPCS: 71046; 80053; 81001; 83605; 85025; 87631; 93005; 96361; 96374; 99284; J7040; A4216